=== PATIENT | male | born 1965 | race Caucasian/White ===

== ENCOUNTER 2022-10-30 10:51 | Outpatient (OUT) | payer OTHER, SELFPAY ==
--- NOTE | 2022-10-30 11:30 | NM_ITS ---
[address] [address] Patient Name: PATRICE KANG MRN: [id number] date: 1965 Sex: M Assigned Patient Location: [place] Current [place] Location: [place] Accession/Order Number: [id number] Exam Date: 10/30/2022 11:10 Report Date: 10/30/2022 14:36 At the request of: JOAN LOTFON Procedure: [place] muga EXAMINATION: [place] muga HISTORY: Acute on chronic systolic heart failure COMPARISON: No relevant comparison available. TECHNIQUE: Pyrophosphate 12 mg. Sodium Pertechnetate 25.7 mCi FINDINGS: BEATS ACCEPTED: 486 BEATS REJECTED: 14 HEAR RATE: 56 bpm. LEFT VENTRICLE EJECTION FRACTION: 54% (Normal >55%) IMPRESSION: 1. Borderline low left ventricular ejection fraction (just below lower limits of normal). Electronically authenticated by: TISH MALDONADO Date: 10/30/2022 14:36
== END 2022-10-30 10:52 | disposition home or self-care (01) ==
LOC: NM 10:55
PROVIDERS: Visit Provider Nurse Practitioner
DX: I50.23 Acute on chronic systolic (congestive) heart failure (principal); I42.8 Other cardiomyopathies; R94.39 Abnormal result of other cardiovascular function study
CPT/HCPCS: 78472; A9560

== ENCOUNTER 2022-11-08 13:00 | Outpatient (OUT) | payer OTHER, SELFPAY ==
--- NOTE | 2022-11-08 13:55 | XR_ITS ---
The [address] [address] Patient Name: PATRICE KANG MRN: [id number] date: 1965 Sex: M Assigned Patient Location: LAB Current Patient Location: LAB Accession/Order Number: [id number] Exam Date: 11/08/2022 13:48 Report Date: 11/11/2022 09:12 At the request of: JOAN LOFTON Procedure: XR chest 2V EXAMINATION: XR chest 2V HISTORY: Long-term drug use (amiodarone) Z79.899 COMPARISON: 05/30/2022 TECHNIQUE: PA and lateral FINDINGS: LUNGS: No significant pulmonary parenchymal abnormalities. VASCULATURE: No increased pulmonary vasculature. PLEURA: No pneumothorax, effusion, or pleural thickening. CARDIAC: No cardiomegaly or cardiac silhouette abnormality. MEDIASTINUM: No visible mass or adenopathy. BONES: No fracture or visible bone lesion. Healed left lateral fifth rib fracture OTHER: Negative. XR/XR chest 2V IMPRESSION: No acute cardiopulmonary process Electronically authenticated by: CRISTAL IVORY Date: 11/11/2022 09:12
[2022-11-08 14:37] LABS: Free T4 1.14 ng/dL (0.76-1.46)
[2022-11-08 14:39] LABS: Alanine Aminotransferase 24 U/L (16-63); Albumin Globulin Ratio 1.1; Alkaline Phosphatase 47 U/L (46-116); Aspartate Amino Transferase 20 U/L (15-37); Bilirubin Direct 0.2 mg/dL (0.0-0.2); Bilirubin Total 0.6 mg/dL (0.2-1.0); Globulin 3.6 g/dL; Thyroid Stimulating Hormone 1.912 uIU/mL (0.358-3.740); Total Protein 7.6 g/dL (6.4-8.2)
== END 2022-11-08 13:01 | disposition home or self-care (01) ==
LOC: LAB 13:02
PROVIDERS: Visit Provider Nurse Practitioner
DX: Z79.899 Other long term (current) drug therapy (principal)
CPT/HCPCS: 36415; 71046; 80076; 84439; 84443

== ENCOUNTER 2022-11-14 12:52 | Outpatient (OUT) | payer OTHER, SELFPAY ==
[2022-11-14 12:59] LABS: Hemoglobin 15.9 g/dL (14.0-18.0)
--- NOTE | 2022-11-14 14:10 | RT_ITS ---
The [facility] Test Date: 2022-11-14 Pat Name: PATRICE KANG Department: Room: - Gender: Male Community Pharmacist: Jorge Boyle RRT : 1965 Requested By: [id number] Order Number: [id number] Reading MD: Deniz Hargrove Interpretive Statements Pulmonary function testing was completed according to ATS criteria. Findings were considered accurate and reproducible, with exception of pre-bronchodilator FVC which did not meet ATS standards. Both pre- and post-bronchodilator values utilized for spirometry. No prior studies available for comparison. Spirometry (based on pre-bronchodilator values): -FEV1/FVC: Reduced @ 67% -FEV1: Normal @ 104% -FVC: Normal @ 119% Spirometry (based on post-bronchodilator values): -FEV1/FVC: Low normal @ 74% -FEV1: Normal @ 109% -FVC: Normal @ 114% -There is no significant bronchodilator response. Lung volumes by plethysmography (based on pre-bronchodilator values): -RV: Increased @ 143% -TLC: High normal @ 120% Diffusion capacity: -DLCO: ??zahra severe reduction @ 12% when corrected for Hb 15.9g/dL Flow-volume loop: -Mild obstructive pattern Impressions: -Spirometry appears to trend to mild obstruction (given non-repeatability of initial FVC) without a bronchodilator response. Elevated RV suggests air trapping. Extreme reduction in diffusion capacity out of proportion to spirometry and plethysmography, even if accounting for patient smoking prior to testing - I question the vailidity of this value. May consider repeating diffusion capacity, or correlate with clinical status. Electronically Signed On 11-18-2022 12:54:16 EDT by Deniz Hargrove
[2022-11-14] MEDS: ALBUTEROL SULFATE 2.5 MG/3 ML VIAL NEB IH (14:25)
== END 2022-11-14 12:53 | disposition home or self-care (01) ==
LOC: CARD 12:53
PROVIDERS: Visit Provider Nurse Practitioner
DX: Z79.899 Other long term (current) drug therapy (principal); F17.210 Nicotine dependence, cigarettes, uncomplicated
CPT/HCPCS: 36415; 85018; 94060; 94726; 94729; 99406

== ENCOUNTER 2022-11-19 19:32 | Outpatient (OUT) | payer OTHER, SELFPAY | END 2022-11-19 19:33 | disposition home or self-care (01) | LOC: SLEEP 19:32 | PROVIDERS: PCP Nurse Practitioner; Visit Provider Nurse Practitioner | DX: G47.33 Obstructive sleep apnea (adult) (pediatric) (principal); G47.31 Primary central sleep apnea | CPT/HCPCS: 95810 ==

== ENCOUNTER 2022-12-03 19:44 | Outpatient (OUT) | payer OTHER, SELFPAY | END 2022-12-03 19:45 | disposition home or self-care (01) | LOC: SLEEP 19:45 | PROVIDERS: PCP Nurse Practitioner; Visit Provider Nurse Practitioner | DX: G47.33 Obstructive sleep apnea (adult) (pediatric) (principal) | CPT/HCPCS: 95811 ==

== ENCOUNTER 2023-04-16 14:45 | Outpatient (OUT) | payer OTHER, SELFPAY ==
--- NOTE | 2023-04-16 15:45 | CA_ITS ---
Patient Name: PATRICE KANG MR#: [id number] : 1965 Exam Date: 04/16/2023 Ordering Doctor: RICA MAJOR ECHOCARDIOGRAM REPORT PROCEDURE: CA ECHO DOPPLER COMPLETE INDICATIONS: Heart failure with reduced ejection fraction COMPARISON: None. DESCRIPTION: COMPLETE ECHOCARDIOGRAM Real-time transthoracic echocardiography with 2D, M-mode, spectral and color flow Doppler performed. QUALITY: Technical quality was good. LEFT VENTRICLE: Normal chamber size. Normal left ventricular wall thickness. LV EF: Global left ventricular systolic function is mildly decreased. Visual estimation of left ventricular ejection fraction is 45-50%. Diffuse hypokinesis. DIASTOLIC: Grade I diastolic dysfunction. ATRIAL SEPTUM: Inadequately seen. LEFT ATRIUM: Mild dilatation. RIGHT ATRIUM: Mild dilatation. RIGHT VENTRICLE: Normal chamber size. Normal right ventricular systolic function. TRICUSPID VALVE: Normal mobility and thickness. Mild regurgitation. No evidence of pulmonary hypertension. RVSP 28mmHg MITRAL VALVE: Normal mobility and thickness. No evidence of mitral valve stenosis. Mild mitral annular calcification. Moderate mitral regurgitation. AORTIC VALVE: Normal trileaflet appearance. No visible sclerosis. Normal leaflet mobility. No evidence of aortic valve stenosis. Trivial aortic regurgitation. AORTIC ROOT: Normal diameter and appearance. PULMONIC VALVE: Normal thickness and mobility. No stenosis. No regurgitation. PERICARDIUM: No evidence of pericardial effusion. IVC: Collapses with inspirations. Normal size. CONCLUSION: 1. Global left ventricular systolic function is mildly decreased; visually estimated ejection fraction is 45 to 60% 2. Normal right ventricular size and systolic function 3. Biatrial enlargement 4. Grade 1 diastolic dysfunction 5. Mild tricuspid regurgitation 6. Moderate mitral regurgitation Adult Echocardiography Procedure Report Left Ventricle LVEDD (3.7 - 5.6 cm): 5.21 cm LVESD (2.2 - 4.0 cm): 3.76 cm LVIVS thickness (0.6 - 1.2 cm): 0.92 cm LVPW thickness (0.5 - 1.0 cm): 1.01 cm e': 0.09 m/s E - e': 7.66 LVOT Max Gradient: 3.69 mm[Hg] LVOT Area (cm2): 0.96 m/s Peak Velocity (LVOT): 0.96 m/s Mean Velocity (LVOT): 0.64 m/s LVOT Diameter 2.11 cm Left Ventricular Ejection Fraction: 49.16 % Left Atrium LA Volume Index (2D A2C): 35.97 ml/m2 Left Atrium Systolic Dimension: 3.48 cm Mitral Valve MV E to A Ratio: 0.80 Mitral Valve A-Wave Peak Velocity: 0.89 m/s Mitral Valve E-Wave Peak Velocity: 0.71 m/s Right Ventricle RV Internal Diastolic Dimension: 3.42 cm Aorta AO Root Diam: 3.39 cm Ascending Ao Diam: 3.33 cm Aortic Valve AoV Area (Peak Celso): 2.71 cm2, 2.71 cm2 AoV Area (VTI): 2.33 cm2, 2.33 cm2 Peak Velocity(Antegrade Flow): 1.24 m/s Peak Gradient(Antegrade Flow): 6.15 mm[Hg] Mean Velocity(Antegrade Flow): 0.87 m/s Mean Gradient(Antegrade Flow): 3.42 mm[Hg] Velocity Time Integral: 28.75 cm Tricuspid Valve Peak Velocity (Regurgitant Flow): 2.21 m/s, 2.26 m/s, 2.52 m/s, 2.46 m/s Pulmonic Valve Mean Gradient: 2.33 mm[Hg], 1.91 mm[Hg], 1.80 mm[Hg] Mean Velocity: 0.74 m/s, 0.64 m/s, 0.62 m/s Peak Velocity: 0.97 m/s Peak Gradient: 3.73 mm[Hg], 3.51 mm[Hg], 3.96 mm[Hg] Right Atrium Right Atrium Systolic Pressure: 60.70 ml, 60.70 ml Dictated by: Donald Riojas M.D. on 04/18/2023 at 10:26 Approved by: Donald Riojas M.D. on 04/18/2023 at 10:30
--- OUTSIDE RECORDS SUMMARY | 2023-04-17 09:46 | XMS_ITS | CCD ---
Author Name Unknown Address [address] [place] [address] Organization [facility] Care Team Providers Care Financial Sales Consultant Name Role Phone Provider, None Unavailable Unavailable Le, Devyn K Unavailable Unavailable Le, Devyn K Unavailable Unavailable Le, Devyn K Unavailable Unavailable Le, Devyn K Unavailable Unavailable Provider, None Unavailable Unavailable Provider, None Unavailable Unavailable BOWLUS, MESFIN H Unavailable Unavailable BOWLUS, MESFIN H Unavailable Unavailable Provider, None Unavailable Unavailable BOWLUS, MESFIN H Unavailable Unavailable BOWLUS, MESFIN H Unavailable Unavailable REQUEST, NONE LISTED Primary Care Unavaila ble MISC, DR MINOR Consulting Unavailable MISC, DR MINOR Admitting Unavailable MISC, DR MINOR Attending Unavailable REQUEST, NONE LISTED Primary Care Unavaila ble MISC, DR MINOR Consulting Unavailable MISC, DR MINOR Admitting Unavailable MISC, DR MINOR Attending Unavailable MISC, DR MINOR Attending Unavailable REQUEST, NONE LISTED Primary Care Unavaila ble MISC, DR MINOR Consulting Unavailable MISC, DR MINOR Admitting Unavailable REQUEST, DR SILVESTRE LISTED Primary Care Unavaila ble FAWWAD, SHAIKH Kasie Admitting Unavailable HAY ., DR SEN Consulting Unavailable FAWWAD, SHAIKH Kasie Attending Unavailable Cristal Hinkle Consulting Unavailable FAWWASHAIKH Kasie Blackmon Consulting Unavailable BRIA OMALLEY Consulting Unavailable SAMARA THIBODEAUX Attending Unavailable ANTOLIN AYALA Attending Unavailable JOAN LOFTON Attending Unavailable JOAN LOFTON Attending Unavailable GANSEVERINO WATTERS Referring Unavailab le GANGWANI, SEVERINO KIMBALL Referring Unavailab le CHUYSIXTO Referring Unavailable GANGWANI, SEVERINO KIMBALL Admitting Unavailab le AHMEDCAMILLEB Attending Unavailable AHMED, DAVID Referring Unavailable AHMED, DAVID Referring Unavailable AVINASH, HANI Referring Unavailable AVINASH, TREVERI Referring Unavailable SAMARA THIBODEAUX Attending Unavailable Allergies Allergy Classification Reported Allergen(s) Allergy Type Date of Onset Reaction(s) Facility (1 source) No Known Medication Allergies; Translations: [No Known Medication Allergies] Propensity to adverse reactions to drug (disorder) [facility] Repository (1 source) ALLERGIES NOT ON FILE; Translations: [ALLERGIES NOT ON FILE] Propensity to adverse reactions (disorder) [facility] Repository Problems Active Problems Problem Classification Problem Date Documented Date Episodic/Chronic Alcohol-related disorders (1 source) Alcohol dependence, uncomplicated; Translations: [ALCOHOL DEPENDENCE UNCOMPLICATED] Onset: 06-04-2022 Chronic Cardiac dysrhythmias (9 sources) Unspecified atrial fibrillation; Translations: [Ventricular premature depolarization] Onset: 05-30-2022 Chronic Congestive heart failure; nonhypertensive (11 sources) Acute on chronic systolic (congestive) heart failure; Translations: [Acute systolic (congestive) heart failure] Onset: 05-31-2022 Chronic Coronary atherosclerosis and other heart disease (2 sources) Atherosclerotic heart disease of [place] coronary artery without angina pectoris; Translations: [Atherosclerotic heart disease of [place] coronary artery without angina pectoris] Onset: 07-02-2022 Chronic Substance-related disorders (3 sources) Nicotine dependence, cigarettes, uncomplicated; Translations: [Nicotine dependence, unspecified, uncomplicated] Onset: 06-04-2022 Chronic Unclassified (1 source) CONTACT W/AND (SUSP) EXPOS COVID-19; Translations: [CONTACT W/AND (SUSP) EXPOS COVID-19] Onset: 06-04-2022 Unclassified (2 sources) Other persistent atrial fibrillation; Translations: [Other persistent atrial fibrillation] Onset: 06-03-2022 Past or Other Problems Problem Classification Problem Date Documented Da te Episodic/Chronic Nonspecific chest pain (1 source) Other chest pain; Translations: [OTHER CHEST PAIN] Onset: 06-04-2022 Episodic Other aftercare (2 sources) Other correction (current) drug therapy; Translations: [Other correction (current) drug therapy] Onset: 11-08-2022 Episodic Results Test Name Value Interpretation Reference Range Facility Orders Onlyon 04-04-2023 Orders Only [id number] Shashi Kang 1965 M Date Provider Department Center 04/04/2023 JOHAN MILES [facility] Family History Problem Relation Age of Onset Hypertension Mother Hypertension Father Coronary artery disease Sister Family Status - Relation Status Age at Mother Father Sister Normal [facility] Prep for Procedureon 023 Prep for Procedure [id number] Patrice Kang Severo 1965 [facility] Provider Department Center 04/04/2023 1987-CHANTAL SHEEHAN [facility] [place] [facility] Family History Problem Relation Age of Onset Hypertension Mother Hypertension Father Coronary artery disease Sister Family Status - Relation Status Age at Mother Father Sister Normal [facility] Office Visiton 04-01-2023 Follow-up visit [id number] Shashi Kang E 1965 [facility] Provider Department Center 04/01/2023 241-ANTOLIN AYALA [facility] Family History Problem Relation Age of Onset Hypertension Mother Hypertension Father Coronary artery disease Sister Family Status - Relation Status Age at Mother Father Sister Level of Service:26628 [place] OFFICE/OUTPATIENT NEW MODERATE MDM 45-59 MINUTES Normal [facility] Office Visiton 11-08-2022 Follow-up visit [id number] Shashi Kang E 1965 [facility] Provider Department Center 11/08/2022 JOAN HERNANDEZ [facility] Family History Problem Relation Age of Onset Hypertension Mother Hypertension Father Coronary artery disease Sister Family Status - Relation Status Age at Mother Father Sister Level of Service:10974 [place] OFFICE/OUTPATIENT ESTABLISHED MOD MDM 30-39 MIN Normal [facility] Orders Onlyon 09-27-2022 Orders Only [id number] Shashi Kang E 1965 [facility] Provider Department Center 09/27/2022 [place]-JOHAN MORTON [facility] Family History Problem Relation Age of Onset Hypertension Mother Hypertension Father Family Status - Relation Status Age at Mother Father Normal [facility] Office Visiton 09-24-2022 Follow-up visit [id number] Shashi Kang E 1965 Date Provider Department Center 09/24/2022 JOAN HERNANDEZ Family History Problem Relation Age of Onset Hypertension Mother Hypertension Father Family Status - Relation Status Age at Mother Father Level of Service:71535 [place] OFFICE/OUTPATIENT ESTABLISHED MOD MDM 30-39 MIN Normal [facility] ECHOCARDIO M/2D COMPLETEon 0 09-11-2022 ECHOCARDIO M/2D COMPLETE Patient: PATRICE KANG Exam Date: 09/11/2022 : 1965 Gender:M Ordering : MRS. SAMARA THIBODEAUX NP Admission #: [id number] Family : Order #: [id number] CLICK HERE TO VIEW EXAM ECHOCARDIOGRAM REPORT PROCEDURE: CARDIO PULMONARY ECHOCARDIO M/2D COMP INDICATIONS: Chronic systolic heart failure, smoker COMPARISON: None. DESCRIPTION: COMPLETE ECHOCARDIOGRAM Real-time transthoracic echocardiography with 2D, M-mode, spectral and color flow Doppler performed. QUALITY: Technical quality was good. LEFT VENTRICLE: Normal chamber size. Normal left ventricular wall thickness. Systolic function is difficult to assess due to frequent PVCs but appears moderately reduced. LV EF: Moderately reduced left ventricular ejection fraction, (30-35%). DIASTOLIC: Grade II diastolic dysfunction. ATRIAL SEPTUM: Visually appears intact. LEFT ATRIUM: Mild dilatation. RIGHT ATRIUM: Mild dilatation. RIGHT VENTRICLE: Mild dilatation. Normal systolic function. TRICUSPID VALVE: Normal mobility and thickness. No stenosis with mild regurgitation. No evidence of pulmonary hypertension. RVSP 26 mmHg MITRAL VALVE: Mildly thickened with normal mobility. No evidence of mitral valve stenosis. Mild mitral annular calcification. Mild to moderate mitral regurgitation. AORTIC VALVE: Normal trileaflet appearance. No visible sclerosis. Normal leaflet mobility. No evidence of aortic valve stenosis. Trivial aortic regurgitation. AORTIC ROOT: Normal diameter and appearance. PULMONIC VALVE: Normal thickness and mobility. No stenosis. Trivial regurgitation. PERICARDIUM: No evidence of pericardial effusion. IVC: Collapses with inspirations. PLEURA: CONCLUSION: 1. Left ventricular systolic function is difficult to assess due to frequent PVCs but appears to be moderately reduced. LVEF is 30 to 35%. 2. Grade 2 diastolic dysfunction. 3. Mildly dilated right ventricle with normal systolic function. 4. Mild biatrial dilatation. 5. Mild to moderate mitral regurgitation. 6. Mild tricuspid regurgitation. 7. Normal right-sided pressures. Adult Echocardiography Procedure Report Left Ventricle LVEDD (3.7 - 5.6 cm): 5.31 cm LVESD (2.2 - 4.0 cm): 4.12 cm LVIVS thickness (0.6 - 1.2 cm): 0.90 cm LVPW thickness (0.5 - 1.0 cm): 0.95 cm e': 0.10 m/s E - e': 8.92 LVOT Max Gradient: 3.48 mm[Hg] Peak Velocity (LVOT): 0.93 m/s LVOT Diameter 2.50 cm Left Ventricular Ejection Fraction: 30-35 % Left Atrium LA Volume Index (2D A2C): 49.13 ml, 49.13 ml Left Atrium Systolic Dimension: 3.86 cm Mitral Valve MV E to A Ratio: 1.39 Mitral Valve A-Wave Peak Velocity: 0.67 m/s Mitral Valve E-Wave Peak Velocity: 0.93 m/s Right Ventricle Aorta AO Root Diam: 3.64 cm Ascending Ao Diam: 3.21 cm Aortic Valve AoV Area (Peak Celso): 3.56 cm2, 3.56 cm2 Peak Velocity(Antegrade Flow): 1.28 m/s Peak Gradient(Antegrade Flow): 6.59 mm[Hg] Mean Velocity(Antegrade Flow): 0.85 m/s Mean Gradient(Antegrade Flow): 3.31 mm[Hg] Velocity Time Integral: 30.08 cm Tricuspid Valve Peak Velocity (Regurgitant Flow): 1.85 m/s, 2.40 m/s Peak Velocity: 0.29 m/s Pulmonic Valve Peak Velocity: 0.90 m/s, 0.98 m/s Peak Gradient: 3.26 mm[Hg], 3.85 mm[Hg] Right Atrium Right Atrium Systolic Pressure: 44.31 ml, 44.31 ml Dictated by: To Lovett M.D. on 09/11/2022 at 19:02 Approved by: To Lovett M.D. on 09/11/2022 at 19:07 [facility] 37on 07-02-2022 37 -Decrease Carvedilol to 3.125 mg twice a day Normal [facility] Office Visiton 07-02-2022 Follow-up visit [id number] Shashi Kang 1965 M Date Provider Department Center 07/02/2022 [id number] THIBODEAUX [facility] Family History Problem Relation Age of Onset Hypertension Mother Hypertension Father Family Status - Relation Status Age at Mother Father Level of Service:24998 [place] OFFICE/OUTPATIENT ESTABLISHED MOD MDM 30-39 MIN Reason for Visit and Comments: Congestive Heart Failure [127] Atrial Fibrillation [80] Coronary Artery Disease [187] Normal [facility] BNPon 06-12-2022 Natriuretic peptide B (Bld) [Mass/Vol] 1166.0 pg/mL Critically high <=900.0 [facility] Comment on above: Performed By: #### HSTROPN #### [facility] [address] [address] [address] Travis Anthony PROF 14(COMP METB)on 023 Albumin [Mass/Vol] 3.2 g/dL Critically low 3.4-5.0 [facility] Comment on above: Performed By: #### HSTROPN #### [facility] [address] [address] [address] Travis Anthony Albumin/Globuli n [Mass ratio] 1.0 {ratio} Normal [facility] Comment on above: Performed By: #### HSTROPN #### [facility] [address] [address] [address] Travis Anthony ALP [Catalytic activity/Vol] 59 U/L Normal 46-116 [facility] Comment on above: Performed By: #### HSTROPN #### [facility] [address] [address] [address] Travis Anthony ALT [Catalytic activity/Vol] 25 U/L Normal 16-63 [facility] Comment on above: Performed By: #### HSTROPN #### [facility] [address] [address] [address] Travis Anthony Anion gap [Moles/Vol] 13.4 mmol/L Normal [facility] Comment on above: Performed By: #### HSTROPN #### [facility] [address] [address] [address] Travis Anthony AST [Catalytic activity/Vol] 12 U/L Critically low 15-37 [facility] Comment on above: Performed By: #### HSTROPN #### [facility] [address] [address] [address] Travis Anthony Bilirubin [Mass/Vol] 0.2 mg/dL Normal 0.2-1.0 [facility] Comment on above: Performed By: #### HSTROPN #### [facility] [address] [address] [address] Travis Anthony Calcium [Mass/Vol] 8.9 mg/dL Normal 8.5-10.1 [facility] Comment on above: Performed By: #### HSTROPN #### [facility] [address] [address] [address] Travis Anthony Chloride [Moles/Vol] 105 mmol/L Normal 98-[address] [facility] Comment on above: Performed By: #### HSTROPN #### [facility] [address] [address] [address] Travis Anthony CO2 [Moles/Vol] 24.1 mmol/L Normal 21.0-32.0 [facility] Comment on above: Performed By: #### HSTROPN #### [facility] [address] [address] [address] Travis Anthony Creatinine [Mass/Vol] 1.27 mg/dL Normal 0.70-1.30 [facility] Comment on above: Performed By: #### HSTROPN #### [facility] [address] [address] [address] Travis Anthony EGFR-AF GUYANESE >60 Normal >=60 [facility] Comment on above: Performed By: #### HSTROPN #### [facility] [address] [address] [address] Travis Anthony EGFR-NON AF GUYANESE 59 mL/min/1.73m2 Critically low >=[address] [facility] Comment on above: Performed By: #### HSTROPN #### [facility] [address] [address] [address] Travis Anthony Globulin (S) [Mass/Vol] 3.3 g/dL Normal [facility] Comment on above: Performed By: #### HSTROPN #### [facility] [address] [address] [address] Travis Anthony Glucose [Mass/Vol] 149 mg/dL Critically high 74-[address] [facility] Comment on above: Performed By: #### HSTROPN #### [facility] [address] [address] [address] Travis Anthony Potassium [Moles/Vol] 4.5 mmol/L Normal 3.5-5.1 [facility] Comment on above: Performed By: #### HSTROPN #### [facility] [address] [place] [address] Dr. Travis Anthony Protein [Mass/Vol] 6.5 g/dL Normal 6.4-8.2 [facility] Comment on above: Performed By: #### HSTROPN #### [facility] [address] [address] [address] Travis Anthony Sodium [Moles/Vol] 138 mmol/L Normal 136-145 [facility] Comment on above: Performed By: #### HSTROPN #### [facility] [address] [place] [address] Dr. Travis Anthony Urea nitrogen [Mass/Vol] 15.0 mg/dL Normal 7.0-18.0 [facility] Comment on above: Performed By: #### HSTROPN #### [facility] [address] [place] [address] Dr. Travis Anthony Urea nitrogen/Creati nine [Mass ratio] 11.8 mg/mg Normal [facility] Comment on above: Performed By: #### HSTROPN #### [facility] [address] [place] [address] Dr. Travis Anthony 37on 06-11-2022 37 -Call when you get h ome and provide us a list of the medications you are taking -Get blood work today Normal [facility] CBC AUTO DIFFon 06-11-2022 BASO # 0.1 103/ul Normal 0.0-0.[address] [facility] Comment on above: Performed By: #### HSTROPN #### [facility] [address] [place] [address] Dr. Travis Anthony Basophils/100 WBC (Bld) 1.8 % Normal 0.2-2.0 [facility] Comment on above: Performed By: #### HSTROPN #### [facility] [address] [place] [address] Dr. Travis Anthony EO # 0.2 103/ul Normal 0.0-0.7 [facility] Comment on above: Performed By: #### HSTROPN #### [facility] [address] [place] [address] Dr. Travis Anthony Eosinophils/100 WBC (Bld) 4.0 % Normal 0.9-7.0 [facility] Comment on above: Performed By: #### HSTROPN #### [facility] [address] [place] [address] Dr. Travis Anthony Erythrocyte distribution width (RBC) [Ratio] 12.9 % Normal 11.0-15.0 [facility] Comment on above: Performed By: #### HSTROPN #### [facility] [address] [place] [address] Dr. Travis Anthony Hematocrit (Bld) [Volume fraction] 50.0 % Normal 42.0-54.0 [facility] Comment on above: Performed By: #### HSTROPN #### [facility] [address] [place] [address] Dr. Travis Anthony Hemoglobin (Bld) [Mass/Vol] 16.9 g/dL Normal 14.0-18.0 [facility] Comment on above: Performed By: #### HSTROPN #### [facility] [address] [place] [address] Dr. Travis Anthony IG # 0.01 10e3/ul Normal 0.00-0.03 [facility] Comment on above: Performed By: #### HSTROPN #### [facility] [address] [place] [address] Dr. Travis Anthony IG % 0.2 % Normal 0.0-0.[address] [facility] Comment on above: Performed By: #### HSTROPN #### [facility] [address] [place] [address] Dr. Travis Anthony LYMPH # 2.3 103/ul Normal 1.2-3.8 [facility] Comment on above: Performed By: #### HSTROPN #### [facility] [address] [address] [address] Travis Anthony Lymphocytes/100 WBC (Bld) 39.3 % Normal 20.5-60.0 [facility] Comment on above: Performed By: #### HSTROPN #### [facility] [address] [place] [address] Dr. Travis Anthony MANUAL DIFF REQ NO Normal [facility] Comment on above: Performed By: #### HSTROPN #### [facility] [address] [address] [address] Travis Anthony MCH (RBC) [Entitic mass] 32.8 pg Normal 25.9-34.0 [facility] Comment on above: Performed By: #### HSTROPN #### [facility] [address] [place] [address] Dr. Travis Anthony MCHC (RBC) [Mass/Vol] 33.8 g/dL Normal 29.9-35.2 [facility] Comment on above: Performed By: #### HSTROPN #### [facility] [address] [place] [address] Dr. Travis Anthony MCV (RBC) [Entitic vol] 96.9 fL Critically high 80.0-94.0 [facility] Comment on above: Performed By: #### HSTROPN #### [facility] [address] [place] [address] Dr. Travis Anthnoy MONO # 0.6 103/ul Normal 0.3-0.8 [facility] Comment on above: Performed By: #### HSTROPN #### [facility] [address] [place] [address] Dr. Travis Anthony Monocytes/100 WBC (Bld) 9.7 % Normal 1.7-12.0 [facility] Comment on above: Performed By: #### HSTROPN #### [facility] [address] [place] [address] Dr. Travis Anthony NEUT # 2.7 103/ul Normal 1.4-6.5 [facility] Comment on above: Performed By: #### HSTROPN #### [facility] [address] [address] [address] Travis Anthony Neutrophils/100 WBC (Bld) 45.0 % Normal 43.0-75.0 [facility] Comment on above: Performed By: #### HSTROPN #### [facility] [address] [address] [address] Travis Anthony Platelet mean volume (Bld) [Entitic vol] 10.9 fL Normal 9.5-13.5 [facility] Comment on above: Performed By: #### HSTROPN #### [facility] [address] [address] [address] Travis Anthony PLT 293 103/ul Normal 150-450 [facility] Comment on above: Performed By: #### HSTROPN #### [facility] [address] [address] [address] Travis Anthony RBC 5.16 106/ul Normal 4.70-6.10 [facility] Comment on above: Performed By: #### HSTROPN #### [facility] [address] [address] [address] Travis Anthony WBC 6.0 103/ul Normal 4.0-11.0 [facility] Comment on above: Performed By: #### HSTROPN #### [facility] [address] [address] [address] Travis Anthony Follow-Upon 06-11-2022 Follow-Up [id number] Shashi Kang E 1965 Date Provider Department Center 06/11/2022 SAMARA JOHNS [facility] Family History Problem Relation Age of Onset Hypertension Mother Hypertension Father Family Status - Relation Status Age at Mother Father Level of Service:11259 [place] OFFICE/OUTPATIENT ESTABLISHED MOD MDM 30-39 MIN Reason for Visit and Comments: Atrial Fibrillation [80] Congestive Heart Failure [127] Normal [facility] Orders Onlyon 06-07-2022 Orders Only [id number] Shashi Kang 1965 Date Provider Department Center 06/07/[address] No family history on file Normal [facility] 30on 06-06-2022 30 Problem: Respiratory - Adult Goal: Achieves optimal ventilation and oxygenation 06/06/2022834 by Aysha Gates RN Outcome: Progressing Flowsheets (Taken 06/06/2022799) Achieves optimal ventilation and oxygenation: Assess for changes in respiratory status Assess for changes in mentation and behavior Position to facilitate oxygenation and minimize respiratory effort Oxygen supplementation based on oxygen saturation or arterial blood gases Problem: Cardiovascular - Adult Goal: Maintains optimal cardiac output and hemodynamic stability 06/06/2022834 by Aysha Gates RN Outcome: Progressing Flowsheets (Taken 06/06/2022799) Maintains optimal cardiac output and hemodynamic stability: Monitor blood pressure and heart rate Monitor urine output and notify Licensed Independent Practitioner for values outside of normal range Assess for signs of decreased cardiac output Problem: Cardiovascular - Adult Goal: Absence of cardiac dysrhythmias or at baseline 06/06/2022834 by Aysha Gates RN Outcome: Progressing Flowsheets (Taken 06/06/2022799) Absence of cardiac dysrhythmias or at baseline: Monitor cardiac rate and rhythm Assess for signs of decreased cardiac output The patient is Moderately Stable - Low risk of patient condition declining or worsening The patient's goals for the shift include rest The clinical goals for the shift include VSS Normal [facility] 30 Problem: Heart Failu re diagnosis knowledge deficit Goal: Patient will verbalize understanding of how heart failure affects the body Outcome: Progressing Goal: Patient will verbalize understanding of how other conditions affect the heart Outcome: Progressing Problem: Fluid retention/overload Goal: Patient will be able to identify signs and symptoms of fluid retention Outcome: Progressing Problem: Heart failure medication adherence Goal: Consistently take heart failure medication as prescribed Outcome: Progressing Problem: Insufficient exercise regimen Goal: Patient will engage in physical activity safely Outcome: Progressing Problem: Heart failure progression and care needs Goal: Patient will verbalize understanding of heart failure progression Outcome: Progressing Problem: Heart failure maintenance Goal: Patient will not experience any symptoms of shortness of breath or body swelling over the next 3 months Outcome: Progressing Problem: Respiratory - Adult Goal: Achieves optimal ventilation and oxygenation Outcome: Progressing Problem: Cardiovascular - Adult Goal: Maintains optimal cardiac output and hemodynamic stability Outcome: Progressing Goal: Absence of cardiac dysrhythmias or at baseline Outcome: Progressing The patient is Moderately Stable - Low risk of patient condition declining or worsening The patient's goals for the shift include rest The clinical goals for the shift include VSS Normal [facility] ANESon 06-06-2022 ANES Attestation signed by Antolin Ayala MD at 06/07/2022 4:32 PM By using the attestations below, the signing clinician agrees that I have read and verify that the documentation has been personally reviewed by me and ensure that the documentation accurately reflects the encounter. GC: I personally saw this patient on the day of the encounter, performed the persaud portion(s) of the service and participated in the management and confirm the resident's documentation. Please note there may be an additional personal documentation from me. Patient: Patrice Kang Procedure Information Date/Time: 06/06/22 1230 Procedure: Cardioversion/defibrillation Location: [facility] [[email or web address]] [facility] / [facility] (Cath) Providers: Eddi Simms MD Clinical information reviewed: Allergies Meds Physical Exam Airway Mallampati: III TM distance: <3 FB Neck ROM: full Cardiovascular Rhythm: irregular Rate: normal Dental Pulmonary - normal exam Abdominal - normal exam Anesthesia Plan ASA 3 (Conscious sedation) Anesthetic plan and risks discussed with patient. Use of blood products discussed with patient who consented to blood products. Additional Equipment Requests Normal [facility] HPon 06-06-2022 HP H&P reviewed. The bereket angel was examined and there are no changes to the H&P. Normal [facility] 30on 06-05-2022 30 The patient is Moder ately Stable - Low risk of patient condition declining or worsening The patient's goals for the shift include Go Home The clinical goals for the shift include Rest and comfort Normal [facility] 30 The patient is Moder ately Stable - Low risk of patient condition declining or worsening The patient's goals for the shift include Go Home The clinical goals for the shift include Rest and comfort Over the shift, the patient did make progress toward the following goals; Problem: Heart Failure diagnosis knowledge deficit Goal: Patient will verbalize understanding of how heart failure affects the body Outcome: Progressing Goal: Patient will verbalize understanding of how other conditions affect the heart Outcome: Progressing Problem: Fluid retention/overload Goal: Patient will be able to identify signs and symptoms of fluid retention Outcome: Progressing Problem: Heart failure medication adherence Goal: Consistently take heart failure medication as prescribed Outcome: Progressing Problem: Insufficient exercise regimen Goal: Patient will engage in physical activity safely Outcome: Progressing Problem: Heart failure progression and care needs Goal: Patient will verbalize understanding of heart failure progression Outcome: Progressing Problem: Heart failure maintenance Goal: Patient will not experience any symptoms of shortness of breath or body swelling over the next 3 months Outcome: Progressing Problem: Respiratory - Adult Goal: Achieves optimal ventilation and oxygenation Outcome: Progressing Problem: Cardiovascular - Adult Goal: Maintains optimal cardiac output and hemodynamic stability Outcome: Progressing Goal: Absence of cardiac dysrhythmias or at baseline Outcome: Progressing Normal [facility] HEPARIN LEVELon 06-05-2022 HEPARIN UNFRACTIONATED (U/ML) IN PPP BY CHROMOGENIC METHOD 0.67 IU/mL Normal 0.3-0.7 [facility] Comment on above: Result Comment: Rivaroxaban and Apixaban will interfere with the anti Xa assay used to monitor UFH and LMWH. Performed By: #### L [id number] ####[facility] (BEAKER)[address] [place] [address] HEPARIN UNFRACTIONATED (U/ML) IN PPP BY CHROMOGENIC METHOD 0.18 IU/mL Low 0.3-0.7 [facility] Comment on above: Result Comment: Rivaroxaban and Apixaban will interfere with the anti Xa assay used to monitor UFH and LMWH. Performed By: #### L [id number] #### [facility] (BEAKER) [address] [place] [address] PLATELET COUNTon 06-05-2022 PLATELETS (10*3/UL) IN BLOOD AUTOMATED COUNT 245 10*3/uL Normal 150-400 [facility] Comment on above: Order Comment: Platelet count every othe r day on days 2-14 of heparin infusion for routine HIT surveillance. Performed By: #### L [id number] ####[facility] (BEAKER)[address] [place] [address] 30on 06-04-2022 30 The patient is Moder ately Stable - Low risk of patient condition declining or worsening The patient's goals for the shift include sleep/comfort The clinical goals for the shift include NPO at 0000 Normal [facility] ANESon 06-04-2022 ANES Attestation signed by Sahil Medrano MD at 06/04/2022 2:01 PM By using the attestations below, the signing clinician agrees that I have read and verify that the documentation has been personally reviewed by me and ensure that the documentation accurately reflects the encounter. GC: I personally saw this patient on the day of the encounter, performed the persaud portion(s) of the service and participated in the management and confirm the resident's documentation. Please note there may be an additional personal documentation from me. Patient: Patrice Kang Procedure Information Date/Time: 06/04/22 1330 Procedure: CARDIOVERSION / DEFIBRILLATION Location: [facility] [[email or web address]] [facility] / [facility] [[email or web address]] [facility] VASCULAR LAB (Cath) Providers: Sahil Medrano MD Clinical information reviewed: Allergies Meds Physical Exam Airway Mallampati: II Cardiovascular Rhythm: irregular Rate: normal Dental Pulmonary Breath sounds clear to auscultation Abdominal Abdomen: soft Anesthesia Plan ASA 3 other (Moderate sedation) Anesthetic plan and risks discussed with patient. Use of blood products discussed with patient who consented to blood products. Plan discussed with fellow and attending. Additional Equipment Requests Normal [facility] APTTon 06-04-2022 ACTIVATED PARTIAL THROMBOPLASTIN TIME IN PPP BY COAGULATION ASSAY 35.2 Seconds High 25.0-35.0 [facility] Comment on above: Order Comment: Baseline aPTT before init iating heparin infusion. Performed By: #### L [id number] #### [facility] (BEAKER) [address] [place] [address] BASIC METABOLIC PANELon Anion gap [Moles/Vol] 8 mmol/L Normal 7-20 [facility] Comment on above: Performed By: #### [id number] #### [facility] (BEAKER) [address] [place] [address] Calcium [Mass/Vol] 8.8 mg/dL Normal 8.6-10.3 [facility] Comment on above: Performed By: #### [id number] #### [facility] (BEAKER) [address] [place] [address] Chloride [Moles/Vol] 110 mmol/L High 98-107 [facility] Comment on above: Performed By: #### [id number] #### [facility] [[email or web address]] HOSPITAL LAB (BEAKER) [address] [place] [address] CO2 [Moles/Vol] 21 mmol/L Normal 21-[address] [facility] Comment on above: Performed By: #### [id number] #### [facility] (BEAKER) [address] [place] [address] Creatinine [Mass/Vol] 1.18 mg/dL Normal 0.70-1.30 [facility] Comment on above: Performed By: #### [id number] #### [facility] ([facility]) [address] [place] [address] GLOMERULAR FILTRATION RATE ML/MIN/1.73 SQ M.PREDICTED 69.1 mL/min/1.73m*2 Normal >60.0 [facility] Comment on above: Result Comment: The [facility]???s estimated glomerular filtration rate (eGFR) will no longer include consideration of race in its calculation. The National Kidney Foundation???s eGFR Task Force developed new recommendations for the estimation of the glomerular filtration rate in the [place] They recommend immediate implementation of the new equation refit without the race variable in all laboratories because the calculation does not include race. In addition to not including race in the calculation and reporting, it included diversity in its development, and has acceptable performance characteristics and potential consequences that do not disproportionately affect any one group of individuals. Performed By: #### L [id number] #### [facility] ([facility]) [address] [place] [address] Glucose [Mass/Vol] 92 mg/dL Normal 70-100 [facility] Comment on above: Performed By: #### [id number] #### [facility] ([facility]) [address] [place] [address] Potassium [Moles/Vol] 4.7 mmol/L Normal 3.5-5.1 [facility] Comment on above: Performed By: #### [id number] #### [facility] ([facility]) [address] [place] [address] Sodium [Moles/Vol] 139 mmol/L Normal 136-145 [facility] Comment on above: Performed By: #### [id number] #### [facility] ([facility]) [address] [place] [address] Urea nitrogen [Mass/Vol] 16 mg/dL Normal 7-25 [facility] Comment on above: Performed By: #### [id number] #### [facility] ([facility]) [address] [place] [address] UREA NITROGEN/CREATI NINE (MASS RATIO) IN SER/PLAS 13.56 Normal [facility] Comment on above: Performed By: #### [id number] #### [facility] ([facility]) [address] [place] [address] HEMOGLOBIN AND HEMATOCRIT, B LOODon 06-04-2022 Hematocrit (Bld) [Volume fraction] 48.7 % Normal 39.0-55.0 [facility] Comment on above: Performed By: #### [id number] #### [facility] ([facility]) [address] [place] [address] Hemoglobin (Bld) [Mass/Vol] 16.2 g/dL Normal 13.0-17.0 [facility] Comment on above: Performed By: #### [id number] #### [facility] ([facility]) [address] [place] [address] HEPARIN LEVELon 06-04-2022 HEPARIN UNFRACTIONATED (U/ML) IN PPP BY CHROMOGENIC METHOD 0.22 IU/mL Low 0.3-0.7 [facility] Comment on above: Order Comment: Check anti-Xa level every 6 hours while on heparin infusion, or per protocol. Result Comment: Marianne roxaban and Apixaban will interfere with the anti Xa assay used to monitor UFH and LMWH. Performed By: #### L [id number] #### [facility] ([facility]) [address] [place] [address] HPon 06-04-2022 HP H&P reviewed. The bereket angel was examined and there are no changes to the H&P. Normal [facility] HP Attestation signed by Sahil Medrano MD at 06/04/2022 2:01 PM By using the attestations below, the signing clinician agrees that I have read and verify that the documentation has been personally reviewed by me and ensure that the documentation accurately reflects the encounter. GC: I personally saw this patient on the day of the encounter, performed the persaud portion(s) of the service and participated in the management and confirm the resident's documentation. Please note there may be an additional personal documentation from me. H&P reviewed. The patient was examined and there are no changes to the H&P. [facility] NURSNOTEon 06-04-2022 NAVJOT Pt was walking the h alls and appeared upset. I asked the patient if everything was okay and got no response. Patient then stated I want to leave, the doctors here never talked to me after my procedure. I have no idea what is going on. I called Tracy Aaron @ 19:57 and explained what was going on. She arrived at the bedside around 20:30. Pt agreed to stay the night but told us I am going home in the morning after I talk with a doctor. Tracy instructed me to tell the dayshift to get cardiology up there [place] in the morning. Patient appears to be calmed down and is watching tv. Meds were passed at 2120 and patient was happier. Will continue to monitor for any adverse effects and the cath site. RANDI Hinkle, RN, BS Normal [facility] PLATELET COUNTon 06-04-2022 PLATELETS (10*3/UL) IN BLOOD AUTOMATED COUNT 269 10*3/uL Normal 150-400 [facility] Comment on above: Order Comment: Baseline platelet count b efore any heparin given. May discontinue if platelet count already obtained today, or if heparin already administered. Performed By: #### L [id number] #### [facility] (BEAKER) [address] [place] [address] 30on 06-03-2022 30 The patient is Moder ately Unstable - Medium risk of patient condition declining or worsening The patient's goals for the shift include sleep/comfort The clinical goals for the shift include NPO at 0000 Over the shift, the patient made progress toward the following goals: Problem: Heart Failure diagnosis knowledge deficit Goal: Patient will verbalize understanding of how heart failure affects the body 06/03/20222137 by Jalyn Kruse RN Outcome: Progressing 06/03/20222137 by Jalyn Kruse RN Outcome: Progressing Goal: Patient will verbalize understanding of how other conditions affect the heart 06/03/20222137 by Jalyn Kruse RN Outcome: Progressing 06/03/20222137 by Jalyn Kruse RN Outcome: Progressing Problem: Fluid retention/overload Goal: Patient will be able to identify signs and symptoms of fluid retention 06/03/20222137 by Jalyn Kruse RN Outcome: Progressing 06/03/20222137 by Jalyn Kruse RN Outcome: Progressing Problem: Heart failure medication adherence Goal: Consistently take heart failure medication as prescribed 06/03/20222137 by Jalyn Kruse RN Outcome: Progressing 06/03/20222137 by Jalyn Kruse RN Outcome: Progressing Problem: Insufficient exercise regimen Goal: Patient will engage in physical activity safely 06/03/20222137 by Jalyn Kruse RN Outcome: Progressing 06/03/20222137 by Jalyn Kruse RN Outcome: Progressing Problem: Heart failure progression and care needs Goal: Patient will verbalize understanding of heart failure progression 06/03/20222137 by Jalyn Kruse RN Outcome: Progressing 06/03/20222137 by Jalyn Kruse RN Outcome: Progressing Problem: Heart failure maintenance Goal: Patient will not experience any symptoms of shortness of breath or body swelling over the next 3 months 06/03/20222137 by Jalyn Kruse RN Outcome: Progressing 06/03/20222137 by Jalyn Kruse RN Outcome: Progressing Problem: Respiratory - Adult Goal: Achieves optimal ventilation and oxygenation Outcome: Progressing Problem: Cardiovascular - Adult Goal: Maintains optimal cardiac output and hemodynamic stability Outcome: Progressing Goal: Absence of cardiac dysrhythmias or at baseline Outcome: Progressing Normal [facility] 30 The patient is Moder ately Stable - Low risk of patient condition declining or worsening The patient's goals for the shift include sleep/comfort The clinical goals for the shift include vss Over the shift, the patient did make progress toward the following goals. Problem: Heart Failure diagnosis knowledge deficit Goal: Patient will verbalize understanding of how heart failure affects the body Outcome: Progressing Goal: Patient will verbalize understanding of how other conditions affect the heart Outcome: Progressing Problem: Fluid retention/overload Goal: Patient will be able to identify signs and symptoms of fluid retention Outcome: Progressing Problem: Heart failure medication adherence Goal: Consistently take heart failure medication as prescribed Outcome: Progressing Problem: Insufficient exercise regimen Goal: Patient will engage in physical activity safely Outcome: Progressing Problem: Heart failure progression and care needs Goal: Patient will verbalize understanding of heart failure progression Outcome: Progressing Problem: Heart failure maintenance Goal: Patient will not experience any symptoms of shortness of breath or body swelling over the next 3 months Outcome: Progressing Normal [facility] 30 The patient is Moder ately Stable - Low risk of patient condition declining or worsening The patient's goals for the shift include sleep/comfort The clinical goals for the shift include vss Over the shift, the patient did not make progress toward the following goals. Barriers to progression include decreased knowledge of the plan of care. Recommendations to address these barriers include educate patient on the plan of care. Normal [facility] CONSULTon 06-03-2022 CONSULT Adult Nutrition Asse ssment: Name: Patrice Kang Date: 1965 Date of Visit: 06/03/22 Admission Dx: Acute systolic heart failure ([facility]) [I50.21] Reason for assessment: MD referral HF Information obtained from: patient, medical record, and nursing No past medical history on file. Current Medications: amiodarone, 400 mg, oral, BID with meals aspirin, 81 mg, oral, Daily with breakfast atorvastatin, 40 mg, oral, Nightly carvedilol, 6.25 mg, oral, BID with meals dapagliflozin, 10 mg, oral, Daily enoxaparin, 1 mg/kg, subcutaneous, BID folic acid, 1 mg, oral, Daily sacubitriL-valsartan, 1 tablet, oral, BID spironolactone, 25 mg, oral, Daily thiamine, 50 mg, oral, Daily Labs: 0 Lab Value Date/Time BUN 16 05/31/20222241 CREATININE 1.17 05/31/20222 NA 138 05/31/20222 K 3.8 05/31/20222241 MG 1.8 (L) 05/31/20222241 HGBA1C 5.3 05/31/20222241 HGB 14.6 05/31/20222241 WBC 7.85 05/31/20222241 CHOL 126 05/31/20222241 HDL 62 05/31/20222241 I/O: Intake/Output Summary (Last 24 hours) at 06/03/2022 1040 Last data filed at 06/02/20228 Gross per 24 hour Intake 1200 ml Output -- Net 1200 ml Allergies: No Known Allergies Nutrition Problems: Skin Integrity: skin intact Nutrition Data/Clinical Indicators of Nutrition Status: Height: 170.2 cm (5' 7 ) Weight: 70.2 kg (154 lb 12.2 oz) BMI (Calculated): 24.23 IBW: 67.3 kg Nutrition Assessment: Nutrition history: non compliant with diet order Pt reports a lot of processed foods like ramen noodles and canned chili. Dietary Orders (From admission, onward) Start Ordered 06/04/22 0001 Diet NPO Diet effective midnight Comments: Sips with medications 06/03/22 1029 05/31/222027 Regular Diet Yes Diet effective now Question Answer Comment Room Service? Yes Fat restriction: Heart Healthy/HTN, CABG,Stroke, (2gNA, low fat, low cholesterol) 05/31/222028 Meal Intakes: 75-100% Nutrition Risk: Low Treatment Plan: Continue current diet Monitor intakes and adjust recommendations as needed Nutrition counseling completed and instruction materials provided Diet Education: Nutrition History: Not compliant with diet recommendations Diet: 2g Na, low fat/low cholesterol Diet Literature: given to patient Expect Comply: good Teach back method: teach back used to show pt understanding, pt understands the importance of diet in relation to their disease, and pt able to repeat info back in own words Goals: Nutrition Goals: intake > 75% meals and compliance w/ MNT Normal [facility] 30on 06-02-2022 30 The patient is Moder ately Stable - Low risk of patient condition declining or worsening The patient's goals for the shift include comfort The clinical goals for the shift include vss Over the shift, the patient did make progress toward the following goals. Problem: Heart Failure diagnosis knowledge deficit Goal: Patient will verbalize understanding of how heart failure affects the body Outcome: Progressing Goal: Patient will verbalize understanding of how other conditions affect the heart Outcome: Progressing Problem: Fluid retention/overload Goal: Patient will be able to identify signs and symptoms of fluid retention Outcome: Progressing Problem: Heart failure medication adherence Goal: Consistently take heart failure medication as prescribed Outcome: Progressing Problem: Insufficient exercise regimen Goal: Patient will engage in physical activity safely Outcome: Progressing Problem: Heart failure progression and care needs Goal: Patient will verbalize understanding of heart failure progression Outcome: Progressing Problem: Heart failure maintenance Goal: Patient will not experience any symptoms of shortness of breath or body swelling over the next 3 months Outcome: Progressing Normal [facility] CONSULTon 06-02-2022 CONSULT Attestation signed by Antolin Ayala MD at 06/02/2022 10:39 PM By using the attestations below, the signing clinician agrees that I have read and verify that the documentation has been personally reviewed by me and ensure that the documentation accurately reflects the encounter. GC: I personally saw this patient on the day of the encounter, performed the persaud portion(s) of the service and participated in the management and confirm the resident's documentation. Please note there may be an additional personal documentation from me. Will aim for GDMT. Offer FRANCISCA guided DCCV and then offer non ivasive eval for stress test in the absence of acute manifestation for ichemia. Cardiology Consult Note Reason for Consult: New onset A. fib/CHFrEF HPI: Patrice Kang is a 56 y.o. male with past medical history significant for tobacco abuse and alcohol use was transferred to [facility] [[email or web address]] from [facility] due to increased exertional dyspnea associated with substernal chest pain. A few months ago he started having shortness of breath with all of the activities that he was doing. He does not follow with physicians. He has a significant family history of CAD with both parents and siblings. He is an active smoker and drinks around 6 beers a day. At an outside facility he was noted to be in atrial fibrillation with RVR and new onset systolic heart failure with an EF of 25%. He was started on Coreg and Entresto for GDMT. Cardiology ROS: GENERAL: Denies fever, chills, night sweats, weight loss. HEENT: Denies changes in vision, photophobia, changes in hearing, epistaxis, oral bleeding. CARDIOVASCULAR: Denies chest pain, exertional dyspnea, orthopnea/PND, lower extremity edema, palpitations, lightheadedness/dizziness, syncope. RESPIRATORY: Denies SOB, coughing, wheezing GI: Denies abdominal pain, nausea/vomiting, heartburn, melena/hematochezia. RENAL: Denies dysuria, hematuria, flank pain. MSK: Denies muscle weakness/pain, arthralgias/joint pain. NEUROLOGIC: Denies LOC, weakness, numbness, headaches. SKIN: Denies abnormal rashes or bleeding. PSYCH: Denies significant anxiety, depression, sleep disturbances. Past Medical History He has no past medical history on file. Surgical History He has no past surgical history on file. Social History He reports that he has been smoking cigarettes. He does not have any smokeless tobacco history on file. He reports current alcohol use of about 6.0 standard drinks per week. He reports current drug use. Drug: Marijuana. Family History No family history on file. Allergies Patient has no known allergies. Medications No medications prior to admission. Last Recorded Vitals Patient Vitals for the past 24 hrs: BP Temp Temp src Pulse Resp SpO2 Weight 06/02/22 0700 130/83 36.4 ???C (97.6 ???F) Temporal (!) 114 -- 96 % 71.9 kg (158 lb 8.2 oz) 06/02/22 0600 -- -- -- 95 -- 90 % -- 06/02/22 0500 103/83 -- -- 96 -- 95 % -- 06/02/22 0400 95/73 36.5 ???C (97.7 ???F) -- 99 -- 92 % -- 06/02/22 0300 106/88 -- -- (!) 112 -- 90 % -- 06/02/22 0200 88/76 -- -- 106 18 90 % -- 06/02/22 0100 101/84 -- -- (!) 111 26 98 % -- 06/02/22 0000 (!) 114/98 36.6 ???C (97.9 ???F) -- 101 21 94 % -- 06/01/22 2300 108/82 -- -- 103 25 99 % -- 06/01/22 2200 (!) 11894 -- -- (!) 122 (!) 27 95 % -- 06/01/22 2100 (!) 112 -- -- 88 18 98 % -- 06/01/22 2000 101/87 36.5 ???C (97.7 ???F) -- 109 26 96 % -- 06/01/22 1900 (!) 65/41 -- -- (!) 112 17 96 % -- 06/01/22 1800 (!) 118/99 -- -- (!) 128 18 97 % -- 06/01/22 1743 (!) 127/109 -- -- (!) 133 -- -- -- 06/01/22 1700 (!) 127/109 -- -- (!) 125 24 97 % -- 06/01/22 1600 107/76 35.9 ???C (96.7 ???F) Temporal 104 (!) 32 98 % -- 06/01/22 1500 -- -- -- 110 22 96 % -- 06/01/22 1400 -- -- -- (!) 113 21 91 % -- 06/01/22 1300 -- -- -- (!) 121 (!) 31 98 % -- 06/01/22 1200 -- -- -- 106 19 98 % -- 06/01/22 1150 (!) 109/94 36.8 ???C (98.3 ???F) Temporal (!) 121 22 97 % -- 06/01/22 1100 -- -- -- (!) 113 -- 99 % -- Physical Examination: GENERAL: AOx3, obese, in no acute distress. HEAD: Atraumatic, normocephalic. EYES: NELLY, EOMI. NECK: No JVD present, no carotid bruits present. CARDIAC: S1, S2 present. RRR. No murmur, rubs, or gallops. RESPIRATORY: CTAB, no increased effort of breathing. ABDOMEN: Soft, nontender, nondistended. EXTREMITIES: No lower extremity edema, peripheral pulses are 2+ bilaterally. NEURO: No focal deficits. PSYCH: appropriate mood, affect. Relevant Lab Results Encounter Date: 05/31/22 ECG 12 lead Result Value Ventricular Rate 84 QRS DURATION 92 QT Interval 382 QTC CALCULATION(BAZETT) 451 R-Cache -56 T Wave Cache 70 Impression Atrial fibrillation Left anterior fascicular block Possible Anterior infarct (cited on or before 31-MAY-2022) (more content not included)... [facility] Attestation signed by Antolin Ayala MD at 06/02/2022 10:39 PM By using the attestations below, the signing clinician agrees that I have read and verify that the documentation has been personally reviewed by me and ensure that the documentation accurately reflects the encounter. GC: I personally saw this patient on the day of the encounter, performed the persaud portion(s) of the service and participated in the management and confirm the resident's documentation. Please note there may be an additional personal documentation from me. Will aim for GDMT. Offer FRANCISCA guided DCCV and then offer non ivasive eval for stress test in the absence of acute manifestation for ichemia. Cardiology Consult Note Reason for Consult: New onset A. fib/CHFrEF HPI: Patrice Kang is a 56 y.o. male with past medical history significant for tobacco abuse and alcohol use was transferred to [email or web address] from [facility] due to increased exertional dyspnea associated with substernal chest pain. A few months ago he started having shortness of breath with all of the activities that he was doing. He does not follow with physicians. He has a significant family history of CAD with both parents and siblings. He is an active smoker and drinks around 6 beers a day. At an outside facility he was noted to be in atrial fibrillation with RVR and new onset systolic heart failure with an EF of 25%. He was started on Coreg and Entresto for GDMT. Cardiology ROS: GENERAL: Denies fever, chills, night sweats, weight loss. HEENT: Denies changes in vision, photophobia, changes in hearing, epistaxis, oral bleeding. CARDIOVASCULAR: Denies chest pain, exertional dyspnea, orthopnea/PND, lower extremity edema, palpitations, lightheadedness/dizziness, syncope. RESPIRATORY: Denies SOB, coughing, wheezing GI: Denies abdominal pain, nausea/vomiting, heartburn, melena/hematochezia. RENAL: Denies dysuria, hematuria, flank pain. MSK: Denies muscle weakness/pain, arthralgias/joint pain. NEUROLOGIC: Denies LOC, weakness, numbness, headaches. SKIN: Denies abnormal rashes or bleeding. PSYCH: Denies significant anxiety, depression, sleep disturbances. Past Medical History He has no past medical history on file. Surgical History He has no past surgical history on file. Social History He reports that he has been smoking cigarettes. He does not have any smokeless tobacco history on file. He reports current alcohol use of about 6.0 standard drinks per week. He reports current drug use. Drug: Marijuana. Family History No family history on file. Allergies Patient has no known allergies. Medications No medications prior to admission. Last Recorded Vitals Patient Vitals for the past 24 hrs: BP Temp Temp src Pulse Resp SpO2 Weight 06/02/22 0700 130/83 36.4 ???C (97.6 ???F) Temporal (!) 114 -- 96 % 71.9 kg (158 lb 8.2 oz) 06/02/22 0600 -- -- -- 95 -- 90 % -- 06/02/22 0500 103/83 -- -- 96 -- 95 % -- 06/02/22 0400 95/73 36.5 ???C (97.7 ???F) -- 99 -- 92 % -- 06/02/22 0300 106/88 -- -- (!) 112 -- 90 % -- 06/02/22 0200 88/76 -- -- 106 18 90 % -- 06/02/22 0100 101/84 -- -- (!) 111 26 98 % -- 06/02/22 0000 (!) 114/98 36.6 ???C (97.9 ???F) -- 101 21 94 % -- 06/01/22 2300 108/82 -- -- 103 25 99 % -- 06/01/22 2200 (!) 118 -- -- (!) 122 (!) 27 95 % -- 06/01/22 2100 (!) 112 -- -- 88 18 98 % -- 06/01/22 2000 101/87 36.5 ???C (97.7 ???F) -- 109 26 96 % -- 06/01/22 1900 (!) 65/41 -- -- (!) 112 17 96 % -- 06/01/22 1800 (!) 118/99 -- -- (!) 128 18 97 % -- 06/01/22 1743 (!) 127/109 -- -- (!) 133 -- -- -- 06/01/22 1700 (!) 127/109 -- -- (!) 125 24 97 % -- 06/01/22 1600 107/76 35.9 ???C (96.7 ???F) Temporal 104 (!) 32 98 % -- 06/01/22 1500 -- -- -- 110 22 96 % -- 06/01/22 1400 -- -- -- (!) 113 21 91 % -- 06/01/22 1300 -- -- -- (!) 121 (!) 31 98 % -- 06/01/22 1200 -- -- -- 106 19 98 % -- 06/01/22 1150 (!) 109/94 36.8 ???C (98.3 ???F) Temporal (!) 121 22 97 % -- 06/01/22 1100 -- -- -- (!) 113 -- 99 % -- Physical Examination: GENERAL: AOx3, obese, in no acute distress. HEAD: Atraumatic, normocephalic. EYES: NELLY, EOMI. NECK: No JVD present, no carotid bruits present. CARDIAC: S1, S2 present. RRR. No murmur, rubs, or gallops. RESPIRATORY: CTAB, no increased effort of breathing. ABDOMEN: Soft, nontender, nondistended. EXTREMITIES: No lower extremity edema, peripheral pulses are 2+ bilaterally. NEURO: No focal deficits. PSYCH: appropriate mood, affect. Relevant Lab Results Encounter Date: 05/31/22 ECG 12 lead Result Value Ventricular Rate 84 QRS DURATION 92 QT Interval 382 QTC CALCULATION(BAZETT) 451 R-Cache -56 T Wave Cache 70 Impression Atrial fibrillation Left anterior fascicular block Possible Anterior infarct (cited on or before 31-MAY-2022) (more content not included)... Normal [facility] 30on 06-01-2022 30 The patient is Moder ately Stable - Low risk of patient condition declining or worsening The patient's goals for the shift include The clinical goals for the shift include VSS Over the shift, the patient did make progress toward the following goals. Problem: Heart Failure diagnosis knowledge deficit Goal: Patient will verbalize understanding of how heart failure affects the body Outcome: Progressing Goal: Patient will verbalize understanding of how other conditions affect the heart Outcome: Progressing Problem: Fluid retention/overload Goal: Patient will be able to identify signs and symptoms of fluid retention Outcome: Progressing Problem: Heart failure medication adherence Goal: Consistently take heart failure medication as prescribed Outcome: Progressing Problem: Insufficient exercise regimen Goal: Patient will engage in physical activity safely Outcome: Progressing Problem: Heart failure progression and care needs Goal: Patient will verbalize understanding of heart failure progression Outcome: Progressing Problem: Heart failure maintenance Goal: Patient will not experience any symptoms of shortness of breath or body swelling over the next 3 months Outcome: Progressing Normal [facility] B-TYPE NATRIURETIC PEPTIDEon 06-01-2022 Natriuretic peptide B (Bld) [Mass/Vol] 1002 pg/mL High 0-100 [facility] Comment on above: Performed By: #### [id number] #### [facility] (BEAKER) [address] [place] [address] BASIC METABOLIC PANELon Anion gap [Moles/Vol] 9 mmol/L Normal 7-20 [facility] Comment on above: Performed By: #### [id number] #### [facility] (BEAKER) [address] [place] [address] Calcium [Mass/Vol] 8.7 mg/dL Normal 8.6-10.3 [facility] Comment on above: Performed By: #### [id number] #### [facility] (BEAKER) [address] [facility] [place] [address] Chloride [Moles/Vol] 105 mmol/L Normal 98-107 [facility] Comment on above: Performed By: #### [id number] #### [facility] (BEAKER) [address] [place] [address] CO2 [Moles/Vol] 24 mmol/L Normal 21-31 [facility] Comment on above: Performed By: #### [id number] #### [facility] (BEAKER) [address] [place] [address] Creatinine [Mass/Vol] 1.17 mg/dL Normal 0.70-1.30 [facility] Comment on above: Performed By: #### [id number] #### [facility] (BEAKER) [address] [facility] [address] GLOMERULAR FILTRATION RATE ML/MIN/1.73 SQ M.PREDICTED 69.8 mL/min/1.73m*2 Normal >60.0 [facility] Comment on above: Result Comment: The [facility]???s estimated glomerular filtration rate (eGFR) will no longer include consideration of race in its calculation. The National Kid[employer] Foundation???s eGFR Task Force developed new recommendations for the estimation of the glomerular filtration rate in the [place] They recommend immediate implementation of the new equation refit without the race variable in all laboratories because the calculation does not include race. In addition to not including race in the calculation and reporting, it included diversity in its development, and has acceptable performance characteristics and potential consequences that do not disproportionately affect any one group of individuals. Performed By: #### [id number] #### [facility] ([facility]) [address] [place] [address] Glucose [Mass/Vol] 101 mg/dL High 70-100 [facility] Comment on above: Performed By: #### [id number] #### [facility] ([facility]) [address] [place] [address] Potassium [Moles/Vol] 3.8 mmol/L Normal 3.5-5.1 [facility] Comment on above: Performed By: #### [id number] #### [facility] ([facility]) [address] [place] [address] Sodium [Moles/Vol] 138 mmol/L Normal 136-145 [facility] Comment on above: Performed By: #### [id number] #### [facility] ([facility]) [address] [place] [address] Urea nitrogen [Mass/Vol] 16 mg/dL Normal 7-25 [facility] Comment on above: Performed By: #### [id number] #### [facility] ([facility]) [address] [place] [address] UREA NITROGEN/CREATI NINE (MASS RATIO) IN SER/PLAS 13.68 Normal [facility] Comment on above: Performed By: #### [id number] #### [facility] ([facility]) [address] [place] [address] CBC WITH AUTO DIFFERENTIALon 06-01-2022 Basophils (Bld) [#/Vol] 0.09 10*3/uL Normal 0.00-0.20 [facility] Comment on above: Performed By: #### [id number] #### [facility] (BEAKER) [address] [facility] [place] [address] Basophils/100 WBC (Bld) 1.1 % High 0.0-1.0 [facility] Comment on above: Performed By: #### [id number] #### [facility] (BEAKER) [address] [place] [address] Eosinophils (Bld) [#/Vol] 0.15 10*3/uL Normal 0.00-0.50 [facility] Comment on above: Performed By: #### [id number] #### [facility] (BEAKER) [address] [facility] [address] Eosinophils/100 WBC (Bld) 1.9 % Normal 0.0-6.0 [facility] Comment on above: Performed By: #### [id number] #### [facility] (BEAKER) [address] [place] [address] Erythrocyte distribution width (RBC) [Ratio] 13.4 % Normal 11.5-15.0 [facility] Comment on above: Performed By: #### [id number] #### [facility] (BEAKER) [address] [place] [address] ERYTHROCYTE MEAN CORPUSCULAR HEMOGLOBIN CONCENTRATION (G/DL) BY AUTOMATED 33.4 g/dL Normal 32.0-35.0 [facility] Comment on above: Performed By: #### [id number] #### [facility] (BEAKER) [address] [place] [address] Hematocrit (Bld) [Volume fraction] 43.7 % Normal 39.0-55.0 [facility] Comment on above: Performed By: #### [id number] #### [facility] (BEAKER) [address] [place] [address] Hemoglobin (Bld) [Mass/Vol] 14.6 g/dL Normal 13.0-17.0 [facility] Comment on above: Performed By: #### [id number] #### [facility] (BEAKER) [address] [facility] [place] [address] Immature granulocytes (Bld) [#/Vol] 0.02 10*3/uL Normal 0.00-0.20 [facility] Comment on above: Performed By: #### [id number] #### [facility] (BEAKER) [address] [place] [address] Immature granulocytes/10 0 WBC (Bld) 0.3 % Normal 0.0-1.0 [facility] Comment on above: Performed By: #### [id number] #### [facility] (BEAKER) [address] [place] [address] Lymphocytes (Bld) [#/Vol] 3.33 10*3/uL Normal 1.20-4.00 [facility] Comment on above: Performed By: #### [id number] #### [facility] (BEAKER) [address] [place] [address] Lymphocytes/100 WBC (Bld) 42.4 % Normal 20.0-45.0 [facility] Comment on above: Performed By: #### [id number] #### [facility] (BEAKER) [address] [place] [address] MCH (RBC) [Entitic mass] 32.9 pg Normal 27.0-33.0 [facility] Comment on above: Performed By: #### [id number] #### [facility] (BEAKER) [address] [place] [address] MCV (RBC) [Entitic vol] 98.4 fL High 82.0-98.0 [facility] Comment on above: Performed By: #### [id number] #### [facility] (BEAKER) [address] [place] [address] Monocytes (Bld) [#/Vol] 0.81 10*3/uL Normal 0.10-1.00 [facility] Comment on above: Performed By: #### [id number] #### [facility] (BEAKER) [address] [place] [address] Monocytes/100 WBC (Bld) 10.3 % Normal 5.0-12.0 [facility] Comment on above: Performed By: #### [id number] #### [facility] ([facility]) [address] [place] [address] Neutrophils (Bld) [#/Vol] 3.45 10*3/uL Normal 1.60-7.60 [facility] Comment on above: Performed By: #### [id number] #### [facility] ([facility]) [address] [place] [address] Neutrophils/100 WBC (Bld) 44.0 % Normal 40.0-72.0 [facility] Comment on above: Performed By: #### [id number] #### [facility] ([facility]) [address] [place] [address] NRBC (PER 100 WBCS) BY AUTOMATED COUNT 0.0 % Normal 0.0-0.0 [facility] Comment on above: Performed By: #### [id number] #### [facility] ([facility]) [address] [place] [address] PLATELETS (10*3/UL) IN BLOOD AUTOMATED COUNT 213 10*3/uL Normal 150-400 [facility] Comment on above: Performed By: #### [id number] #### [facility] ([facility]) [address] [place] [address] RBC (Bld) [#/Vol] 4.44 10*6/uL Normal 4.20-5.70 [facility] Comment on above: Performed By: #### [id number] #### [facility] ([facility]) [address] [place] [address] WBC (Bld) [#/Vol] 7.85 10*3/uL Normal 4.00-10.60 [facility] Comment on above: Performed By: #### [id number] #### [facility] [address] [place] [address] HEMOGLOBIN A1Con 06-01-2022 Glucose [Mass/Vol] 105.41 mg/dL Normal [facility] Comment on above: Performed By: #### [id number] #### [facility] ([facility]) [address] [place] [address] HbA1c (Bld) [Mass fraction] 5.3 % Normal 4.0-6.0 [facility] Comment on above: Performed By: #### [id number] #### [facility] ([facility]) [address] [place] [address] HEPATIC FUNCTION PANELon Albumin [Mass/Vol] 3.6 g/dL Normal 3.5-5.7 [facility] Comment on above: Performed By: #### [id number] #### [facility] ([facility]) [address] [place] [address] ALP [Catalytic activity/Vol] 77 U/L Normal 34-104 [facility] Comment on above: Performed By: #### [id number] #### [facility] ([facility]) [address] [place] [address] ALT [Catalytic activity/Vol] 17 U/L Normal 7-52 [facility] Comment on above: Performed By: #### [id number] #### [facility] ([facility]) [address] [place] [address] AST [Catalytic activity/Vol] 17 U/L Normal 13-39 [facility] Comment on above: Performed By: #### [id number] #### [facility] ([facility]) [address] [place] [address] Bilirubin [Mass/Vol] 0.4 mg/dL Normal 0.3-1.0 [facility] Comment on above: Performed By: #### [id number] #### [facility] ([facility]) [address] [place] [address] Magnesium [Mass/Vol] 0.1 mg/dL Normal 0-0.2 [facility] Comment on above: Performed By: #### [id number] #### [facility] ([facility] [address] [place] [address] Protein [Mass/Vol] 5.9 g/dL Low 6.0-8.3 [facility] Comment on above: Performed By: #### [id number] #### [facility] (BEAKER) [address] [facility] [address] LIPID PANELon 06-01-2022 CHOL/HDL 2.03 mg/dL Normal [facility] Comment on above: Performed By: #### [id number] #### [facility] (BEAKER) [address] [facility] [address] Cholesterol [Mass/Vol] 126 mg/dL Normal 120-200 [facility] Comment on above: Performed By: #### [id number] #### [facility] ([facility] [address] [facility] [address] Magnesium [Mass/Vol] 96 mg/dL Normal 40-149 [facility] Comment on above: Result Comment: TRIGLYCERIDE REFERENCE R DOLORES: 20 YEARS AND OLDER CARDIOVASCULAR RISK LESS THAN 150 mg/dL LOW RISK 150 TO 199 mg/dL BORDERLINE RISK 200 mg/dL AND GREATER HIGH RISK Performed By: #### L [id number] #### [facility] (BEAKER) [address] [place] [address] Magnesium [Mass/Vol] 45 mg/dL Normal 0-160 [facility] Comment on above: Performed By: #### [id number] #### [facility] (BEAKER) [address] [place] [address] Magnesium [Mass/Vol] 62 mg/dL Normal 23-92 [facility] Comment on above: Performed By: #### [id number] #### [facility] (BEAKER) [address] [place] [address] NON HDL CHOL. (LDL+VLDL) 64 Normal [facility] Comment on above: Performed By: #### [id number] #### [facility] (BEAKER) [address] [place] [address] TOTAL VLDL-C 19 mg/dL Normal 0-40 [facility] Comment on above: Performed By: #### [id number] #### [facility] (BEAKER) [address] [place] [address] MAGNESIUMon 06-01-2022 Magnesium [Mass/Vol] 1.8 mg/dL Low 1.9-2.7 [facility] Comment on above: Performed By: #### [id number] ####[facility] [[email or web address] (BEAKER)[address] [place] [address] BNPon 05-30-2022 Natriuretic peptide B (Bld) [Mass/Vol] 4836.0 pg/mL Critically high <=900.0 [facility] Comment on above: Performed By: #### CMP, HSTROPN, BNP ### # [facility] [address] [place] [address] Dr. Travis Anthony CBC AUTO DIFFon 05-30-2022 BASO # 0.1 103/ul Normal 0.0-0.1 [facility] Comment on above: Performed By: #### HSTROPN #### [facility] [address] [place] [address] Dr. Travis Anthony Basophils/100 WBC (Bld) 0.9 % Normal 0.2-2.0 [facility] Comment on above: Performed By: #### HSTROPN #### [facility] [address] [place] [address] Dr. Travis Anthony EO # 0.1 103/ul Normal 0.0-0.7 [facility] Comment on above: Performed By: #### HSTROPN #### [facility] [address] [place] [address] Dr. Travis Anthony Eosinophils/100 WBC (Bld) 1.1 % Normal 0.9-7.0 [facility] Comment on above: Performed By: #### HSTROPN #### [facility] [address] [place] [address] Dr. Travis Anthony Erythrocyte distribution width (RBC) [Ratio] 13.8 % Normal 11.0-15.0 [facility] Comment on above: Performed By: #### HSTROPN #### [facility] [address] [place] [address] Dr. Travis Anthony Hematocrit (Bld) [Volume fraction] 49.4 % Normal 42.0-54.0 [facility] Comment on above: Performed By: #### HSTROPN #### [facility] [address] [place] [address] Dr. Travis Anthony Hemoglobin (Bld) [Mass/Vol] 16.4 g/dL Normal 14.0-18.0 [facility] Comment on above: Performed By: #### HSTROPN #### [facility] [address] [place] [address] Dr. Travis Anthony IG # 0.03 10e3/ul Normal 0.00-0.03 [facility] Comment on above: Performed By: #### HSTROPN #### [facility] [address] [place] [address] Dr. Travis Anthony IG % 0.4 % Normal 0.0-0.5 [facility] Comment on above: Performed By: #### HSTROPN #### [facility] [address] [place] [address] Dr. Travis Anthony LYMPH # 2.1 103/ul Normal 1.2-3.8 [facility] Comment on above: Performed By: #### HSTROPN #### [facility] [address] [place] [address] Dr. Travis Anthony Lymphocytes/100 WBC (Bld) 24.5 % Normal 20.5-60.0 [facility] Comment on above: Performed By: #### HSTROPN #### [facility] [address] [place] [address] Dr. Travis Anthony MANUAL DIFF REQ NO Normal [facility] Comment on above: Performed By: #### HSTROPN #### [facility] [address] [place] [address] Dr. Travis Anthony MCH (RBC) [Entitic mass] 33.7 pg Normal 25.9-34.0 [facility] Comment on above: Performed By: #### HSTROPN #### [facility] [address] [place] [address] Dr. Travis Anthony MCHC (RBC) [Mass/Vol] 33.2 g/dL Normal 29.9-35.[address] [facility] Comment on above: Performed By: #### HSTROPN #### [facility] [address] [place] [address] Dr. Travis Anthony MCV (RBC) [Entitic vol] 101.4 fL Critically high 80.0-94.0 [facility] Comment on above: Performed By: #### HSTROPN #### [facility] [address] [place] [address] Dr. Travis Anthony MONO # 0.8 103/ul Normal 0.3-0.[address] [facility] Comment on above: Performed By: #### HSTROPN #### [facility] [address] [place] [address] Dr. Travis Anthony Monocytes/100 WBC (Bld) 8.8 % Normal 1.7-12.0 [facility] Comment on above: Performed By: #### HSTROPN #### [facility] [address] [place] [address] Dr. Travis Anthony NEUT # 5.5 103/ul Normal 1.4-6.5 [facility] Comment on above: Performed By: #### HSTROPN #### [facility] [address] [place] [address] Dr. Travis Anthony Neutrophils/100 WBC (Bld) 64.3 % Normal 43.0-75.0 [facility] Comment on above: Performed By: #### HSTROPN #### [facility] [address] [place] [address] Dr. Travis Anthony Platelet mean volume (Bld) [Entitic vol] 10.8 fL Normal 9.5-13.[address] [facility] Comment on above: Performed By: #### HSTROPN #### [facility] [address] [place] [address] Dr. Travis Anthony PLT 230 103/ul Normal 150-[address] [facility] Comment on above: Performed By: #### HSTROPN #### [facility] [address] [place] [address] Dr. Travis Anthony RBC 4.87 106/ul Normal 4.70-6.[address] [facility] Comment on above: Performed By: #### HSTROPN #### [facility] [address] [place], [place] [id number] Dr. Travis Anthony WBC 8.5 103/ul Normal 4.0-11.0 [facility] Comment on above: Performed By: #### HSTROPN #### [facility] [address] [place] [address] Dr. Travis Anthony Covid-19 PCR ([facility])on SARS-CoV-2 (COVID-19) RNA FABIAN+probe Ql (Unsp spec) Not detected Normal NOT DETECTED [facility] Comment on above: Result Comment: When diagnostic testing is negative, the possibility of a false negative should be considered in the context of a patient's recent exposures and the presence of clinical signs and symptoms consistent with SARS-CoV-2. This test is not yet approved or cleared by the [place] FDA. When there are no FDA-approved or cleared tests available, and other criteria are met, FDA can make tests available under an emergency access mechanism called an Emergency Use Authorization (EUA). The EUA for this test is supported by the [place] of Health and Human Service's declaration that circumstances exist to justify the emergency use of in vitro diagnostics for the detection and/or diagnosis of the virus that causes COVID-19. This EUA will remain in effect for the duration of the COVID-19 declaration justifying emergency of IVDs, unless it is terminated or revoked by the FDA (after which the test may no longer be used). Performed By: #### H STROPN #### [facility] [address] [place] [address] Dr. Travis Anthony ECHOCARDIO M/2D COMPLETEon 0 05-30-2022 ECHOCARDIO M/2D COMPLETE Patient: PATRICE KANG Exam Date: 05/30/2022 : 1965 Gender:M Ordering : SHAIKH Nick VALDES . Admission #: [id number] Family : Order #: [id number] CLICK HERE TO VIEW EXAM ECHOCARDIOGRAM REPORT PROCEDURE: CARDIO PULMONARY ECHOCARDIO M/2D COMP INDICATIONS: New onset of Afib w/RVR, Chest pain COMPARISON: None. DESCRIPTION: COMPLETE ECHOCARDIOGRAM Real-time transthoracic echocardiography with 2D, M-mode, spectral and color flow Doppler performed. QUALITY: Technical quality was good. LEFT VENTRICLE: Mild dilatation. Normal left ventricular wall thickness. LV EF: Global left ventricular systolic function is severely decreased. Calculated left ventricular ejection fraction is 25%. Severe, diffuse global hypokinesis. DIASTOLIC: Not adequately assessed due to heart rhythm. ATRIAL SEPTUM: Inadequately seen. LEFT ATRIUM: Severe dilatation. RIGHT ATRIUM: Moderate dilatation. RIGHT VENTRICLE: Moderate dilatation. Decreased right ventricular systolic function. TRICUSPID VALVE: Normal mobility and thickness. Moderate regurgitation. Mild pulmonary hypertension. RVSP 40mmHg MITRAL VALVE: Normal mobility and thickness. No mitral valve prolapse. No evidence of mitral valve stenosis. There is no mitral annular calcification. Moderate to severe mitral regurgitation. AORTIC VALVE: Normal trileaflet appearance. No visible sclerosis. Normal leaflet mobility. No evidence of aortic valve stenosis. No aortic regurgitation. AORTIC ROOT: Normal diameter and appearance. PULMONIC VALVE: Normal thickness and mobility. No stenosis. No regurgitation. PERICARDIUM: No evidence of pericardial effusion. IVC: Normal in size with no collapse. CONCLUSION: Global left ventricular systolic function is severely decreased; visually estimated ejection fraction is 20 to 25%. Diffuse global hypokinesis. Biatrial enlargement. The right ventricle is moderately dilated with significantly reduced systolic function. Moderate tricuspid regurgitation. Mildly elevated right-sided pressures. Moderate to severe mitral regurgitation. Adult Echocardiography Procedure Report Left Ventricle LVEDD (3.7 - 5.6 cm): 5.88 cm LVESD (2.2 - 4.0 cm): 4.77 cm LVIVS thickness (0.6 - 1.2 cm): 0.85 cm LVPW thickness (0.5 - 1.0 cm): 0.74 cm e': 0.07 m/s LVOT Max Gradient: 1.72 mm[Hg], 1.24 mm[Hg] Peak Velocity (LVOT): 0.66 m/s, 0.56 m/s Mean Velocity (LVOT): 0.46 m/s, 0.44 m/s LVOT Diameter 2.17 cm Left Atrium LA Volume Index (2D A2C): 126.13 ml, 126.13 ml Left Atrium Systolic Dimension: 4.35 cm Mitral Valve Right Ventricle RV Internal Diastolic Dimension: 4.62 cm Aorta AO Root Diam: 3.17 cm Ascending Ao Diam: 3.32 cm Aortic Valve AoV Area (Peak Celso): 2.54 cm2, 2.75 cm2 AoV Area (VTI): 2.26 cm2, 2.44 cm2 Peak Velocity(Antegrade Flow): 0.88 m/s Peak Gradient(Antegrade Flow): 3.10 mm[Hg] Mean Velocity(Antegrade Flow): 0.58 m/s Mean Gradient(Antegrade Flow): 1.62 mm[Hg] Velocity Time Integral: 13.89 cm Tricuspid Valve Peak Velocity (Regurgitant Flow): 2.32 m/s, 2.55 m/s, 2.82 m/s Peak Velocity: 0.37 m/s Pulmonic Valve Mean Gradient: 1.97 mm[Hg], 1.94 mm[Hg] Mean Velocity: 0.69 m/s, 0.66 m/s Peak Velocity: 0.80 m/s, 0.88 m/s, 0.75 m/s Peak Gradient: 2.59 mm[Hg], 3.08 mm[Hg], 2.24 mm[Hg] Right Atrium Right Atrium Systolic Pressure: 87.92 ml, 87.92 ml Dictated by: Donald Riojas M.D. on 05/31/2022 at 11:15 Approved by: Donald Riojas M.D. on 05/31/2022 at 11:[address] [facility] MAGNESIUMon 05-30-2022 Magnesium [Mass/Vol] 1.7 mg/dL Critically low 1.8-2.[address] [facility] Comment on above: Performed By: #### HSTROPN #### [facility] [address] [place] [address] Dr. Travis Anthony PROF 14(COMP METB)on 023 Albumin [Mass/Vol] 3.7 g/dL Normal 3.4-5.0 [facility] Comment on above: Performed By: #### CMP, HSTROPN, BNP ### # [facility] [address] [address] [address] Travis Anthony Albumin/Globuli n [Mass ratio] 1.0 {ratio} Normal [facility] Comment on above: Performed By: #### CMP, HSTROPN, BNP ### # [facility] [address] [place] [address] Dr. Travis Anthony ALP [Catalytic activity/Vol] 72 U/L Normal 46-116 [facility] Comment on above: Performed By: #### CMP, HSTROPN, BNP ### # [facility] [address] [place] [address] Dr. Travis Anthony ALT [Catalytic activity/Vol] 25 U/L Normal 16-63 [facility] Comment on above: Performed By: #### CMP, HSTROPN, BNP ### # [facility] [address] [place] [address] Dr. Travis Anthony Anion gap [Moles/Vol] 16.8 mmol/L Normal [facility] Comment on above: Performed By: #### CMP, HSTROPN, BNP ### # [facility] [address] [place] [address] Dr. Travis Anthony AST [Catalytic activity/Vol] 21 U/L Normal 15-37 [facility] Comment on above: Performed By: #### CMP, HSTROPN, BNP ### # [facility] [address] [place] [address] Dr. Travis Anthony Bilirubin [Mass/Vol] 0.7 mg/dL Normal 0.2-1.0 [facility] Comment on above: Performed By: #### CMP, HSTROPN, BNP ### # [facility] [address] [place] [address] Dr. Travis Anthony Calcium [Mass/Vol] 9.5 mg/dL Normal 8.5-10.[address] [facility] Comment on above: Performed By: #### CMP, HSTROPN, BNP ### # [facility] [address] [place] [address] Dr. Travis Anthony Chloride [Moles/Vol] 103 mmol/L Normal 98-[address] [facility] Comment on above: Performed By: #### CMP, HSTROPN, BNP ### # [facility] [address] [address] [address] Travis Anthony CO2 [Moles/Vol] 24.5 mmol/L Normal 21.0-32.0 [facility] Comment on above: Performed By: #### CMP, HSTROPN, BNP ### # [facility] [address] [address] [address] Travis Anthony Creatinine [Mass/Vol] 1.01 mg/dL Normal 0.70-1.[address] [facility] Comment on above: Performed By: #### CMP, HSTROPN, BNP ### # [facility] [address] [address] [address] Travis Anthony EGFR-AF GUYANESE >60 Normal >=60 [facility] Comment on above: Performed By: #### CMP, HSTROPN, BNP ### # [facility] [address] [place] [address] Dr. Travis Anthony EGFR-NON AF GUYANESE >60 Normal >=[address] [facility] Comment on above: Performed By: #### CMP, HSTROPN, BNP ### # [facility] [address] [address] [address] Travis Anthony Globulin (S) [Mass/Vol] 3.8 g/dL Normal [facility] Comment on above: Performed By: #### CMP, HSTROPN, BNP ### # [facility] [address] [address] [address] Travis Anthony Glucose [Mass/Vol] 152 mg/dL Critically high 74-[address] [facility] Comment on above: Performed By: #### CMP, HSTROPN, BNP ### # [facility] [address] [address] [address] Travis Anthony Potassium [Moles/Vol] 4.3 mmol/L Normal 3.5-5.[address] [facility] Comment on above: Performed By: #### CMP, HSTROPN, BNP ### # [facility] [address] [address] [address] Travis Anthony Protein [Mass/Vol] 7.5 g/dL Normal 6.4-8.[address] [facility] Comment on above: Performed By: #### CMP, HSTROPN, BNP ### # [facility] [address] [place] [address] Dr. Travis Anthony Sodium [Moles/Vol] 140 mmol/L Normal 136-145 [facility] Comment on above: Performed By: #### CMP, HSTROPN, BNP ### # [facility] [address] [place] [address] Dr. Travis Anthony Urea nitrogen [Mass/Vol] 8.0 mg/dL Normal 7.0-18.0 [facility] Comment on above: Performed By: #### CMP, HSTROPN, BNP ### # [facility] [address] [place] [address] Dr. Travis Anthony Urea nitrogen/Creati nine [Mass ratio] 7.9 mg/mg Normal [facility] Comment on above: Performed By: #### CMP, HSTROPN, BNP ### # [facility] [address] [place] [address] Dr. Travis Anthony PROTIMEon 05-30-2022 INR Coag (PPP) [Relative time] 1.03 {INR} Normal [facility] Comment on above: Performed By: #### PT, PTT #### [facility] [address] [place] [address] Dr. Travis Anthony INR GUIDELINES SEE BELOW Normal [facility] Comment on above: Result Comment: DESIRED INR: 2.0 - 3.0 C ONDITIONS NOT LISTED BELOW 2.5 - 3.5 FOR PROSTHETIC HEART VALVE REPLACEMENT 2.5 - 3.5 RECURRENT THROMBOSIS Performed By: #### P T, PTT #### [facility] [address] [place] [address] Dr. Travis Anthony PT Coag (PPP) [Time] 10.9 s Normal 9.0-11.6 [facility] Comment on above: Performed By: #### PT, PTT #### [facility] [address] [place] [address] Dr. Travis Anthony PTTon 05-30-2022 aPTT Coag (Bld) [Time] 27.5 s Normal 22.3-36.2 [facility] Comment on above: Performed By: #### PT, PTT #### [facility] [address] [place], [place] [address] Dr. Travis Anthony TROPONIN, HIGH SENSITIVITYon 05-30-2022 HSTROP 45.9 pg/mL Normal 4.0-76.1 [facility] Comment on above: Result Comment: CUT-OFF POINTS HAVE BEEN ESTABLISHED BASED ON THE FOURTH UNIVERSAL DEFINITIONS OF MYOCARDIAL INFARCTION. THE UPPER REFERENCE LIMIT (URL) OF TROPONIN, DEFINED THE 99TH PERCENTILE OF cTnI DISTRIBUTION IN A REFERENCE POPULATION, HAS BEEN CONFIRMED THE DECISION THRESHOLD FOR ND DIAGNOSIS. Performed By: #### H STROPN #### [facility] [address] [place], [place] [address] Dr. Travis Anthony HSTROP 47.0 pg/mL Normal 4.0-76.1 [facility] Comment on above: Result Comment: CUT-OFF POINTS HAVE BEEN ESTABLISHED BASED ON THE FOURTH UNIVERSAL DEFINITIONS OF MYOCARDIAL INFARCTION. THE UPPER REFERENCE LIMIT (URL) OF TROPONIN, DEFINED THE 99TH PERCENTILE OF cTnI DISTRIBUTION IN A REFERENCE POPULATION, HAS BEEN CONFIRMED THE DECISION THRESHOLD FOR ND DIAGNOSIS. Performed By: #### C MP, HSTROPN, BNP #### [facility] [address] [place], [place] [address] Dr. Travis Anthony TSHon 05-30-2022 TSH 2.324 uIU/mL Normal 0.358-3.74 0 [facility] Comment on above: Performed By: #### TSH #### [facility] [address] [address] [address] Travis Anthony XR CHEST 1 Von 05-30-2022 XR CHEST 1 V EXAM: Chest x-ray HISTORY: . SHORTNESS OF BREATH . COMPARISON: None. TECHNIQUE: Single view of the chest FINDINGS: Heart and vascularity are unremarkable. Lungs are free of focal infiltrates. There is an old healed rib fracture involving the left fifth rib posterior laterally. EKG leads overlie the chest. IMPRESSION: No acute heart or lung disease identified. Electronically authenticated by: CRISTAL HINKLE Date: 2022-05-30 11:32 Normal [facility] Coding Summaryon 12-16-2017 Coding Summary CODING DATE: 018 [facility] STATUS: Home PAYOR: Self Pay ADMIT DX: REASON FOR VISIT DX: Z48.02 Encounter for removal of sutures FINAL DX: PRINCIPAL: Z48.02 Encounter for removal of sutures SECONDARY: L03.115 Cellulitis of right lower limb S81.811D Laceration without foreign body, right lower leg, subsequent encounter PROCEDURES DOCTOR NAME DATE NOTE: The code number assigned matches the documented diagnosis and / or procedure in the patient's chart. However, the narrative phrase printed from the coding software may appear abbreviated, or result in slightly different terminology. Coded By: Kina Spicer Date Saved: 12/16/2017 01:51 pm [facility] Coding Summary CODING DATE: 018 [facility] STATUS: Home PAYOR: Self Pay APC DESCRIPTION 5021 Level 1 Type A ED Visits ADMIT DX: REASON FOR VISIT DX: Z48.02 Encounter for removal of sutures FINAL DX: PRINCIPAL: Z48.02 Encounter for removal of sutures SECONDARY: L03.115 Cellulitis of right lower limb S81.811D Laceration without foreign body, right lower leg, subsequent encounter PYMT PROC APC STAT DESCRIPTION DOCTOR NAME DATE NOTE: The code number assigned matches the documented diagnosis and / or procedure in the patient's chart. However, the narrative phrase printed from the coding software may appear abbreviated, or result in slightly different terminology. Coded By: Kina Spicer Date Saved: 12/16/2017 01:50 pm [facility] Coding Summary CODING DATE: 018 [facility] STATUS: Home PAYOR: Self Pay ADMIT DX: REASON FOR VISIT DX: Z48.02 Encounter for removal of sutures FINAL DX: PRINCIPAL: Z48.02 Encounter for removal of sutures SECONDARY: L03.115 Cellulitis of right lower limb PROCEDURES DOCTOR NAME DATE NOTE: The code number assigned matches the documented diagnosis and / or procedure in the patient's chart. However, the narrative phrase printed from the coding software may appear abbreviated, or result in slightly different terminology. Coded By: Kina Spicer Date Saved: 12/16/2017 01:48 pm [facility] Coding Summaryon 12-02-2017 Coding Summary CODING DATE: [facility] STATUS: Home PAYOR: Self Pay ADMIT DX: REASON FOR VISIT DX: S81.811A Laceration without foreign body, right lower leg, initial encounter FINAL DX: PRINCIPAL: S81.811A Laceration without foreign body, right lower leg, initial encounter SECONDARY: PROCEDURES DOCTOR NAME DATE NOTE: The code number assigned matches the documented diagnosis and / or procedure in the patient's chart. However, the narrative phrase printed from the coding software may appear abbreviated, or result in slightly different terminology. Coded By: Melissa Bar Date Saved: 12/02/2017 07:30 am [facility] Coding Summary CODING DATE: 018 [facility] STATUS: Home PAYOR: Self Pay ADMIT DX: REASON FOR VISIT DX: S81.811A Laceration without foreign body, right lower leg, initial encounter FINAL DX: PRINCIPAL: S81.811A Laceration without foreign body, right lower leg, initial encounter SECONDARY: W26.8XXA Contact with other sharp object(s), not elsewhere classified, initial encounter PROCEDURES DOCTOR NAME DATE NOTE: The code number assigned matches the documented diagnosis and / or procedure in the patient's chart. However, the narrative phrase printed from the coding software may appear abbreviated, or result in slightly different terminology. Coded By: Melissa Bar Date Saved: 12/02/2017 07:28 am [facility] ED Clinical Summaryon 2017 ED Clinical Summary [facility] - Emergency [address] [place] [id number] ed Clinical SummaryPERSON INFORMATIONName: PATRICE KANG Age: 52 Years Sex: MALEDOB: [birth year] MRN: Acct#:Visit Reason: RIGHT LEG STITCHES REMOVAL Arrival: 11/27/17 17:55:00 Discharge: 11/27/17 18:16:00LOS: 000 00:21 Check In: 11/27/17 17:55:00 Checkout:11/27/17 18:16:00Address:[address] [facility] [id number]: Provider, NonePROVIDER INFORMATIONProvider Role Assigned UnassignedMESFIN STOKES ED PA 11/27/17 17:57:31Kermit Emery RN ED Nurse 11/27/17 17:58:29VITALS INFORMATIONVital Sign Triage LatestTemperature TympanicTemperature Temporal ArteryPulse Rate 73 bpm 73 bpmO2 Sat 100 % 100 %Respiratory Rate 18 br/min 18 br/minBlood Pressure 145 mmHg/92 mmHg 145 mmHg/92 mmHgMEDICAL INFORMATIONMedications Given:Allergy Information:No Known Medication AllergiesPHYSICIAN DOCUMENTATIONPatient: PATRICE KANG : 52 years Sex: MALE : [birth year]Associated Diagnoses: Visit for suture removal; CellulitisAuthor: MARZENA CUBA, MESFIN HBasic InformationTime seen: Date & time 11/27/17 17:58:00.History source: Patient.Arrival mode: Private vehicle, walking.History of Present [id number] male presents to emergency department with complaint of needing sutures removed. Indicates he had a laceration to the posterior aspect of his right lower extremity approximately 2 weeks ago. He states he had 12 sutures placed. Told to return for suture removal. Patient denies any issues with healing. Does state there is a small amount of redness around the healing laceration. Denies any other problems at this time.Review of SystemsConstitutional symptoms: No fever,Skin symptoms: Healing laceration.Eye symptoms: Vision unchanged.Respiratory symptoms: No shortness of breath,Cardiovascular symptoms: No chest pain,Gastrointestinal symptoms: No abdominal pain, no nausea, no vomiting.Musculoskeletal symptoms: No back pain, no Muscle pain.Neurologic symptoms: No headache,Health StatusAllergies:Allergic Reactions (Selected)No Known Medication Allergies.Past Medical/ Family/ Social HistoryMedical history:No active or resolved past medical history items have been selected or recorded..Social history:Social & Psychosocial HabitsNo Data Available.Physical ExaminationCONST: -Well-developed well-nourished. -Acute distress: No -Vitals: reviewed.SKIN: -Gross abnormalities: Healing laceration on the right lower extremity posterior aspect of the calf, small amount of erythema around the healing laceration, sutures are in place at this time. No red streaking up the leg appreciated, estrogen area is mildly warm to touchNECK: -Supple ([id number]): non-tender.CARD: -Rate and rhythm: Regular -Edema: No -Calf pain: NoRESP: -Respiratory effort and chest excursion with respirations: Normal -Breath sounds equal bilaterally: Clear -Wheezes: No -Rales: NoBACK: -Signs of pain with movement: NoEXT: Gross appearance and use of all four extremities: Unremarkable - Family without any issues, full range of motion right and left ankles, capillary refill less than 2 seconds right lower extremityNEURO: -Patient: alert -Gross CN or Focal Neuro deficits: No -Oriented to: person, place and time. -Appearance and judgment: appropriate.Medical Decision [id number]-hke male presents to emergency department with complaint of needing sutures removed. Sutures removed by me in the emergency department. I educated patient care of this area and watching for further signs of infection. I indicated to the patient does have small amount of redness around this area and I would treat him with Keflex for the next few days and recommended using probiotics with taking antibiotic. Indications follow-up primary care provider or urgent care as needed. Continue to this area clean with soap and water daily and watch for any red streaking or fevers or purulent material coming from the wound. Patient indicated he understood and was in agreement. Patient is stable, sutures removed, laceration appears to be healing well and will be dischargedImpression and PlanDiagnosisVisit for suture removal ([id number] Z48.02, Discharge, Medical)Cellulitis ([id number] L03.90, Discharge, Medical)PlanCondition: Stable.Disposition: Discharged: Time 11/27/17 18:10:00, to home.Prescriptions: Launch prescriptionsPharmacy:Keflex 500 mg oral capsule (Prescribe): 500 mg, 1 cap(s), PO, q8hr, 15 cap(s), 0 Refill(s).Patient was given the following educational materials: Suture Removal, Care After, Incision Care, Adult.Limitations: Limited activity, Limited work, No heavy lifting.Follow up with: Follow-up urgent care or primary care provider Within 3 to 5 days Follow-up urgent care or primary care provider for reevaluation as needed. Continue to keep this area clean with soap and water daily and watch for signs of infection. Return immediately for any signs of infection such as redness spreading around the area, pus coming from the wound, or any other problems.Continue Keflex for the next few days. Use probiotics while taking antibiotics and continue these a week after done with antibiotics.; None Provider Within 3 to 5 days.Counseled: Patient, Regarding diagnosis, Regarding treatment plan, Patient indicated understanding of instructions.DISCHARGE INFORMATION:Discharge Disposition: HomeDischarge Location: HomePATIENT EDUCATION INFORMATIONInstructions: Incision Care, Adult; Suture Removal, Care AfterFollow-Up:With: Address: When:None Provider Within 3 to 5 daysWith: Address: When:Follow-up urgent care or primary care provider Within 3 to 5 daysComments:Follow-up urgent care or primary care provider for reevaluation as needed. Continue to keep this area clean with soap and water daily and watch for signs of infection. Return immediately for any signs of infection such as redness spreading around the area, pus coming from the wound, or any other problems.Continue Keflex for the next few days. Use probiotics while taking antibiotics and continue these a week after done with antibiotics.DIAGNOSIS:Cellulitis; Visit for suture removalPatient Understands: Yes - Patient/family/caregiver verbalizes understanding of instructions givenComment: [facility] ED Note - Physicianon 2017 ED Note - Physician Patient: PATRICE KANG : 52 years Sex: MALE : [birth year]Associated Diagnoses: Visit for suture removal; CellulitisAuthor: MESFIN STOKES InformationTime seen: Date & time 11/27/17 17:58:00.History source: Patient.Arrival mode: Private vehicle, walking.History of Present [id number]-bsfk-bnt male presents to emergency department with complaint of needing sutures removed. Indicates he had a laceration to the posterior aspect of his right lower extremity approximately 2 weeks ago. He states he had 12 sutures placed. Told to return for suture removal. Patient denies any issues with healing. Does state there is a small amount of redness around the healing laceration. Denies any other problems at this time.Review of SystemsConstitutional symptoms: No fever,Skin symptoms: Healing laceration.Eye symptoms: Vision unchanged.Respiratory symptoms: No shortness of breath,Cardiovascular symptoms: No chest pain,Gastrointestinal symptoms: No abdominal pain, no nausea, no vomiting.Musculoskeletal symptoms: No back pain, no Muscle pain.Neurologic symptoms: No headache,Health StatusAllergies:Allergic Reactions (Selected)No Known Medication Allergies.Past Medical/ Family/ Social HistoryMedical history:No active or resolved past medical history items have been selected or recorded..Social history:Social & Psychosocial HabitsNo Data Available.Physical ExaminationCONST: -Well-developed well-nourished. -Acute distress: No -Vitals: reviewed.SKIN: -Gross abnormalities: Healing laceration on the right lower extremity posterior aspect of the calf, small amount of erythema around the healing laceration, sutures are in place at this time. No red streaking up the leg appreciated, estrogen area is mildly warm to touchNECK: -Supple (qmkk-ie-bbvci): non-tender.CARD: -Rate and rhythm: Regular -Edema: No -Calf pain: NoRESP: -Respiratory effort and chest excursion with respirations: Normal -Breath sounds equal bilaterally: Clear -Wheezes: No -Rales: NoBACK: -Signs of pain with movement: NoEXT: Gross appearance and use of all four extremities: Unremarkable - Family without any issues, full range of motion right and left ankles, capillary refill less than 2 seconds right lower extremityNEURO: -Patient: alert -Gross CN or Focal Neuro deficits: No -Oriented to: person, place and time. -Appearance and judgment: appropriate.Medical Decision [id number]-nyqw-fuk male presents to emergency department with complaint of needing sutures removed. Sutures removed by me in the emergency department. I educated patient care of this area and watching for further signs of infection. I indicated to the patient does have small amount of redness around this area and I would treat him with Keflex for the next few days and recommended using probiotics with taking antibiotic. Indications follow-up primary care provider or urgent care as needed. Continue to this area clean with soap and water daily and watch for any red streaking or fevers or purulent material coming from the wound. Patient indicated he understood and was in agreement. Patient is stable, sutures removed, laceration appears to be healing well and will be dischargedImpression and PlanDiagnosisVisit for suture removal ([id number] Z48.02, Discharge, Medical)Cellulitis ([id number] L03.90, Discharge, Medical)PlanCondition: Stable.Disposition: Discharged: Time 11/27/17 18:10:00, to home.Prescriptions: Launch prescriptionsPharmacy:Keflex 500 mg oral capsule (Prescribe): 500 mg, 1 cap(s), PO, q8hr, 15 cap(s), 0 Refill(s).Patient was given the following educational materials: Suture Removal, Care After, Incision Care, Adult.Limitations: Limited activity, Limited work, No heavy lifting.Follow up with: Follow-up urgent care or primary care provider Within 3 to 5 days Follow-up urgent care or primary care provider for reevaluation as needed. Continue to keep this area clean with soap and water daily and watch for signs of infection. Return immediately for any signs of infection such as redness spreading around the area, pus coming from the wound, or any other problems.Continue Keflex for the next few days. Use probiotics while taking antibiotics and continue these a week after done with antibiotics.; None Provider Within 3 to 5 days.Counseled: Patient, Regarding diagnosis, Regarding treatment plan, Patient indicated understanding of instructions.[Electronically Signed on: 11/27/2017 18:16 EDT] MESFIN STOKES[Verified on: 11/27/2017 18:16 EDT] MESFIN STOKES [facility] ED Patient Education Noteon 11-27-2017 ED Patient Education Note Education MaterialsDermatologyIncision Care, AdultAn incision is a surgical cut that is made through your skin. Most incisions are closed after surgery. Your incision may be closed with stitches (sutures), sarah, skin glue, or adhesive strips. You may need to return to your health care provider to have sutures or sarah removed. This may occur several days to several weeks after your surgery. The incision needs to be cared for properly to prevent infection.How to care for your incisionIncision care ? Follow instructions from your health care provider about how to take care of your incision. Make sure you:? Wash your hands with soap and water before you change the bandage (dressing). If soap and water are not available, use hand recruiting internship.? Change your dressing as told by your health care provider.? Leave sutures, skin glue, or adhesive strips in place. These skin closures may need to stay in place for 2 weeks or longer. If adhesive strip edges start to loosen and curl up, you may trim the loose edges. Do not remove adhesive strips completely unless your health care provider tells you to do that.? Check your incision area every day for signs of infection. Check for:? More redness, swelling, or pain.? More fluid or blood.? Warmth.? Pus or a bad smell.? Ask your health care provider how to clean the incision. This may include:? Using mild soap and water.? Using a clean towel to pat the incision dry after cleaning it.? Applying a cream or ointment. Do this only as told by your health care provider.? Covering the incision with a clean dressing.? Ask your health care provider when you can leave the incision uncovered.? Do not take baths, swim, or use a hot tub until your health care provider approves. Ask your health care provider if you can take showers. You may only be allowed to take sponge baths for bathing.Medicines? If you were prescribed an antibiotic medicine, cream, or ointment, take or apply the antibiotic as told by your health care provider. Do not stop taking or applying the antibiotic even if your condition improves.? Take cnre-vdy-jagzlnf and prescription medicines only as told by your health care provider.General instructions? Limit movement around your incision to improve healing.? Avoid straining, lifting, or exercise for the first month, or for as long as told by your health care provider.? Follow instructions from your health care provider about returning to your normal activities.? Ask your health care provider what activities are safe.? Protect your incision from the sun when you are outside for the first 6 months, or for as long as told by your health care provider. Apply sunscreen around the scar or cover it up.? Keep all follow-up visits as told by your health care provider. This is important.Contact a health care provider if:? Your have more redness, swelling, or pain around the incision.? You have more fluid or blood coming from the incision.? Your incision feels warm to the touch.? You have pus or a bad smell coming from the incision.? You have a fever or shaking chills.? You are nauseous or you vomit.? You are dizzy.? Your sutures or sarah come undone.Get help right away if:? You have a red streak coming from your incision.? Your incision bleeds through the dressing and the bleeding does not stop with gentle pressure.? The edges of your incision open up and separate.? You have severe pain.? You have a rash.? You are confused.? You faint.? You have trouble breathing and a fast heartbeat.This information is not intended to replace advice given to you by your health care provider. Make sure you discuss any questions you have with your health care provider.Document Released: 11/01/2005 Document Revised: 12/20/2016 Document Reviewed: 10/30/2016Jonathon Interactive Patient Education ? 2018 [employer].Suture Removal, Care AfterRefer to this sheet in the next few weeks. These instructions provide you with information on caring for yourself after your procedure. Your health care provider may also give you more specific instructions. Your treatment has been planned according to current medical practices, but problems sometimes occur. Call your health care provider if you have any problems or questions after your procedure.What can I expect after the procedure?After your stitches (sutures) are removed, it is typical to have the following:? Some discomfort and swelling in the wound area.? Slight redness in the area.Follow these instructions at home:? If you have skin adhesive strips over the wound area, do not take the strips off. They will fall off on their own in a few days. If the strips remain in place after 14 days, you may remove them.? Change any bandages (dressings) at least once a day or as directed by your health care provider. If the bandage sticks, soak it off with warm, soapy water.? Apply cream or ointment only as directed by your health care provider. If using cream or ointment, wash the area with soap and water 2 times a day to remove all the cream or ointment. Rinse off the soap and pat the area dry with a clean towel.? Keep the wound area dry and clean. If the bandage becomes wet or dirty, or if it develops a bad smell, change it as soon as possible.? Continue to protect the wound from injury.? Use sunscreen when out in the sun. New scars become sunburned easily.Contact a health care provider if:? You have increasing redness, swelling, or pain in the wound.? You see pus coming from the wound.? You have a fever.? You notice a bad smell coming from the wound or dressing.? Your wound breaks open (edges not staying together).This information is not intended to replace advice given to you by your health care provider. Make sure you discuss any questions you have with your health care provider.Document Released: 01/07/2002 Document Revised: 09/19/2016 Document Reviewed: 11/24/2013Lelaevmarychuy Interactive Patient Education ? 2016 [employer]. Normal [facility] ED Patient Summaryon 018 ED Patient Summary [facility] - Emergency [address] [place] [address] pATIENT DISCHARGE INSTRUCTIONSPatient InformationName: PATRICE KANG Age: 52 YearsDate of : [birth year]MRN: [id number] For Visit: RIGHT LEG STITCHES REMOVALArrival Time: 11/27/17 17:55:00Phone: Primary Care Physician: Provider, NoneAttending Physician: Nitin Grant MDComment:Visit Diagnosis:Diagnoses This Visit Cellulitis (L03.90) Visit for suture removal (Z48.02)If you received any narcotics, sedation, or any other medication that causes drowsiness for the next 24 hours, unless otherwise directed:? Do not drive a car.? Do not operate machinery such as power tools, lawn mowers, drills, sewing machines, or stoves? Avoid alcoholic beverages and drugs for allergies, nerves, or sleep? Do not make important personal or business decisions or sign any legal documentsWith: Address: When:None Provider Within 3 to 5 daysWith: Address: When:Follow-up urgent care or primary care provider Within 3 to 5 daysComments:Follow-up urgent care or primary care provider for reevaluation as needed. Continue to keep this area clean with soap and water daily and watch for signs of infection. Return immediately for any signs of infection such as redness spreading around the area, pus coming from the wound, or any other problems.Continue Keflex for the next few days. Use probiotics while taking antibiotics and continue these a week after done with antibiotics.Medication Information:The exam and treatment you received today in the [facility] Emergency Department were for an urgent problem and are not intended as complete care. It is important for you to follow up with a doctor, nurse practitioner, or physician?s benefits assistant for ongoing care. If your symptoms become worse or you do not improve as expected and you are unable to reach your usual health care provider, you should return to the Emergency Department, we are available 24 hours a day.For those patients who have received Radiology results, the interpretation of your X-ray as given to you by our Emergency Department physician is only a preliminary report. The Radiologist will review your films and if there is a change in the diagnosis you will be notified by phone. Please make sure you have provided a working phone number so we can reach you if necessary.In the event that you had a lab culture while you were a patient in the Emergency Department, you will be notified by phone if there is a need to change your antibiotic. Please make sure you have provided a working phone number so we can reach you if necessary.[facility] Emergency Department has provided you with a complete list of medications post discharge. Please inform your ruby on rails web developer/provider of your visit and for further instruction on these medications. Any specific questions regarding your chronic medications and dosages should be discussed with your primary care physician(s) and/or pharmacist. New MedicationsPrinted Prescriptionscephalexin (Keflex 500 mg oral capsule) 1 cap Oral Every 8 hours. Refills: 0.Visit InformationAllergies:Substance Reaction Symptoms Type CommentsNo Known Medication Allergies DrugVital Signs: Vitals and Measurements this Visit (last charted value for your 11/27/2017 visit) Vital Signs This Visit Temperature Oral: 37.1 DegC Peripheral Pulse Rate: 73 bpm Respiratory Rate: 18 br/min Systolic Blood Pressure: 145 mmHg Diastolic Blood Pressure: 92 mmHg SpO2: 100 % Measurements This Visit Height/Length Dosin.000 cm Height/Length Estimated: 170.000 cm Weight Dosin.000 kg Weight Estimated: 75.000 kgProblems List:Problem Onset CommentsNo Problems foundPatient EducationIncBeebe Medical Center, [facility] incision is a surgical cut that is made through your skin. Most incisions are closed after surgery. Your incision may be closed with stitches (sutures), sarah, skin glue, or adhesive strips. You may need to return to your health care provider to have sutures or sarah removed. This may occur several days to several weeks after your surgery. The incision needs to be cared for properly to prevent infection.How to care for your incisionIncision care ? Follow instructions from your health care provider about how to take care of your incision. Make sure you:? Wash your hands with soap and water before you change the bandage (dressing). If soap and water are not available, use hand recruiting internship.? Change your dressing as told by your health care provider.? Leave sutures, skin glue, or adhesive strips in place. These skin closures may need to stay in place for 2 weeks or longer. If adhesive strip edges start to loosen and curl up, you may trim the loose edges. Do not remove adhesive strips completely unless your health care provider tells you to do that.? Check your incision area every day for signs of infection. Check for:? More redness, swelling, or pain.? More fluid or blood.? Warmth.? Pus or a bad smell.? Ask your health care provider how to clean the incision. This may include:? Using mild soap and water.? Using a clean towel to pat the incision dry after cleaning it.? Applying a cream or ointment. Do this only as told by your health care provider.? Covering the incision with a clean dressing.? Ask your health care provider when you can leave the incision uncovered.? Do not take baths, swim, or use a hot tub until your health care provider approves. Ask your health care provider if you can take showers. You may only be allowed to take sponge baths for bathing.Medicines? If you were prescribed an antibiotic medicine, cream, or ointment, take or apply the antibiotic as told by your health care provider. Do not stop taking or applying the antibiotic even if your condition improves.? Take gthl-dwj-mkyaaon and prescription medicines only as told by your health care provider.General instructions? Limit movement around your incision to improve healing.? Avoid straining, lifting, or exercise for the first month, or for as long as told by your health care provider.? Follow instructions from your health care provider about returning to your normal activities.? Ask your health care provider what activities are safe.? Protect your incision from the sun when you are outside for the first 6 months, or for as long as told by your health care provider. Apply sunscreen around the scar or cover it up.? Keep all follow-up visits as told by your health care provider. This is important.Contact a health care provider if:? Your have more redness, swelling, or pain around the incision.? You have more fluid or blood coming from the incision.? Your incision feels warm to the touch.? You have pus or a bad smell coming from the incision.? You have a fever or shaking chills.? You are nauseous or you vomit.? You are dizzy.? Your sutures or sarah come undone.Get help right away if:? You have a red streak coming from your incision.? Your incision bleeds through the dressing and the bleeding does not stop with gentle pressure.? The edges of your incision open up and separate.? You have severe pain.? You have a rash.? You are confused.? You faint.? You have trouble breathing and a fast heartbeat.This information is not intended to replace advice given to you by your health care provider. Make sure you discuss any questions you have with your health care provider.Document Released: 11/01/2005 Document Revised: 12/20/2016 Document Reviewed: 10/30/2016Jonathon Interactive Patient Education ? 2018 [employer].Suture Removal, Care AfterRefer to this sheet in the next few weeks. These instructions provide you with information on caring for yourself after your procedure. Your health care provider may also give you more specific instructions. Your treatment has been planned according to current medical practices, but problems sometimes occur. Call your health care provider if you have any problems or questions after your procedure.What can I expect after the procedure?After your stitches (sutures) are removed, it is typical to have the following:? Some discomfort and swelling in the wound area.? Slight redness in the area.Follow these instructions at home:? If you have skin adhesive strips over the wound area, do not take the strips off. They will fall off on their own in a few days. If the strips remain in place after 14 days, you may remove them.? Change any bandages (dressings) at least once a day or as directed by your health care provider. If the bandage sticks, soak it off with warm, soapy water.? Apply cream or ointment only as directed by your health care provider. If using cream or ointment, wash the area with soap and water 2 times a day to remove all the cream or ointment. Rinse off the soap and pat the area dry with a clean towel.? Keep the wound area dry and clean. If the bandage becomes wet or dirty, or if it develops a bad smell, change it as soon as possible.? Continue to protect the wound from injury.? Use sunscreen when out in the sun. New scars become sunburned easily.Contact a health care provider if:? You have increasing redness, swelling, or pain in the wound.? You see pus coming from the wound.? You have a fever.? You notice a bad smell coming from the wound or dressing.? Your wound breaks open (edges not staying together).This information is not intended to replace advice given to you by your health care provider. Make sure you discuss any questions you have with your health care provider.Document Released: 01/07/2002 Document Revised: 09/19/2016 Document Reviewed: 11/24/2013Elsevier Interactive Patient Education ? 2017 [employer]. Viruses or BacteriaWhat?s got you sick?Antibiotics only treat bacterial infections. Viral illnesses cannot be treated with antibiotics. When an antibiotic is not prescribed, ask your healthcare professional for tips on how to relieve symptoms and feel better. Usual CauseIllnessVirusesBacteria Antibiotic NeededCold/Runny Nose NOBronchitis/Chest Cold (in otherwise healthy children and adults) NOWhooping Cough YesFlu NOStrep Throat YesSore Throat (except strep) NOFluid in the middle ear (otitis media with effusion) NOUrinary Tract Infection YesAntibiotics Aren?t Always the Answerwww.cdc.gov/getsmart GET SMART Know When Antibiotics [place] Department of Health and Human ServicesCenters for Disease Control and Prevention December 2013 Normal [facility] ED Clinical Summaryon 2017 ED Clinical Summary [facility] - Emergency [address] [place] [id number] ED Clinical SummaryPERSON INFORMATIONName: PATRICE KANG Age: 52 Years Sex: MALEDOB: [birth year] MRN: Acct#:Visit Reason: Leg laceration; C/O RIGHT LEG LACERATION Arrival: 11/13/17 14:03:00 Discharge: 11/13/17 15:43:00LOS: 000 01:40 Check In: 11/13/17 14:03:00 Checkout:11/13/17 15:43:00Address:[address] [facility] [address]QXR: Provider, NonePROVIDER INFORMATIONProvider Role Assigned UnassignedRaul Corral PA-C ED PA 11/13/17 14:04:34Elina Turner RN ED Nurse 11/13/17 14:07:36VITALS INFORMATIONVital Sign Triage LatestTemperature TympanicTemperature Temporal ArteryPulse Rate 86 bpm 86 bpmO2 Sat 100 % 100 %Respiratory Rate 16 br/min 16 br/minBlood Pressure 166 mmHg/107 mmHg 166 mmHg/107 mmHgMEDICAL INFORMATIONMedications Given:Allergy Information:No Known Medication AllergiesPHYSICIAN DOCUMENTATIONPatient: PATRICE KANG : 52 years Sex: MALE : [birth year]Associated Diagnoses: Leg lacerationAuthor: Raul Corral PA-C InformationTime seen: Date & time 11/13/17 14:04:00.History source: Patient.Arrival mode: Private vehicle.History limitation: None.History of Present [id number]-vyfj-pyq male presented to the emergency department today with chief complaint right lower extremity laceration. Patient stated he was at a friend's house when he caught the back of the right lower extremity on the corner of a piece of metal that was sticking out. He states he was still able to walk following injury in controlled bleeding by applying pressure and pain tape around the right lower extremity. He stated his discomfort was a 4 out of 10 on the pain scale throbbing in nature. He denies any numbness tingling weakness of the right lower extremity or right foot. He denies any other lacerations abrasions lesions. He denies any fall head injury or loss of consciousness. Patient has no known medication allergies he does not currently take any medications. Patient has no other concerns at this time.Review of SystemsConstitutional symptoms: No fever, no chills, no sweats, no weakness, no fatigue.Skin symptoms: Laceration right lower leg., No rash,Eye symptoms: Vision unchanged.Respiratory symptoms: No shortness of breath,Cardiovascular symptoms: No chest pain, no palpitations.Gastrointestinal symptoms: No abdominal pain,Genitourinary symptomsMusculoskeletal symptoms: Right lower leg laceration., no back pain, no Muscle pain, no Joint pain.Neurologic symptoms: No headache, no dizziness, no altered level of consciousness, no numbness, no tingling, no weakness. Additional review of systems information: All other systems reviewed and otherwise negative.Health StatusAllergies:Allergic Reactions (Selected)No Known Medication Allergies.Medications: (Selected)Inpatient MedicationsOrderedbacitracin topical: 500 unit(s), 1 jameson, TOP, OnceCompletedamoxicillin: 1,000 mg, 2 cap(s), PO, OncePrescriptionsCompletedNaprosyn 500 mg oral tablet: 500 mg, 1 tab(s), PO, BID, PRN: for pain, 20 tab(s), 0 Refill(s)amoxicillin 500 mg oral capsule: 1,000 mg, 2 cap(s), PO, BID, 40 cap(s), 0 Refill(s).Immunizations: Tetanus up to date.Past Medical/ Family/ Social HistoryMedical history: Negative.Surgical history: Negative.Social history:Social & Psychosocial HabitsNo Data Available.Physical ExaminationGeneral: Alert, no acute distress.Skin: Warm, dry, no pallor, no rash, 8 cm laceration to the right lower extremity posterior lateral. This is beneath the knee and just above the ankle. Bleeding controlled. Does include subcutaneous tissue. No tendon or venous involvement. No surrounding redness or concern for infection. No foreign bodies..Head: Normocephalic, atraumatic.Neck: Supple.Eye: Pupils are equal, round and reactive to light, extraocular movements are intact, normal conjunctiva.Ears, nose, mouth and throat: Oral mucosa moist.Cardiovascular: Regular rate and rhythm, No murmur, Normal peripheral perfusion, No edema.Respiratory: Lungs are clear to auscultation, respirations are non-labored, breath sounds are equal, Symmetrical chest wall expansion, Lung sounds clear bilaterally. No wheezing rhonchi or crackles on exam..Musculoskeletal: Normal ROM, normal strength, no swelling, no deformity, Patient has normal range of motion of all 4 extremities. He has good flexion-extension at the left and right feet. He is able to move all toes of the right foot. No tendon or venous involvement. There is an 8 cm laceration to the posterior lateral aspect of the right lower extremity above the ankle and below the knee. The bleeding was controlled this does include subcutaneous tissue there were no foreign bodies noted in the wound. It is about a 1-1/2 cm deep. Plantarflexion dorsal flexion are intact. Brisk capillary refill bilaterally. Strong pedal pulses bilaterally. No pedal edema no lower extremity edema. No focal deficits. No obvious deformities or crepitus. Patient is neurovascularly intact..Neurological: Alert and oriented to person, place, time, and situation, No focal neurological deficit observed, normal sensory observed, normal motor observed, normal speech observed, normal coordination observed, Normal sensory, motor, speech, coordination is observed on exam..Lymphatics: No lymphadenopathy.Psychiatric: Cooperative, appropriate mood & affect, normal judgment.Medical Decision MakingOrders Launch OrdersPatient Care:Wound Care Routine (Order): 11/13/17 15:23 EDT, wound dressingPharmacy:bacitracin topical (Order): 1 jameson, TOP, Once.ProcedureLaceration repairTime: 11/13/17 14:59:00 .Confirmed: Patient, procedure, side, and site correct.Consent: Patient.Description/ repairLaceration 8 cm in length.Right lower extremity, posterior lateral lower leg. .Shape: linear.Depth: subcutaneous.Details: clean.Neurovascular/ tendon exam: intact.Anesthesia: 12 ml, 1% lidocaine.Preparation: sterile field established, cleansed with betasept and normal saline.Irrigation: moderate, with saline, with 300 ml.Debridement: none, Wound exploration.Skin closure: # 12 sutures, with 4 -0 Nylon, simple technique, interrupted technique.Complexity: single layer.Post procedure exam: Circulation, motor, sensory examination intact.Complications: None.Patient tolerated: Well.Performed by: Self.Total time: 25 minutes.Impression and PlanDiagnosisLeg laceration ([id number] S81.819A, Discharge, Medical)PlanCondition: Stable.Disposition: Discharged: Time 11/13/17 15:26:00, to home.Patient was given the following educational materials: Stitches, Ahmeek, or Adhesive Wound Closure, Stitches, Ahmeek, or Adhesive Wound Closure.Follow up with: ; Follow up with primary care provider Within 3 to 5 days Please follow up with primary care provider, our urgent care, or back here in the emergency department in 7-10 days for suture removal. You were seen here today for right leg lacertion. Your tetanus is up to date, so you did not require one of these today. Your wound was cleansed thouroughly and #12 sutures were placed to close the wound. You should continue to use antibiotic ointment on this area. You may shower, but do not soak the sutures. You should return here to the emergency department for any worsening or concerning symptoms. .Counseled: Patient, Regarding diagnosis, Regarding treatment plan, Patient indicated understanding of instructions.Notes: 52-year-old male presented to the emergency department today with chief complaint of right lower extremity laceration. Patient states he was at his friend's house this afternoon when he will was backing up and not looking any caught the back of the right lower leg on the corner of a metal piece that was sticking out. Patient states he applied pressure right away and wrapped the lower extremity due to bleeding. This controlled bleeding. He denied any weakness of the stapling of the lower extremity. He did state some tenderness around the room which is a 4 out of 10 on the pain scale throbbing in nature. Patient had a centimeter laceration to the right lower extremity nevus posterior lateral in nature above the ankle. Patient had good plantar and dorsal flexion is not appear any tendon or venous involvement. Patient is able move all toes of the right foot. He had strong pedal pulses bilaterally. No pedal edema no lower extremity edema. Brisk capillary refill bilaterally. Patient was neurovascularly intact on exam. The ascending laceration was approximately 1-1/2 cm in depth. This did include a lot of subcutaneous tissue. Patient's wound was prepped and draped in a sterile fashion cleansed with Betasept soap and normal saline. 300 cc of normal saline irrigation was used to clean this thoroughly and observe for any foreign bodies. No foreign bodies noted. Patient tolerated this very well. 12 cc of 1% lidocaine was used for local anesthesia. Patient tolerated this well. #12 0 nylon sutures were placed for close approximation of this patient's laceration. Patient tolerated procedure well. Patient understands to follow-up here in the emergency department with our urgent care or primary care provider in 7-10 days for suture removal. In a back ointment was placed on the wound. Patient's tetanus was updated 1 year ago so he did not require one today. Patient will take Tylenol or ibuprofen as needed for discomfort. He understands to return here to the emergency department if he notices any redness, pus-type drainage, red streaking or any concerns for infection. Patient agrees and understands the plan of care..DISCHARGE INFORMATION:Discharge Disposition: HomeDischarge Location: HomePATIENT EDUCATION INFORMATIONInstructions: Stitches, Sarah, or Adhesive Wound ClosureFollow-Up:With: Address: When:Follow up with primary care provider Within 3 to 5 daysComments:Please follow up with primary care provider, our urgent care, or back here in the emergency department in 7-10 days for suture removal. You were seen here today for right leg lacertion. Your tetanus is up to date, so you did not require one of these today. Your wound was cleansed thouroughly and #12 sutures were placed to close the wound. You should continue to use antibiotic ointment on this area. You may shower, but do not soak the sutures. You should return here to the emergency department for any worsening or concerning symptoms.DIAGNOSIS:Leg lacerationPatient Understands: Yes - Patient/family/caregiver verbalizes understanding of instructions givenComment: [facility] ED Note - [facility]on 2017 ED Note - Physician Patient: PATRICE KANG : 52 years Sex: MALE : [birth year]Associated Diagnoses: NoneAuthor: Devyn Reyes MDAddendumTeaching-Supervisory Addendum-BriefI participated in the following activities of this patients care: the medical history, the physical exam, medical decision making.I personally performed: supervision of the patient's care, the medical history, the physical exam, the medical decision making.The case was discussed with: the physician benefits assistant.Evaluation and management service: I agree with the evaluation and management decisions made in this patient's care.Results interpretation: I agree with the study interpretation in this patient's care, I agree with the documentation of the study interpretation.Seen with BEREKET. Supervised laceration repair..[Electronically Signed on: 11/13/2017 16:22 EDT] Devyn Reyes MD[Verified on: 11/13/2017 16:22 EDT] Devyn Reyes MD [facility] ED Note - Physician Patient: PATRICE KANG : 52 years Sex: MALE : 67Associated Diagnoses: Leg lacerationAuthor: Ellis MONTGOMERY, Rual Parker InformationTime seen: Date & time 11/13/17 14:04:00.History source: Patient.Arrival mode: Private vehicle.History limitation: None.History of Present [id number] male presented to the emergency department today with chief complaint right lower extremity laceration. Patient stated he was at a friend's house when he caught the back of the right lower extremity on the corner of a piece of metal that was sticking out. He states he was still able to walk following injury in controlled bleeding by applying pressure and pain tape around the right lower extremity. He stated his discomfort was a 4 out of 10 on the pain scale throbbing in nature. He denies any numbness tingling weakness of the right lower extremity or right foot. He denies any other lacerations abrasions lesions. He denies any fall head injury or loss of consciousness. Patient has no known medication allergies he does not currently take any medications. Patient has no other concerns at this time.Review of SystemsConstitutional symptoms: No fever, no chills, no sweats, no weakness, no fatigue.Skin symptoms: Laceration right lower leg., No rash,Eye symptoms: Vision unchanged.Respiratory symptoms: No shortness of breath,Cardiovascular symptoms: No chest pain, no palpitations.Gastrointestinal symptoms: No abdominal pain,Genitourinary symptomsMusculoskeletal symptoms: Right lower leg laceration., no back pain, no Muscle pain, no Joint pain.Neurologic symptoms: No headache, no dizziness, no altered level of consciousness, no numbness, no tingling, no weakness. Additional review of systems information: All other systems reviewed and otherwise negative.Health StatusAllergies:Allergic Reactions (Selected)No Known Medication Allergies.Medications: (Selected)Inpatient MedicationsOrderedbacitracin topical: 500 unit(s), 1 jameson, TOP, OnceCompletedamoxicillin: 1,000 mg, 2 cap(s), PO, OncePrescriptionsCompletedNaprosyn 500 mg oral tablet: 500 mg, 1 tab(s), PO, BID, PRN: for pain, 20 tab(s), 0 Refill(s)amoxicillin 500 mg oral capsule: 1,000 mg, 2 cap(s), PO, BID, 40 cap(s), 0 Refill(s).Immunizations: Tetanus up to date.Past Medical/ Family/ Social HistoryMedical history: Negative.Surgical history: Negative.Social history:Social & Psychosocial HabitsNo Data Available.Physical ExaminationGeneral: Alert, no acute distress.Skin: Warm, dry, no pallor, no rash, 8 cm laceration to the right lower extremity posterior lateral. This is beneath the knee and just above the ankle. Bleeding controlled. Does include subcutaneous tissue. No tendon or venous involvement. No surrounding redness or concern for infection. No foreign bodies..Head: Normocephalic, atraumatic.Neck: Supple.Eye: Pupils are equal, round and reactive to light, extraocular movements are intact, normal conjunctiva.Ears, nose, mouth and throat: Oral mucosa moist.Cardiovascular: Regular rate and rhythm, No murmur, Normal peripheral perfusion, No edema.Respiratory: Lungs are clear to auscultation, respirations are non-labored, breath sounds are equal, Symmetrical chest wall expansion, Lung sounds clear bilaterally. No wheezing rhonchi or crackles on exam..Musculoskeletal: Normal ROM, normal strength, no swelling, no deformity, Patient has normal range of motion of all 4 extremities. He has good flexion-extension at the left and right feet. He is able to move all toes of the right foot. No tendon or venous involvement. There is an 8 cm laceration to the posterior lateral aspect of the right lower extremity above the ankle and below the knee. The bleeding was controlled this does include subcutaneous tissue there were no foreign bodies noted in the wound. It is about a 1-1/2 cm deep. Plantarflexion dorsal flexion are intact. Brisk capillary refill bilaterally. Strong pedal pulses bilaterally. No pedal edema no lower extremity edema. No focal deficits. No obvious deformities or crepitus. Patient is neurovascularly intact..Neurological: Alert and oriented to person, place, time, and situation, No focal neurological deficit observed, normal sensory observed, normal motor observed, normal speech observed, normal coordination observed, Normal sensory, motor, speech, coordination is observed on exam..Lymphatics: No lymphadenopathy.Psychiatric: Cooperative, appropriate mood & affect, normal judgment.Medical Decision MakingOrders Launch OrdersPatient Care:Wound Care Routine (Order): 11/13/17 15:23 EDT, wound dressingPharmacy:bacitracin topical (Order): 1 jameson, TOP, Once.ProcedureLaceration repairTime: 11/13/17 14:59:00 .Confirmed: Patient, procedure, side, and site correct.Consent: Patient.Description/ repairLaceration 8 cm in length.Right lower extremity, posterior lateral lower leg. .Shape: linear.Depth: subcutaneous.Details: clean.Neurovascular/ tendon exam: intact.Anesthesia: 12 ml, 1% lidocaine.Preparation: sterile field established, cleansed with betasept and normal saline.Irrigation: moderate, with saline, with 300 ml.Debridement: none, Wound exploration.Skin closure: # 12 sutures, with 4 -0 Nylon, simple technique, interrupted technique.Complexity: single layer.Post procedure exam: Circulation, motor, sensory examination intact.Complications: None.Patient tolerated: Well.Performed by: Self.Total time: 25 minutes.Impression and PlanDiagnosisLeg laceration ([id number] S81.819A, Discharge, Medical)PlanCondition: Stable.Disposition: Discharged: Time 11/13/17 15:26:00, to home.Patient was given the following educational materials: Stitches, Sarah, or Adhesive Wound Closure, Stitches, Ahmeek, or Adhesive Wound Closure.Follow up with: ; Follow up with primary care provider Within 3 to 5 days Please follow up with primary care provider, our urgent care, or back here in the emergency department in 7-10 days for suture removal. You were seen here today for right leg lacertion. Your tetanus is up to date, so you did not require one of these today. Your wound was cleansed thouroughly and #12 sutures were placed to close the wound. You should continue to use antibiotic ointment on this area. You may shower, but do not soak the sutures. You should return here to the emergency department for any worsening or concerning symptoms. .Counseled: Patient, Regarding diagnosis, Regarding treatment plan, Patient indicated understanding of instructions.Notes: 52-year-old male presented to the emergency department today with chief complaint of right lower extremity laceration. Patient states he was at his friend's house this afternoon when he will was backing up and not looking any caught the back of the right lower leg on the corner of a metal piece that was sticking out. Patient states he applied pressure right away and wrapped the lower extremity due to bleeding. This controlled bleeding. He denied any weakness of the stapling of the lower extremity. He did state some tenderness around the room which is a 4 out of 10 on the pain scale throbbing in nature. Patient had a centimeter laceration to the right lower extremity nevus posterior lateral in nature above the ankle. Patient had good plantar and dorsal flexion is not appear any tendon or venous involvement. Patient is able move all toes of the right foot. He had strong pedal pulses bilaterally. No pedal edema no lower extremity edema. Brisk capillary refill bilaterally. Patient was neurovascularly intact on exam. The ascending laceration was approximately 1-1/2 cm in depth. This did include a lot of subcutaneous tissue. Patient's wound was prepped and draped in a sterile fashion cleansed with Betasept soap and normal saline. 300 cc of normal saline irrigation was used to clean this thoroughly and observe for any foreign bodies. No foreign bodies noted. Patient tolerated this very well. 12 cc of 1% lidocaine was used for local anesthesia. Patient tolerated this well. #12 0 nylon sutures were placed for close approximation of this patient's laceration. Patient tolerated procedure well. Patient understands to follow-up here in the emergency department with our urgent care or primary care provider in 7-10 days for suture removal. In a back ointment was placed on the wound. Patient's tetanus was updated 1 year ago so he did not require one today. Patient will take Tylenol or ibuprofen as needed for discomfort. He understands to return here to the emergency department if he notices any redness, pus-type drainage, red streaking or any concerns for infection. Patient agrees and understands the plan of care..[Electronically Signed on: 11/13/2017 15:36 EDT] Raul Corral PA-C[Verified on: 11/13/2017 15:36 EDT] Raul Corral PA-C [facility] ED Patient Education Noteon 11-13-2017 ED Patient Education Note Education MaterialsDermatologyStitches, Sarah, or Adhesive Wound ClosureHealth care providers use stitches (sutures), sarah, and certain glue (skin adhesives) to hold skin together while it heals (wound closure). You may need this treatment after you have surgery or if you cut your skin accidentally. These methods help your skin to heal more quickly and make it less likely that you will have a scar. A wound may take several months to heal completely.The type of wound you have determines when your wound gets closed. In most cases, the wound is closed as soon as possible (primary skin closure). Sometimes, closure is delayed so the wound can be cleaned and allowed to heal naturally. This reduces the chance of infection. Delayed closure may be needed if your wound:? Is caused by a bite.? Happened more than 6 hours ago.? Involves loss of skin or the tissues under the skin.? Has dirt or debris in it that cannot be removed.? Is infected.What are the different kinds of wound closures?There are many options for wound closure. The one that your health care provider uses depends on how deep and how large your wound is.Adhesive GlueTo use this type of glue to close a wound, your health care provider holds the edges of the wound together and paints the glue on the surface of your skin. You may need more than one layer of glue. Then the wound may be covered with a light bandage (dressing).This type of skin closure may be used for small wounds that are not deep (superficial). Using glue for wound closure is less painful than other methods. It does not require a medicine that numbs the area (local anesthetic). This method also leaves nothing to be removed. Adhesive glue is often used for children and on facial wounds.Adhesive glue cannot be used for wounds that are deep, uneven, or bleeding. It is not used inside of a wound.Adhesive StripsThese strips are made of sticky (adhesive), porous paper. They are applied across your skin edges like a regular adhesive bandage. You leave them on until they fall off.Adhesive strips may be used to close very superficial wounds. They may also be used along with sutures to improve the closure of your skin edges.SuturesSutures are the oldest method of wound closure. Sutures can be made from natural substances, such as silk, or from synthetic materials, such as nylon and steel. They can be made from a material that your body can break down as your wound heals (absorbable), or they can be made from a material that needs to be removed from your skin (nonabsorbable). They come in many different strengths and sizes.Your health care provider attaches the sutures to a steel needle on one end. Sutures can be passed through your skin, or through the tissues beneath your skin. Then they are tied and cut. Your skin edges may be closed in one continuous stitch or in separate stitches.Sutures are strong and can be used for all kinds of wounds. Absorbable sutures may be used to close tissues under the skin. The disadvantage of sutures is that they may cause skin reactions that lead to infection. Nonabsorbable sutures need to be removed.StaplesWhen surgical sarah are used to close a wound, the edges of your skin on both sides of the wound are brought close together. A staple is placed across the wound, and an instrument secures the edges together. Sarah are often used to close surgical cuts (incisions).Sarah are faster to use than sutures, and they cause less skin reaction. Sarah need to be removed using a tool that bends the sarah away from your skin.How do I care for my wound closure?? Take medicines only as directed by your health care provider.? If you were prescribed an antibiotic medicine for your wound, finish it all even if you start to feel better.? Use ointments or creams only as directed by your health care provider.? Wash your hands with soap and water before and after touching your wound.? Do not soak your wound in water. Do not take baths, swim, or use a hot tub until your health care provider approves.? Ask your health care provider when you can start showering. Cover your wound if directed by your health care provider.? Do not take out your own sutures or sarah.? Do not pick at your wound. Picking can cause an infection.? Keep all follow-up visits as directed by your health care provider. This is important.How long will I have my wound closure?? Leave adhesive glue on your skin until the glue peels away.? Leave adhesive strips on your skin until the strips fall off.? Absorbable sutures will dissolve within several days.? Nonabsorbable sutures and sarah must be removed. The location of the wound will determine how long they stay in. This can range from several days to a couple of weeks.When should I seek help for my wound closure?Contact your health care provider if:? You have a fever.? You have chills.? You have drainage, redness, swelling, or pain at your wound.? There is a bad smell coming from your wound.? The skin edges of your wound start to separate after your sutures have been removed.? Your wound becomes thick, raised, and darker in color after your sutures come out (scarring).This information is not intended to replace advice given to you by your health care provider. Make sure you discuss any questions you have with your health care provider.Document Released: 01/07/2002 Document Revised: 12/11/2016 Document Reviewed: 09/21/2014[employer] Patient Education ? 2018 [employer]. Normal [facility] ED Patient Summaryon 11-13-2 018 ED Patient Summary [facility] - Emergency [address] [place] [id number] pATIENT DISCHARGE INSTRUCTIONSPatient InformationName: PATRICE KANG Age: 52 YearsDate of : [birth year]MRN: [id number] For Visit: Leg laceration; C/O RIGHT LEG LACERATIONArrival Time: 11/13/17 14:03:00Phone: Primary Care Physician: Provider, NoneAttending Physician: Devyn Reyes MDComment:Visit Diagnosis:Diagnoses This Visit Leg laceration ([id number]) Leg laceration (S81.819A)If you received any narcotics, sedation, or any other medication that causes drowsiness for the next 24 hours, unless otherwise directed:? Do not drive a car.? Do not operate machinery such as power tools, lawn mowers, drills, sewing machines, or stoves? Avoid alcoholic beverages and drugs for allergies, nerves, or sleep? Do not make important personal or business decisions or sign any legal documentsWith: Address: When:Follow up with primary care provider Within 3 to 5 daysComments:Please follow up with primary care provider, our urgent care, or back here in the emergency department in 7-10 days for suture removal. You were seen here today for right leg lacertion. Your tetanus is up to date, so you did not require one of these today. Your wound was cleansed thouroughly and #12 sutures were placed to close the wound. You should continue to use antibiotic ointment on this area. You may shower, but do not soak the sutures. You should return here to the emergency department for any worsening or concerning symptoms.Medication Information:The exam and treatment you received today in the [facility] Emergency Department were for an urgent problem and are not intended as complete care. It is important for you to follow up with a doctor, nurse practitioner, or physician?s benefits assistant for ongoing care. If your symptoms become worse or you do not improve as expected and you are unable to reach your usual health care provider, you should return to the Emergency Department, we are available 24 hours a day.For those patients who have received Radiology results, the interpretation of your X-ray as given to you by our Emergency Department physician is only a preliminary report. The Radiologist will review your films and if there is a change in the diagnosis you will be notified by phone. Please make sure you have provided a working phone number so we can reach you if necessary.In the event that you had a lab culture while you were a patient in the Emergency Department, you will be notified by phone if there is a need to change your antibiotic. Please make sure you have provided a working phone number so we can reach you if necessary.[facility] Emergency Department has provided you with a complete list of medications post discharge. Please inform your ruby on rails web developer/provider of your visit and for further instruction on these medications. Any specific questions regarding your chronic medications and dosages should be discussed with your primary care physician(s) and/or pharmacist.Visit InformationAllergies:Substance Reaction Symptoms Type CommentsNo Known Medication Allergies DrugVital Signs: Vitals and Measurements this Visit (last charted value for your 11/13/2017 visit) Vital Signs This Visit Temperature Oral: 36.7 DegC Peripheral Pulse Rate: 86 bpm Respiratory Rate: 16 br/min Systolic Blood Pressure: 166 mmHg Diastolic Blood Pressure: 107 mmHg SpO2: 100 % Oxygen Therapy: Room air Measurements This Visit Height/Length Dosin.000 cm Height/Length Estimated: 170.000 cm Weight Dosin.000 kg Weight Estimated: 75.000 kgProblems List:Problem Onset CommentsNo Problems foundPatient EducationStitches, Sarah, or Adhesive Wound ClosureHealth care providers use stitches (sutures), sarah, and certain glue (skin adhesives) to hold skin together while it heals (wound closure). You may need this treatment after you have surgery or if you cut your skin accidentally. These methods help your skin to heal more quickly and make it less likely that you will have a scar. A wound may take several months to heal completely.The type of wound you have determines when your wound gets closed. In most cases, the wound is closed as soon as possible (primary skin closure). Sometimes, closure is delayed so the wound can be cleaned and allowed to heal naturally. This reduces the chance of infection. Delayed closure may be needed if your wound:? Is caused by a bite.? Happened more than 6 hours ago.? Involves loss of skin or the tissues under the skin.? Has dirt or debris in it that cannot be removed.? Is infected.What are the different kinds of wound closures?There are many options for wound closure. The one that your health care provider uses depends on how deep and how large your wound is.Adhesive GlueTo use this type of glue to close a wound, your health care provider holds the edges of the wound together and paints the glue on the surface of your skin. You may need more than one layer of glue. Then the wound may be covered with a light bandage (dressing).This type of skin closure may be used for small wounds that are not deep (superficial). Using glue for wound closure is less painful than other methods. It does not require a medicine that numbs the area (local anesthetic). This method also leaves nothing to be removed. Adhesive glue is often used for children and on facial wounds.Adhesive glue cannot be used for wounds that are deep, uneven, or bleeding. It is not used inside of a wound.Adhesive StripsThese strips are made of sticky (adhesive), porous paper. They are applied across your skin edges like a regular adhesive bandage. You leave them on until they fall off.Adhesive strips may be used to close very superficial wounds. They may also be used along with sutures to improve the closure of your skin edges.SuturesSutures are the oldest method of wound closure. Sutures can be made from natural substances, such as silk, or from synthetic materials, such as nylon and steel. They can be made from a material that your body can break down as your wound heals (absorbable), or they can be made from a material that needs to be removed from your skin (nonabsorbable). They come in many different strengths and sizes.Your health care provider attaches the sutures to a steel needle on one end. Sutures can be passed through your skin, or through the tissues beneath your skin. Then they are tied and cut. Your skin edges may be closed in one continuous stitch or in separate stitches.Sutures are strong and can be used for all kinds of wounds. Absorbable sutures may be used to close tissues under the skin. The disadvantage of sutures is that they may cause skin reactions that lead to infection. Nonabsorbable sutures need to be removed.StaplesWhen surgical sarah are used to close a wound, the edges of your skin on both sides of the wound are brought close together. A staple is placed across the wound, and an instrument secures the edges together. Ahmeek are often used to close surgical cuts (incisions).Ahmeek are faster to use than sutures, and they cause less skin reaction. Sarah need to be removed using a tool that bends the sarah away from your skin.How do I care for my wound closure?? Take medicines only as directed by your health care provider.? If you were prescribed an antibiotic medicine for your wound, finish it all even if you start to feel better.? Use ointments or creams only as directed by your health care provider.? Wash your hands with soap and water before and after touching your wound.? Do not soak your wound in water. Do not take baths, swim, or use a hot tub until your health care provider approves.? Ask your health care provider when you can start showering. Cover your wound if directed by your health care provider.? Do not take out your own sutures or sarah.? Do not pick at your wound. Picking can cause an infection.? Keep all follow-up visits as directed by your health care provider. This is important.How long will I have my wound closure?? Leave adhesive glue on your skin until the glue peels away.? Leave adhesive strips on your skin until the strips fall off.? Absorbable sutures will dissolve within several days.? Nonabsorbable sutures and sarah must be removed. The location of the wound will determine how long they stay in. This can range from several days to a couple of weeks.When should I seek help for my wound closure?Contact your health care provider if:? You have a fever.? You have chills.? You have drainage, redness, swelling, or pain at your wound.? There is a bad smell coming from your wound.? The skin edges of your wound start to separate after your sutures have been removed.? Your wound becomes thick, raised, and darker in color after your sutures come out (scarring).This information is not intended to replace advice given to you by your health care provider. Make sure you discuss any questions you have with your health care provider.Document Released: 01/07/2002 Document Revised: 12/11/2016 Document Reviewed: 09/21/2014[employer] Patient Education ? 2018 [employer] Viruses or BacteriaWhat?s got you sick?Antibiotics only treat bacterial infections. Viral illnesses cannot be treated with antibiotics. When an antibiotic is not prescribed, ask your healthcare professional for tips on how to relieve symptoms and feel better. Usual CauseIllnessVirusesBacteria Antibiotic NeededCold/Runny Nose NOBronchitis/Chest Cold (in otherwise healthy children and adults) NOWhooping Cough YesFlu NOStrep Throat YesSore Throat (except strep) NOFluid in the middle ear (otitis media with effusion) NOUrinary Tract Infection YesAntibiotics Aren?t Always the Answerwww.cdc.gov/getsmart GET SMART Know When Antibiotics [place] Department of Health and Human ServicesRiverside Methodist Hospitalers for Disease Control and Prevention December 2013 [facility] Coding Summaryon 03-03-2017 Coding Summary CODING DATE: 017 [facility] STATUS: Home PAYOR: Self Pay APC DESCRIPTION 5023 Level 3 Type A ED Visits ADMIT DX: REASON FOR VISIT DX: S01.81XA Laceration without foreign body of other part of head, initial encounter F10.129 Alcohol abuse with intoxication, unspecified FINAL DX: PRINCIPAL: S01.81XA Laceration without foreign body of other part of head, initial encounter SECONDARY: F10.129 Alcohol abuse with intoxication, unspecified W07.XXXA Fall from chair, initial encounter PYMT PROC APC STAT DESCRIPTION DOCTOR NAME DATE NOTE: The code number assigned matches the documented diagnosis and / or procedure in the patient's chart. However, the narrative phrase printed from the coding software may appear abbreviated, or result in slightly different terminology. Revised Coded By: Robert Spicer' Revised Date Saved: 12/12/2016 01:07 pm [facility] Coding Summary CODING DATE: 017 [facility] STATUS: Home PAYOR: Self Pay APC DESCRIPTION 5022 Level 2 Type A ED Visits ADMIT DX: REASON FOR VISIT DX: S01.81XA Laceration without foreign body of other part of head, initial encounter F10.129 Alcohol abuse with intoxication, unspecified FINAL DX: PRINCIPAL: S01.81XA Laceration without foreign body of other part of head, initial encounter SECONDARY: F10.129 Alcohol abuse with intoxication, unspecified W07.XXXA Fall from chair, initial encounter PYMT PROC APC STAT DESCRIPTION DOCTOR NAME DATE NOTE: The code number assigned matches the documented diagnosis and / or procedure in the patient's chart. However, the narrative phrase printed from the coding software may appear abbreviated, or result in slightly different terminology. Revised Coded By: Kina Spicer Revised Date Saved: 12/12/2016 01:05 pm [facility] Coding Summaryon 02-20-2017 Coding Summary CODING DATE: 017 [facility] STATUS: Home PAYOR: Self Pay APC DESCRIPTION 5023 Level 3 Type A ED Visits ADMIT DX: REASON FOR VISIT DX: R51 Headache R22.0 Localized swelling, mass and lump, head FINAL DX: PRINCIPAL: K02.9 Dental caries, unspecified SECONDARY: K08.9 Disorder of teeth and supporting structures, unspecified G89.29 Other chronic pain PYMT PROC APC STAT DESCRIPTION DOCTOR NAME DATE NOTE: The code number assigned matches the documented diagnosis and / or procedure in the patient's chart. However, the narrative phrase printed from the coding software may appear abbreviated, or result in slightly different terminology. Revised Coded By: Melissa Bar Revised Date Saved: 10/23/2016 11:37 am [facility] Coding Summary CODING DATE: 017 [facility] STATUS: Home PAYOR: Self Pay APC DESCRIPTION 5023 Level 3 Type A ED Visits ADMIT DX: REASON FOR VISIT DX: R51 Headache R22.0 Localized swelling, mass and lump, head FINAL DX: PRINCIPAL: K02.9 Dental caries, unspecified SECONDARY: K08.9 Disorder of teeth and supporting structures, unspecified G89.29 Other chronic pain PYMT PROC APC STAT DESCRIPTION DOCTOR NAME DATE NOTE: The code number assigned matches the documented diagnosis and / or procedure in the patient's chart. However, the narrative phrase printed from the coding software may appear abbreviated, or result in slightly different terminology. Revised Coded By: Melissa Bar Revised Date Saved: 10/23/2016 11:35 am [facility] Encounters Encounter Date Encounter Type Care Provider Facility Start: 04-01-2023 End: 04-01-2023 ambulatory [facility] Start: 11-08-2022 End: 11-08-2022 ambulatory [facility] Start: 09-24-2022 End: 09-24-2022 ambulatory [facility] Start: 09-11-[address] DOCTOR CHIN Facility :[facility] Start: 07-02-2022 End: 07-02-2022 ambulatory ALIRIOMELO JEFFERSONAGUILA [facility] Start: 06-12-2022 End: 06-13-[address] NONE LISTED REQUEST Facility:[facility] Start: 06-11-2022 End: 06-12-[address] NONE LISTED REQUEST Facility:[facility] Start: 06-06-2022 Evaluation and management of inpatient DAVID [facility] Start: 06-04-2022 Evaluation and management of inpatient DAVID [facility] Start: 06-04-2022 [facility] Start: 06-03-2022 [facility] Start: 05-31-2022 End: 06-06-2022 Evaluation and management of inpatient [facility] Start: 05-30-2022 End: 05-31-2022 Evaluation and management of inpatient DR NONE LISTED REQUEST Facility: Start: 11-28-2017 End: 12-15-2017 Patient encounter None Provider Facility:[facility] Start: 11-27-2017 End: 12-15-2017 Emergency department patient visit None Provider Facility:[facility] Start: 11-14-2017 End: 11-14-2017 Patient encounter Devyn Reyes Facility:[facility] Start: 11-13-2017 End: 11-13-2017 Emergency department patient visit None Provider Facility:[facility] Payers Date Payer Category Payer Medicaid [id number] 2017 Self-pay 1965 Unknown [id number] 1965 Unknown [id number] .16.84 [id number] 1966 Unknown [id number] .16.84 [id number] 1966 Unknown [id number] .16.84 [id number] 1959 Unknown [id number] Clinical Notes 05-31-2022 to 04-01-2023 Note Date & Type Note Facility 04-01-2023 Note [facility] Consult Note Reason for visit: A-fib, nonischemic cardiomyopathy HPI: Patrice Kang is a 57 y.o. year old with past medical history of nonischemic cardiomyopathy, A-fib RVR, htn, history of smoking and drinking. he recently presented to [facility] with complaints of shortness of breath and was transferred to [email or web address] where he had heart catheterization done which showed mild calcifications and disease in the mid LAD and no angiographic disease elsewhere, mild elevated left filling and right filling pressures, mild pulmonary hypertension, controlled systemic hypertension. He was started on GDMT and amiodarone as well as Eliquis 5 mg twice daily. he was cardioverted successfully into sinus rhythm while inpatient. He had his follow-up echo done 09/11/2022 which showed EF 30 to 35%, grade 3 diastolic dysfunction, biatrial mild dilatation, RV mild dilatation, mild to moderate mitral regurg, mild tricuspid regurg, normal right-sided pressures. MUGA scan showed EF 54% and so ICD was deferred. He is still on amiodarone for afib Sleep test done nad has to be interpreted. He denies chest pain, SOB, lightheadedness, and bleeding on Eliquis. Doing very well from cardiac standpoint he says. He continues to smoke heavily. PMH: Past Medical History: Diagnosis Date A-fib ([facility]) CHF (congestive heart failure) ([facility]) Coronary artery disease Heart failure ([facility]) Smoker PSH: Past Surgical History: Procedure Laterality Date APPENDECTOMY CARDIAC CATHETERIZATION CARDIOVERSION SH: Social Determinants of Health Tobacco Use: High Risk (11/08/2022) Patient History Smoking Tobacco Use: Every Day Smokeless Tobacco Use: Former Passive Exposure: Not on file Alcohol Use: Not on file Financial Resource Strain: Unknown (05/31/2022) Overall Financial Resource Strain (CARDIA) Difficulty of Paying Living Expenses: Patient refused Food Insecurity: Unknown (05/31/2022) Hunger Vital Sign Worried About Running Out of Food in the Last Year: Patient refused Ran Out of Food in the Last Year: Not on file Transportation Needs: Unknown (05/31/2022) PRAPARE - Transportation Lack of Transportation (Medical): Patient refused Lack of Transportation (Non-Medical): Not on file Physical Activity: Not on file Stress: Not on file Social Connections: Not on file Intimate Partner Violence: Unknown (05/31/2022) Humiliation, Afraid, Rape, and Kick questionnaire Fear of Current or Ex-Partner: Patient refused Emotionally Abused: Not on file Physically Abused: Not on file Sexually Abused: Not on file Depression: Not on file Housing Stability: Unknown (05/31/2022) Housing Stability Vital Sign Unable to Pay for Housing in the Last Year: Not on file Number of Places Lived in the Last Year: Not on file Unstable Housing in the Last Year: Patient refused Allergies: No Known Allergies Weight: 70.8kg Visit Vitals BP 115/74 (BP Location: Left arm, Patient Position: Sitting) Pulse 66 Ht 1.702 m (5' 7 ) Wt 70.8 kg (156 lb) SpO2 96% BMI 24.43 kg/m??? Smoking Status Every Day BSA 1.83 m??? Meds: Current Outpatient Medications on File Prior to Visit Medication Sig Dispense Refill amiodarone (Pacerone) 200 mg tablet Take 1 tablet (200 mg) by mouth in the morning. 90 tablet 3 apixaban (Eliquis) 5 mg tablet Take 1 tablet (5 mg) by mouth in the morning and at bedtime. 180 tablet 3 aspirin 81 mg chewable tablet Chew 1 tablet (81 mg) with breakfast. 90 tablet 3 atorvastatin (Lipitor) 40 mg tablet Take 1 tablet (40 mg) by mouth at bedtime. 90 tablet 3 carvedilol (Coreg) 3.125 mg tablet Take 1 tablet (3.125 mg) by mouth with breakfast and with evening meal. 180 tablet 3 dapagliflozin (Farxiga) 10 mg Take 1 tablet (10 mg) by mouth in the morning. 90 tablet 3 folic acid (Folvite) 1 mg tablet Take 1 tablet (1 mg) by mouth in the morning. 30 tablet 11 sacubitriL-valsartan (Entresto) 24-26 mg tablet Take 1 tablet by mouth in the morning and at bedtime. 180 tablet 3 amiodarone (Pacerone) 400 mg tablet Take 1 tablet (400 mg) by mouth with breakfast for 7 days. 7 tablet 0 No current facility-administered medications on file prior to visit. ROS: Review of Systems Musculoskeletal: Positive for arthritis and joint pain. All other systems reviewed and are negative. Physical Exam: Constitutional General Appearance: well-nourished, well-developed, appears stated age Level of Distress: comfortable Psychiatric Mental Status: alert, normal affect Orientation: oriented to time, place, and person Insight: good judgement Eyes Lids and Conjunctivae: non-injected, no xanthelasma ENMT Ears: no lesions on external ear Nose: no lesions on external nose Oropharynx: no cyanosis, no pallor Neck Neck: supple, trachea midline Carotid Arteries: bilateral normal upstroke, no bruits Jugular Veins: normal jugular venous pressure Thyroid: not enlarged Lungs Resp (more content not included)... [facility] 11-08-2022 Note [facility] Consult Note Reason for visit: A-fib, nonischemic cardiomyopathy, ICD evaluation Update 11/08/22: patient had MUGA to evaluate EF, showed EF 54% so patient will not require ICD He is still on amiodarone for afib Otherwise denies CP, SOB, ALONZO, LE edema, orthopnea, palpitations, lightheadedness/dizziness 09/24/22 HPI: Patrice Kang is a 57 y.o. year old with past medical history of nonischemic cardiomyopathy, A-fib RVR, htn, history of smoking and drinking. he recently presented to [facility] with complaints of shortness of breath and was transferred to [email or web address] where he had heart catheterization done which showed mild calcifications and disease in the mid LAD and no angiographic disease elsewhere, mild elevated left filling and right filling pressures, mild pulmonary hypertension, controlled systemic hypertension. he was started on GDMT and amiodarone as well as Eliquis 5 mg twice daily. he was cardioverted successfully into sinus rhythm while inpatient. he had his follow-up echo done 09/11/2022 which showed EF 30 to 35%, grade 3 diastolic dysfunction, biatrial mild dilatation, RV mild dilatation, mild to moderate mitral regurg, mild tricuspid regurg, normal right-sided pressures he continues to have reduced EF I discussed with patient because of the variability with the echo ranging 30 to 35% he will likely need an ICD but we can obtain a MUGA scan to definitively assess whether ICD is necessary he is compensated today and denies chest pain, shortness of breath, LE edema, orthopnea, lightheadedness, dizziness. -- HPI: Discharge Summary 06/06/2022 Patrice Kang is an 56 y.o. male with no known significant past medical history, history of smoking and EtOH use, presents to the hospital today as a direct transfer from outside facility, [facility]. Patient initially presented at their facility with increased exertional dyspnea associated with midsternal chest pain without any radiation. Denies any nausea or sweating. - New-onset heart failure with reduced ejection fraction- diuresis, optimize electrolyte, strict input and output, Daily weight, cardiology following along status post heart cath -Continue GDMT including ASA, Lipitor, Coreg 6.25 mg twice daily, Entresto, Farxiga, Aldactone. -New onset atrial for with RVR currently heart rate controlled- On amiodarone coagulation with Eliquis DC heparin infusion, s/p FRANCISCA cardioversion. Patient left hospital left hospital without waiting for DC paperwork or prescriptions from [facility]. Cardiology team was notified. PMH: Past Medical History: Diagnosis Date A-fib ([facility]) CHF (congestive heart failure) ([facility]) Coronary artery disease Heart failure ([facility]) Smoker PSH: Past Surgical History: Procedure Laterality Date APPENDECTOMY CARDIAC CATHETERIZATION CARDIOVERSION SH: Social Determinants of Health Tobacco Use: High Risk (11/08/2022) Patient History Smoking Tobacco Use: Every Day Smokeless Tobacco Use: Former Passive Exposure: Not on file Alcohol Use: Not on file Financial Resource Strain: Unknown (05/31/2022) Overall Financial Resource Strain (CARDIA) Difficulty of Paying Living Expenses: Patient refused Food Insecurity: Unknown (05/31/2022) Hunger Vital Sign Worried About Running Out of Food in the Last Year: Patient refused Ran Out of Food in the Last Year: Not on file Transportation Needs: Unknown (05/31/2022) PRAPARE - Transportation Lack of Transportation (Medical): Patient refused Lack of Transportation (Non-Medical): Not on file Physical Activity: Not on file Stress: Not on file Social Connections: Not on file Intimate Partner Violence: Unknown (05/31/2022) Humiliation, Afraid, Rape, and Kick questionnaire Fear of Current or Ex-Partner: Patient refused Emotionally Abused: Not on file Physically Abused: Not on file Sexually Abused: Not on file Depression: Not on file Housing Stability: Unknown (05/31/2022) Housing Stability Vital Sign Unable to Pay for Housing in the Last Year: Not on file Number of Places Lived in the Last Year: Not on file Unstable Housing in the Last Year: Patient refused Allergies: No Known Allergies Weight: 67.1kg Visit Vitals BP (!) 141/91 (BP Location: Left arm, Patient Position: Sitting) Pulse 69 Ht 1.702 m (5' 7 ) Wt 67.1 kg (148 lb) SpO2 95% BMI 23.18 kg/m??? Smoking Status Every Day BSA 1.78 m??? Meds: Current Outpatient Medications on File Prior to Visit Medication Sig Dispense Refill amiodarone (Pacerone) 200 mg tablet Take 1 tablet (200 mg) by mouth in the morning. 90 tablet 3 apixaban (Eliquis) 5 mg tablet Take 1 tablet (5 mg) by mouth in the morning and at bedtime. 180 tablet 3 aspirin 81 mg chewable tablet Chew 1 tablet (81 mg) with breakfast. 90 tablet 3 atorvastatin (Lipitor) 40 mg tablet Take 1 tablet (40 mg) by mouth a (more content not included)... [facility] 11-08-2022 Note Patient here for fol low up MUGA scan. Denies chest pain, SOB, and palpitations. Review of Systems Musculoskeletal: Positive for arthritis and joint pain. All other systems reviewed and are negative. [facility] 09-27-2022 Note [facility] 09-26-2022 Note - noted history of a lcohol abuse but patient states he is stopping [facility] 09-26-2022 Note - discussed and advi sed cessation, patient continues to smoke [facility] 09-26-2022 Note - CAD stable, nonobs tructive and mild - continue aspirin 81 mg, Lipitor 40 mg [facility] 09-26-2022 Note - [id number] at le ast 2 for heart failure and hypertension - continue Eliquis 5 mg twice daily, continue amiodarone 200 mg - ECG is sinus rhythm today - bradycardia on previous visit and carvedilol dose was reduced, patient was asymptomatic today heart rate 56 per pulse check regular rate and rhythm - we will proceed with 48-hour Holter monitor just to evaluate for any bradycardia [facility] 09-26-2022 Note - NYHA I, NICM media laron by Tachyarrhythmia - GDMT: Entresto 24-26 mg, Farxiga 10 mg, Coreg 3.125 mg - he was taking Aldactone and has developed nipple pain and sensitivity so we will discontinue - he is compensated today I discussed with him signs to watch for including LE edema, ALONZO, weight gain of 2 to 3 pounds per day and 5 pounds per week; she experiences any of the symptoms he is to follow-up and let us know so we can prescribe diuretic therapy [facility] 09-24-2022 Note [place] Electrophysiology Consult Note Reason for visit: A-fib, nonischemic cardiomyopathy, ICD evaluation HPI: Patrice Kang is a 57 y.o. year old with past medical history of nonischemic cardiomyopathy, A-fib RVR, htn, history of smoking and drinking. he recently presented to [facility] with complaints of shortness of breath and was transferred to [email or web address] where he had heart catheterization done which showed mild calcifications and disease in the mid LAD and no angiographic disease elsewhere, mild elevated left filling and right filling pressures, mild pulmonary hypertension, controlled systemic hypertension. he was started on GDMT and amiodarone as well as Eliquis 5 mg twice daily. he was cardioverted successfully into sinus rhythm while inpatient. he had his follow-up echo done 09/11/2022 which showed EF 30 to 35%, grade 3 diastolic dysfunction, biatrial mild dilatation, RV mild dilatation, mild to moderate mitral regurg, mild tricuspid regurg, normal right-sided pressures he continues to have reduced EF I discussed with patient because of the variability with the echo ranging 30 to 35% he will likely need an ICD but we can obtain a MUGA scan to definitively assess whether ICD is necessary he is compensated today and denies chest pain, shortness of breath, LE edema, orthopnea, lightheadedness, dizziness. -- HPI: Discharge Summary 06/06/2022 Patrice Kang is an 56 y.o. male with no known significant past medical history, history of smoking and EtOH use, presents to the hospital today as a direct transfer from outside facility, [facility]. Patient initially presented at their facility with increased exertional dyspnea associated with midsternal chest pain without any radiation. Denies any nausea or sweating. - New-onset heart failure with reduced ejection fraction- diuresis, optimize electrolyte, strict input and output, Daily weight, cardiology following along status post heart cath -Continue GDMT including ASA, Lipitor, Coreg 6.25 mg twice daily, Entresto, Farxiga, Aldactone. -New onset atrial for with RVR currently heart rate controlled- On amiodarone coagulation with Eliquis DC heparin infusion, s/p FRANCISCA cardioversion. Patient left hospital left hospital without waiting for DC paperwork or prescriptions from [facility]. Cardiology team was notified. PMH: Past Medical History: Diagnosis Date A-fib ([facility]) CHF (congestive heart failure) ([facility]) Coronary artery disease Heart failure ([facility]) Smoker PSH: Past Surgical History: Procedure Laterality Date APPENDECTOMY CARDIAC CATHETERIZATION CARDIOVERSION SH: Social Determinants of Health Tobacco Use: High Risk Smoking Tobacco Use: Every Day Smokeless Tobacco Use: Former Passive Exposure: Not on file Alcohol Use: Not on file Financial Resource Strain: Unknown Difficulty of Paying Living Expenses: Patient refused Food Insecurity: Unknown Worried About Running Out of Food in the Last Year: Patient refused Ran Out of Food in the Last Year: Not on file Transportation Needs: Unknown Lack of Transportation (Medical): Patient refused Lack of Transportation (Non-Medical): Not on file Physical Activity: Not on file Stress: Not on file Social Connections: Not on file Intimate Partner Violence: Unknown Fear of Current or Ex-Partner: Patient refused Emotionally Abused: Not on file Physically Abused: Not on file Sexually Abused: Not on file Depression: Not on file Housing Stability: Unknown Unable to Pay for Housing in the Last Year: Not on file Number of Places Lived in the Last Year: Not on file Unstable Housing in the Last Year: Patient refused Allergies: No Known Allergies Weight: 68.9kg Visit Vitals BP 146/84 (BP Location: Left arm, Patient Position: Sitting) Pulse 56 Ht 1.702 m (5' 7 ) Wt 68.9 kg (152 lb) SpO2 98% BMI 23.81 kg/m??? Smoking Status Every Day BSA 1.8 m??? Meds: Current Outpatient Medications on File Prior to Visit Medication Sig Dispense Refill amiodarone (Pacerone) 200 mg tablet Take 1 tablet (200 mg) by mouth in the morning. Do not start before June 13, 2022. 30 tablet 3 apixaban (Eliquis) 5 mg tablet Take 1 tablet (5 mg) by mouth in the morning and at bedtime. 180 tablet 3 aspirin 81 mg chewable tablet Chew 1 tablet (81 mg) with breakfast. 90 tablet 3 atorvastatin (Lipitor) 40 mg tablet Take 1 tablet (40 mg) by mouth at bedtime. 90 tablet 3 carvedilol (Coreg) 3.125 mg tablet Take 1 tablet (3.125 mg) by mouth with breakfast and with evening meal. 180 tablet 3 dapagliflozin (Farxiga) 10 mg Take 1 tablet (10 mg) by mouth in the morning. 90 tablet 3 folic acid (Folvite) 1 mg tablet Take 1 tablet (1 mg) by mouth in the morning. 30 tablet 11 sacubitriL-valsartan (Entresto) 24-26 mg tablet Take 1 tablet by mouth in the morning and at bedtime. 180 tablet 3 spironola (more content not included)... [facility] 09-24-2022 Note Patient here for 2 m o follow up per Samara Thibodeaux DNP. She decreased his carvedilol to 3.125mg bid at last visit in June 2022 due to bradycardia. He had echo and labs 2 weeks ago. Denies chest pain and SOB. C/o sore nipples. Samara ordered Holter monitor s/p echo. No results back yet. Review of Systems All other systems reviewed and are negative. [facility] 07-02-2022 Note Cardiology Clinic No te Subjective Patrice Kang is a 56 y.o. year old male recently diagnosed with NICM HFrEF 20-25%, atrial fibrillation on Amiodarone and Eliquis s/p DCCV on 06/06/2022, and nicotine dependence seen in follow-up for Afib and HFrEF. He reports he is doing quite well with resolution of ALONZO, PND, and feels less fatigued. He has quit drinking, continues to smoke a ppd. Patient Active Problem List Diagnosis Acute systolic heart failure (CMS/HCC) Atrial fibrillation (CMS/HCC) Family History Problem Relation Name Age of Onset Hypertension Mother Hypertension Father Social History Tobacco Use Smoking status: Every Day Packs/day: 1.00 Types: Cigarettes Smokeless tobacco: Former Substance Use Topics Alcohol use: Not Currently Alcohol/week: 6.0 standard drinks Types: 6 Cans of beer per week Comment: not since [facility] [[email or web address]] discharge in May 2022 Drug use: Yes Types: Marijuana HPI: Discharge Summary 06/06/2022 Patrice Kang is an 56 y.o. male with no known significant past medical history, history of smoking and EtOH use, presents to the hospital today as a direct transfer from outside facility, [facility]. Patient initially presented at their facility with increased exertional dyspnea associated with midsternal chest pain without any radiation. Denies any nausea or sweating. - New-onset heart failure with reduced ejection fraction- diuresis, optimize electrolyte, strict input and output, Daily weight, cardiology following along status post heart cath -Continue GDMT including ASA, Lipitor, Coreg 6.25 mg twice daily, Entresto, Farxiga, Aldactone. -New onset atrial for with RVR currently heart rate controlled- On amiodarone coagulation with Eliquis DC heparin infusion, s/p FRANCISCA cardioversion. Patient left hospital left hospital without waiting for DC paperwork or prescriptions from [facility]. Cardiology team was notified. Update: 04/10/2023 He reports his dyspnea on exertion has improved since discharge, however he has not been very active. He has quit drinking and is trying to cut back on smoking limiting to a ppd. He does not have his current medication list, and is unaware of medications he is taking. Review of Systems Cardiovascular: Negative for chest pain, claudication, dyspnea on exertion, leg swelling, near-syncope, orthopnea, palpitations, paroxysmal nocturnal dyspnea and syncope. Neurological: Negative for light-headedness. All other systems reviewed and are negative. Objective Visit Vitals BP 102/66 (BP Location: Right arm, Patient Position: Sitting) Pulse (!) 45 Ht 1.702 m (5' 7 ) Wt 69.4 kg (153 lb) SpO2 96% BMI 23.96 kg/m??? Smoking Status Every Day BSA 1.81 m??? Physical Exam General: Awake, alert, good spirits. NAD Pulm: Breath sounds clear to ascultation bilaterally with no wheeze, crackles or rhonchi Cards: Regular rate and rhythm, S1, S2. No S3 or S4 gallop. Murmur: none Abd: Soft, Nontender, physiologic bowel sounds are present Extr: Lower extremity edema: None. DP pulses:2+ Skin: warm, dry, well perfused Neuro: A&Ox3, No gross deficits Allergies No Known Allergies Medications Current Outpatient Medications: amiodarone (Pacerone) 200 mg tablet, Take 1 tablet (200 mg) by mouth in the morning. Do not start before June 13, 2022., Disp: 30 tablet, Rfl: 3 apixaban (Eliquis) 5 mg tablet, Take 1 tablet (5 mg) by mouth in the morning and at bedtime., Disp: 180 tablet, Rfl: 3 aspirin 81 mg chewable tablet, Chew 1 tablet (81 mg) with breakfast., Disp: 90 tablet, Rfl: 3 atorvastatin (Lipitor) 40 mg tablet, Take 1 tablet (40 mg) by mouth at bedtime., Disp: 90 tablet, Rfl: 3 carvedilol (Coreg) 6.25 mg tablet, Take 1 tablet (6.25 mg) by mouth with breakfast and with evening meal., Disp: 180 tablet, Rfl: 3 dapagliflozin (Farxiga) 10 mg, Take 1 tablet (10 mg) by mouth in the morning., Disp: 90 tablet, Rfl: 3 folic acid (Folvite) 1 mg tablet, Take 1 tablet (1 mg) by mouth in the morning., Disp: 30 tablet, Rfl: 11 sacubitriL-valsartan (Entresto) 24-26 mg tablet, Take 1 tablet by mouth in the morning and at bedtime., Disp: 180 tablet, Rfl: 3 spironolactone (Aldactone) 25 mg tablet, Take 1 tablet (25 mg) by mouth in the morning., Disp: 90 tablet, Rfl: 3 amiodarone (Pacerone) 400 mg tablet, Take 1 tablet (400 mg) by mouth with breakfast for 7 days., Disp: 7 tablet, Rfl: 0 thiamine (Vitamin B-1) 50 mg tablet, Take 1 tablet (50 mg) by mouth in the morning., Disp: 90 tablet, Rfl: 3 Recent Labs Lab Results Component Value Date NA 139 06/04/2022 K 4.7 06/04/2022 CL 110 (H) 06/04/2022 CO2 21 06/04/2022 BUN 16 06/04/2022 CREATININE 1.18 06/04/2022 GLUCOSE 92 06/04/2022 CALCIUM 8.8 06/04/2022 Lab Results Component Value Date WBC 7.85 05/31/2022 HGB 16.2 06/04/2022 HCT 48.7 06/04/2022 MCV 98.4 (H) 05/31/2022 PLT 245 06/05/2022 Lab Results Component Value Date CHOL 126 05/31/2022 TRI (more content not included)... [facility] 06-11-2022 Note Cardiology Clinic No te Subjective Patrice Kang is a 56 y.o. year old male recently diagnosed with NICM HFrEF 20-25%, atrial fibrillation on Amiodarone and Eliquis s/p DCCV on 06/06/2022, alcohol abuse, and nicotine dependence seen in post hospital follow-up. He reports his dyspnea on exertion has improved since discharge, however he has not been very active. He has quit drinking and is trying to cut back on smoking limiting to a ppd. He does not have his current medication list, and is unaware of medications he is taking. Patient Active Problem List Diagnosis Acute systolic heart failure (CMS/HCC) Atrial fibrillation (CMS/HCC) Family History Problem Relation Name Age of Onset Hypertension Mother Hypertension Father Social History Tobacco Use Smoking status: Every Day Packs/day: 1.00 Types: Cigarettes Smokeless tobacco: Former Substance Use Topics Alcohol use: Yes Alcohol/week: 6.0 standard drinks Types: 6 Cans of beer per week Comment: not since [facility] [[email or web address]] discharge Drug use: Yes Types: Marijuana HPI: Discharge Summary 06/06/2022 Patrice Kang is an 56 y.o. male with no known significant past medical history, history of smoking and EtOH use, presents to the hospital today as a direct transfer from outside facility, [facility]. Patient initially presented at their facility with increased exertional dyspnea associated with midsternal chest pain without any radiation. Denies any nausea or sweating. - New-onset heart failure with reduced ejection fraction- diuresis, optimize electrolyte, strict input and output, Daily weight, cardiology following along status post heart cath -Continue GDMT including ASA, Lipitor, Coreg 6.25 mg twice daily, Entresto, Farxiga, Aldactone. -New onset atrial for with RVR currently heart rate controlled- On amiodarone coagulation with Eliquis DC heparin infusion, s/p FRANCISCA cardioversion. Patient left hospital left hospital without waiting for DC paperwork or prescriptions from [facility]. Cardiology team was notified. Review of Systems Cardiovascular: Positive for dyspnea on exertion and paroxysmal nocturnal dyspnea. Negative for chest pain, claudication, leg swelling, near-syncope, orthopnea, palpitations and syncope. Neurological: Negative for light-headedness. All other systems reviewed and are negative. Objective Visit Vitals BP 109/76 (BP Location: Right arm, Patient Position: Sitting) Pulse (!) 46 Ht 1.702 m (5' 7 ) Wt 68.9 kg (152 lb) SpO2 99% BMI 23.81 kg/m??? Smoking Status Every Day BSA 1.8 m??? Physical Exam General: Awake, alert, good spirits. NAD Pulm: Breath sounds clear to ascultation bilaterally with no wheeze, crackles or rhonchi Cards: Regular rate and rhythm, S1, S2. No S3 or S4 gallop. Murmur: none Abd: Soft, Nontender, physiologic bowel sounds are present Extr: Lower extremity edema: None. DP pulses:2+ Skin: warm, dry, well perfused Neuro: A&Ox3, No gross deficits Allergies No Known Allergies Medications Current Outpatient Medications: [START ON 06/13/2022] amiodarone (Pacerone) 200 mg tablet, Take 1 tablet (200 mg) by mouth in the morning. Do not start before June 13, 2022., Disp: 30 tablet, Rfl: 3 amiodarone (Pacerone) 400 mg tablet, Take 1 tablet (400 mg) by mouth with breakfast for 7 days., Disp: 7 tablet, Rfl: 0 apixaban (Eliquis) 5 mg tablet, Take 1 tablet (5 mg) by mouth in the morning and at bedtime., Disp: 180 tablet, Rfl: 3 aspirin 81 mg chewable tablet, Chew 1 tablet (81 mg) with breakfast., Disp: 90 tablet, Rfl: 3 atorvastatin (Lipitor) 40 mg tablet, Take 1 tablet (40 mg) by mouth at bedtime., Disp: 90 tablet, Rfl: 3 carvedilol (Coreg) 6.25 mg tablet, Take 1 tablet (6.25 mg) by mouth with breakfast and with evening meal., Disp: 180 tablet, Rfl: 3 dapagliflozin (Farxiga) 10 mg, Take 1 tablet (10 mg) by mouth in the morning., Disp: 90 tablet, Rfl: 3 folic acid (Folvite) 1 mg tablet, Take 1 tablet (1 mg) by mouth in the morning., Disp: 30 tablet, Rfl: 11 sacubitriL-valsartan (Entresto) 24-26 mg tablet, Take 1 tablet by mouth in the morning and at bedtime., Disp: 180 tablet, Rfl: 3 spironolactone (Aldactone) 25 mg tablet, Take 1 tablet (25 mg) by mouth in the morning., Disp: 90 tablet, Rfl: 3 thiamine (Vitamin B-1) 50 mg tablet, Take 1 tablet (50 mg) by mouth in the morning., Disp: 90 tablet, Rfl: 3 Recent Labs Lab Results Component Value Date NA 139 06/04/2022 K 4.7 06/04/2022 CL 110 (H) 06/04/2022 CO2 21 06/04/2022 BUN 16 06/04/2022 CREATININE 1.18 06/04/2022 GLUCOSE 92 06/04/2022 CALCIUM 8.8 06/04/2022 Lab Results Component Value Date WBC 7.85 05/31/2022 HGB 16.2 06/04/2022 HCT 48.7 06/04/2022 MCV 98.4 (H) 05/31/2022 PLT 245 06/05/2022 Lab Results Component Value Date CHOL 126 05/31/2022 TRIG 96 05/31/2022 HDL 62 05/31/2022 Imaging and other tests DCCV: 06/06/2022 Patient underwent synchronized cardioversion using 360 (more content not included)... [facility] 06-11-2022 Note Patient here for [facility] for afib and heart failure. He underwent cardioversion and heart cath. He is not sure what medications he is currently taking, but states there are 9-10 pills. Says he feels better s/p hospital stay. SOB is improving, denies chest pain. Review of Systems Cardiovascular: Positive for dyspnea on exertion. Respiratory: Positive for shortness of breath. All other systems reviewed and are negative. [facility] 06-07-2022 Note Provider called pt's Daughter Marisa- [phone] and his primary contact Troy Pineda regarding assistance with obtaining needed medications for pt. RN reported yesterday that pt left hospital without waiting for DC paperwork or prescriptions from [facility]. Therefore, after D/W Mr Pineda and Marisa they requested scripts for medications to be sent to [email or web address] in [place] and Marisa states she will pick them up and assist pt with continuing recommended medications. Also, I informed daughter that pt has appointment at [facility] offioce on 06/11/22 at 11:50 am and she states she will come with him to this appt. Bria Omalley NP Division of Cardiology, [facility]- [phone] Pager- [phone] Email- [email or web address] 06-06-2022 Note Hospital Medicine Discharge Summary Final Discharge Diagnosis: Acute systolic heart failure (CMS/HCC) Admission Diagnosis: Acute systolic heart failure (CMS/HCC) [I50.21] Hospital course: Patrice Kang is an 56 y.o. male with no known significant past medical history, history of smoking and EtOH use, presents to the hospital today as a direct transfer from outside facility, [facility]. Patient initially presented at their facility with increased exertional dyspnea associated with midsternal chest pain without any radiation. Denies any nausea or sweating. - New-onset heart failure with reduced ejection fraction- diuresis, optimize electrolyte, strict input and output, Daily weight, cardiology following along status post heart cath -Continue GDMT including ASA, Liipitor, Coreg 6.25 mg twice daily, Entresto, Farxiga, Aldactone. -New onset atrial for with RVR currently heart rate controlled- On amiodarone coagulation with Eliquis DC heparin infusion, s/p FRANCISCA cardioversion. Patient left hospital left hospital without waiting for DC paperwork or prescriptions from [facility]. Cardiology team was notified. Dear Dr. Uriah MD, [place] is advised to follow up with you within 1-2 weeks. Follow-up with: Cardiology Scheduled appointments: Future Appointments Date Time Provider Department Center 06/11/2022 11:50 AM Samara Thibodeaux NP [facility] Your medication list START taking these medications Instructions Last Dose Given Next Dose Due amiodarone 400 mg tablet Commonly known as: Pacerone Start taking on: June 07, 2022 Take 1 tablet (400 mg) by mouth with breakfast for 7 days. Do not start before June 07, 2022. amiodarone 200 mg tablet Commonly known as: Pacerone Start taking on: June 13, 2022 Take 1 tablet (200 mg) by mouth in the morning. Do not start before June 13, 2022. apixaban 5 mg tablet Commonly known as: Eliquis Take 1 tablet (5 mg) by mouth in the morning and at bedtime for 195 doses. aspirin 81 mg chewable tablet Start taking on: June 07, 2022 Chew 1 tablet (81 mg) with breakfast for 93 doses. Do not start before June 07, 2022. atorvastatin 40 mg tablet Commonly known as: Lipitor Take 1 tablet (40 mg) by mouth at bedtime for 94 doses. carvedilol 6.25 mg tablet Commonly known as: Coreg Take 1 tablet (6.25 mg) by mouth with breakfast and with evening meal for 188 doses. dapagliflozin 10 mg Commonly known as: Farxiga Start taking on: June 07, 2022 Take 1 tablet (10 mg) by mouth in the morning for 93 doses. Do not start before June 07, 2022. folic acid 1 mg tablet Commonly known as: Folvite Start taking on: June 07, 2022 Take 1 tablet (1 mg) by mouth in the morning for 93 doses. Do not start before June 07, 2022. sacubitriL-valsartan 24-26 mg tablet Commonly known as: Entresto Take 1 tablet by mouth in the morning and at bedtime for 187 doses. spironolactone 25 mg tablet Commonly known as: Aldactone Start taking on: June 07, 2022 Take 1 tablet (25 mg) by mouth in the morning for 94 doses. Do not start before June 07, 2022. thiamine 50 mg tablet Commonly known as: Vitamin B-1 Start taking on: June 07, 2022 Take 1 tablet (50 mg) by mouth in the morning for 93 doses. Do not start before June 07, 2022. Where to Get Your Medications These medications were sent to [facility] [place] [address] [address] [place] [address] [place] [address], [facility] [id number] amiodarone 200 mg tablet amiodarone 400 mg tablet apixaban 5 mg tablet aspirin 81 mg chewable tablet atorvastatin 40 mg tablet carvedilol 6.25 mg tablet dapagliflozin 10 mg folic acid 1 mg tablet sacubitriL-valsartan 24-26 mg tablet spironolactone 25 mg tablet thiamine 50 mg tablet Patrice has No Known Allergies. Disposition: Home or Self Care Discharge Condition: Stable Code Status: Prior Diagnostic Results Hematology: Results from last 7 days Lab Units 06/05/22 0538 06/04/22 1647 06/04/22 0506 HEMOGLOBIN g/dL -- -- 16.2 HEMATOCRIT % -- -- 48.7 PLATELETS AUTO 10*3/uL 245 269 -- Chemistry: Results from last 7 days Lab Units 06/04/22 0506 SODIUM mmol/L 139 POTASSIUM mmol/L 4.7 CHLORIDE mmol/L 110* CO2 mmol/L 21 BUN mg/dL 16 CREATININE mg/dL 1.18 GLUCOSE mg/dL 92 CALCIUM mg/dL 8.8 No lab exists for component: AFIO2, APHT, APCOT, APOT, ATCO2, CK, ALB, IBILI Test Results Pending At Discharge: Diet at the time of discharge: regular diet and cardiac diet Activity: Patient currently has no discharge activity orders Objective Blood pressure 111/89, pulse 90, temperature 36.6 ???C (97.8 ???F), temperature source Temporal, resp. rate 14, height 1.702 m (5' 7 ), weight 66 kg (145 lb 8.1 oz), SpO2 98 %. General: Alert and oriented x3. Cardiology: Normal rate, regular rhythm. Lungs: C (more content not included)... [facility] 06-06-2022 Note DIRECT CARDIOVERSION PROCEDURE NOTE Date: . Type of procedure: DC Cardioversion. Performed by: Antolin Ayala MD/ Dr Deborah Linder Informed consent: Signed by patient. Indication: 56 y.o. male with past medical history significant for tobacco abuse and alcohol use was transferred to [email or web address] from [facility] due to increased exertional dyspnea associated with substernal chest pain. A few months ago he started having shortness of breath with all of the activities that he was doing. At an outside facility he was noted to be in atrial fibrillation with RVR and new onset systolic heart failure with an EF of 25%. He was started on Coreg and Entresto for GDMT. Previously he was cardiovertws and did not convert and so Amio was started. Preparation and technique: Patient was brought into the procedure room. After an informed consent was obtained following a discussion with the patient where I explained the risk and benefit of the procedure that is not limited to skin ha, fluid in the lungs, heart attack, stroke, or even , though that is very rare. Patches were placed in anteroposterior direction and once patient was made comfortable with Versed 4mg and Fentanyl 50mcg. Following sedation, the patient underwent synchronized cardioversion using 360J which converted to sinus rhythm. Post procedure, the patient was stable. No complications noted. Plan: Continue anticoagulation. Antolin Ayala MD Cardiac Electrophysiology [facility] 06-06-2022 Note Patient refused all discharge education stating I don't want to hear it, I just want to go home. Patient signed AVS but is refusing to wait for prescriptions to be filled by imeds. RN instructed on the importance of medications but patient still refusing and walked off unit. Tasha LAWSON notified. [facility] 06-06-2022 Note Hospital Medicine Daily Progress Note - 06/06/2022 11:21 AM; Room: [address] [place] [address] Admission: 05/31/2022 8:24 PM; Length of stay: 6 days THE HOSPITALIST TEAM PREFERS TO USE [employer] CHAT FOR COMMUNICATION 7AM-7PM. IF I DO NOT RESPOND WITHIN 15 MINUTES, PLEASE PAGE ME/CALL THROUGH THE PHARMACY TEACHER. FROM 7PM-7AM, PLEASE PAGE [phone](COVR) Code Status: Full Code Discharge Destination: home Expected Discharge: tomorrow Overview Patient is seen for evaluation and management of new onset atrial fibrillation/ new onset heart failure Subjective doing okay, on room air, alert oriented x 4. Physical Exam Visit Vitals BP 107/80 (BP Location: Right arm, Patient Position: Lying) Pulse 81 Temp 36.6 ???C (97.8 ???F) (Temporal) Resp 17 Intake/Output Summary (Last 24 hours) at 06/06/2022 1121 Last data filed at 06/06/2022 1030 Gross per 24 hour Intake 1149.37 ml Output 1000 ml Net 149.37 ml Physical Exam Vitals reviewed. Constitutional: Appearance: Normal appearance. HENT: Head: Normocephalic. Eyes: Pupils: Pupils are equal, round, and reactive to light. Cardiovascular: Rate and Rhythm: Normal rate and regular rhythm. Pulmonary: Effort: Pulmonary effort is normal. Skin: General: Skin is warm. Neurological: General: No focal deficit present. Mental Status: He is alert and oriented to person, place, and time. Psychiatric: Mood and Affect: Mood normal. Estimated body mass index is 22.79 kg/m??? as calculated from the following: Height as of this encounter: 1.702 m (5' 7 ). Weight as of this encounter: 66 kg (145 lb 8.1 oz). Active Inpatient Problems Principal Problem: Acute systolic heart failure (CMS/HCC) Active Problems: Atrial fibrillation (CMS/HCC) Assessment and Plan - New-onset heart failure with reduced ejection fraction- continue IV diuresis, optimize electrolyte, strict input and output, Daily weight, cardiology following along status post heart cath -Continue GDMT including ASA, Liipitor, Coreg 6.25 mg twice daily, Entresto, Farxiga, Aldactone. - New onset atrial for with RVR currently heart rate controlled- On amiodarone coagulation with Eliquis DC heparin infusion, plan for FRANCISCA cardioversion today VTE Prophylaxis: Eliquis Scheduled Meds amiodarone, 400 mg, oral, Daily with breakfast apixaban, 5 mg, oral, BID aspirin, 81 mg, oral, Daily with breakfast atorvastatin, 40 mg, oral, Nightly carvedilol, 6.25 mg, oral, BID with meals dapagliflozin, 10 mg, oral, Daily folic acid, 1 mg, oral, Daily sacubitriL-valsartan, 1 tablet, oral, BID spironolactone, 25 mg, oral, Daily thiamine, 50 mg, oral, Daily amiodarone, 1 mg/min, Last Rate: 1 mg/min (06/06/22 0957) Pertinent Investigations Hematology: Results from last 7 days Lab Units 06/05/22 0538 06/04/22 1647 06/04/22 0506 05/31/22 2242 WBC AUTO 10*3/uL -- -- -- 7.85 HEMOGLOBIN g/dL -- -- 16.2 14.6 HEMATOCRIT % -- -- 48.7 43.7 MCV fL -- -- -- 98.4* PLATELETS AUTO 10*3/uL 245 269 -- 213 Chemistry: Results from last 7 days Lab Units 06/04/22 0506 05/31/22 2242 SODIUM mmol/L 139 138 POTASSIUM mmol/L 4.7 3.8 CHLORIDE mmol/L 110* 105 CO2 mmol/L 21 24 BUN mg/dL 16 16 CREATININE mg/dL 1.18 1.17 GLUCOSE mg/dL 92 101* MAGNESIUM mg/dL -- 1.8* CALCIUM mg/dL 8.8 8.7 Results from last 7 days Lab Units 05/31/22 2242 AST U/L 17 ALT U/L 17 ALK PHOS U/L 77 BILIRUBIN TOTAL mg/dL 0.4 BILIRUBIN DIRECT mg/dL 0.1 Historical Values: (Includes values prior to this admission) Lab Results Component Value Date HDL 62 05/31/2022 LDL 64 05/31/2022 No results found for: [id number], IRON, TIBC, C3, C4, MELISA, CANCA, ASO, PSA, CEA, CA125, CA199, AFP, CA153 Imaging Cardiac catheterization PROCEDURE PHYSICIAN: To Lovett MD . Indications: Patrice Kang is a 56 y.o. male who is admitted with acute systolic heart failure and severely reduced left nuclear systolic function. In addition he has atrial fibrillation with rapid ventricular response and failed FRANCISCA guided cardioversion. He was referred for cardiac catheterization. Assistants: None. Procedure Performed: Bilateral selective coronary angiogram. Right heart catheterization. Administration of intravascular nitroglycerin. Access into the right internal jugular vein under ultrasound guidance. Access into the right radial artery under ultrasound guidance. Methods: Procedure was explained to the patient with risks and benefits; he signed informed consent. The patient was brought to circus laborer in a fasting state. The right neck area was prepped and draped in usual fashion. Micropuncture technique was used for access under ultrasound guidance into the right internal jugular vein. A 6-Bangladeshi x 11 cm sheath was placed. The right wrist area was prepped and draped in usual fashion. Micropuncture technique was used for access in the right radial artery under ultrasound guidance. A 6-Bangladeshi x 11 cm sheat (more content not included)... [facility] 06-06-2022 Note Cardiology Progress Note Subjective F/U- Afib, New HFrEF Assessed at bedside No acute events overnight. Remains in A fib rate 90-106 Amiodarone infusion started yesterday for loading and plan for cardioversion today. Pt denied chest pain, shortness of breath, orthopnea, palpitations. Objective BP 111/89 Pulse 90 Temp 36.6 ???C (97.8 ???F) (Temporal) Resp 14 Ht 1.702 m (5' 7 ) Wt 66 kg (145 lb 8.1 oz) SpO2 98% BMI 22.79 kg/m??? Physical Examination: GENERAL: AOx3, obese, in no acute distress. HEAD: Atraumatic, normocephalic. EYES: NELLY, EOMI. NECK: No JVD present, no carotid bruits present. CARDIAC: S1, S2 present. Irregularly irregular tachycardia. No murmur, rubs, or gallops. RESPIRATORY: CTAB, no increased effort of breathing. ABDOMEN: Soft, nontender, nondistended. EXTREMITIES: No lower extremity edema, peripheral pulses are 2+ bilaterally. NEURO: No focal deficits. PSYCH: appropriate mood, affect. Relevant Lab Results No results found for: CKTOTAL, CKMB, CKMBINDEX, TROPONINI No nuclear medicine results found for the past 12 months Relevant Imaging Results Echo - Left Ventricle: The left ventricle appears enlarged. Global left ventricular systolic function is severely reduced. The EF is 20 % visually. Diffuse global hypokinesis. Right Ventricle: The right ventricle appears normal in size. Right ventricular systolic function appears reduced. Left Atrium: The left atrium appears enlarged. Left Atrium Appendage: Normal left atrial appendage, no thrombus seen. IAS: No intracardiac shunt by agitated saline injections. Mitral Valve: Mild mitral regurgitation. Overall Conclusions: Unsuccessful synchronized direct current cardioversion performed at 360 J of energy Rt LT Cors- Hemodynamic Data: RA: 8 RV: 30/5, 6 PA: 32/12 (23) PCWP: 16 CO: 3.77 CI: 2.08 O2 Sat: PA sat: 67%, AO sat: 96% AO: 87/66 (76) Coronary angiography: This is a co-dominant circulation. Left Main: This arises from left coronary cusp. It bifurcates into left anterior descending and circumflex vessels. The left main is angiographically normal. Left anterior descending: this is a large vessel. It has moderate calcifications and mild disease in the midsegment but no obstructive lesions. The rest of the vessel is free of disease. Circumflex: this is large and codominant. It is free of disease. Right coronary artery: this is large and codominant. It arises from the right coronary cusp. It is free of disease. Impression/Findings: Coronary angiogram shows mild calcifications and disease in the mid LAD and no angiographic disease elsewhere. Mild elevation of left filling pressures. Mild elevation of right filling pressures. mild pulmonary hypertension. Reduced cardiac output and cardiac index. Controlled systemic hypertension. The current findings are consistent with nonischemic cardiomyopathy as a cause of the left regular systolic dysfunction and acute systolic heart failure, possibly related to atrial fibrillation. Assessment: Patrice Kang is a 56 y.o. male with no significant past medical history presented as a transfer from [facility] due to worsening exertional dyspnea. He does not follow-up with a physician outpatient, was recently found to have a new decrease in ejection fraction around 25% and atrial fibrillation. He was started on GDMT with Entresto and Coreg for the new onset HF and therapeutic Lovenox for atrial fibrillation. He is currently compensated, no signs of fluid overload. CXR shows concern for pneumonia, BNP 1002, lipid profile is normal, A1c is normal. Due to the new decrease in ejection fraction, an invasive cardiac approach is warranted. New onset systolic heart failure 25%, unknown etiology, NYHA class III Paroxysmal atrial fibrillation, ChadsVasc 2 Polysubstance abuse (tobacco use, alcohol abuse) Mild CAD Plan: Continue amiodarone infusion for loading with Amiodarone 400 mg po daily with DCCV today for rhythm control. Monitor telemetry overnight and possible DC tomorrow Mild CAD- Continue GDMT Continue GDMT including ASA, Lipitor, Coreg 6.25 mg twice daily, Entresto, Farxiga, Aldactone. Continue eliquis anticoagulation. Bria Omalley HUMAN RESOURCES ASSISTANT MANAGER Division of Cardiology, [facility]- [phone] Pager- [phone] Email- [email or web address] 06-05-2022 Note Hospital Medicine Daily Progress Note - 06/05/2022 2:44 PM; Room: [address] [place] [address] Admission: 05/31/2022 8:24 PM; Length of stay: 5 days THE HOSPITALIST TEAM PREFERS TO USE [employer] CHAT FOR COMMUNICATION 7AM-7PM. IF I DO NOT RESPOND WITHIN 15 MINUTES, PLEASE PAGE ME/CALL THROUGH THE PHARMACY TEACHER. FROM 7PM-7AM, PLEASE PAGE [phone](COVR) Code Status: Full Code Discharge Destination: rehab Expected Discharge: to be determined Overview Patient is seen for evaluation and management of new onset heart failure Subjective patient laying in bed comfortably, denies chest pain and shortness of breath. Physical Exam Visit Vitals BP 102/86 Pulse 107 Temp 36.6 ???C (97.8 ???F) Resp 11 Intake/Output Summary (Last 24 hours) at 06/05/2022 1444 Last data filed at 06/05/2022 1429 Gross per 24 hour Intake 1244.63 ml Output 105 ml Net 1139.63 ml Physical Exam Vitals reviewed. Constitutional: Appearance: Normal appearance. HENT: Head: Normocephalic and atraumatic. Mouth/Throat: Mouth: Mucous membranes are dry. Pulmonary: Effort: Pulmonary effort is normal. Breath sounds: Normal breath sounds. Skin: General: Skin is warm and dry. Neurological: General: No focal deficit present. Mental Status: He is alert and oriented to person, place, and time. Mental status is at baseline. Psychiatric: Mood and Affect: Mood normal. Behavior: Behavior normal. Estimated body mass index is 24.17 kg/m??? as calculated from the following: Height as of this encounter: 1.702 m (5' 7 ). Weight as of this encounter: 70 kg (154 lb 5.2 oz). Active Inpatient Problems Principal Problem: Acute systolic heart failure (CMS/HCC) Active Problems: Atrial fibrillation (CMS/HCC) Assessment and Plan - New-onset heart failure with reduced ejection fraction- continue IV diuresis, optimize electrolyte, strict input and output, Daily weight, cardiology following along status post heart cath -Continue GDMT including ASA, Liipitor, Coreg 6.25 mg twice daily, Entresto, Farxiga, Aldactone. - New onset atrial for with RVR currently heart rate controlled- On amiodarone coagulation with Eliquis DC heparin infusion VTE Prophylaxis: Eliquis Scheduled Meds [START ON 06/06/2022] amiodarone, 400 mg, oral, Daily with breakfast apixaban, 5 mg, oral, BID aspirin, 81 mg, oral, Daily with breakfast atorvastatin, 40 mg, oral, Nightly carvedilol, 6.25 mg, oral, BID with meals dapagliflozin, 10 mg, oral, Daily folic acid, 1 mg, oral, Daily sacubitriL-valsartan, 1 tablet, oral, BID spironolactone, 25 mg, oral, Daily thiamine, 50 mg, oral, Daily amiodarone, 1 mg/min, Last Rate: 1 mg/min (06/05/22 1429) Pertinent Investigations Hematology: Results from last 7 days Lab Units 06/05/22 0538 06/04/22 1647 06/04/22 0506 05/31/22 2242 WBC AUTO 10*3/uL -- -- -- 7.85 HEMOGLOBIN g/dL -- -- 16.2 14.6 HEMATOCRIT % -- -- 48.7 43.7 MCV fL -- -- -- 98.4* PLATELETS AUTO 10*3/uL 245 269 -- 213 Chemistry: Results from last 7 days Lab Units 06/04/22 0506 05/31/22 2242 SODIUM mmol/L 139 138 POTASSIUM mmol/L 4.7 3.8 CHLORIDE mmol/L 110* 105 CO2 mmol/L 21 24 BUN mg/dL 16 16 CREATININE mg/dL 1.18 1.17 GLUCOSE mg/dL 92 101* MAGNESIUM mg/dL -- 1.8* CALCIUM mg/dL 8.8 8.7 Results from last 7 days Lab Units 05/31/22 2242 AST U/L 17 ALT U/L 17 ALK PHOS U/L 77 BILIRUBIN TOTAL mg/dL 0.4 BILIRUBIN DIRECT mg/dL 0.1 Historical Values: (Includes values prior to this admission) Lab Results Component Value Date HDL 62 05/31/2022 LDL 64 05/31/2022 No results found for: [id number], IRON, TIBC, C3, C4, MELISA, CANCA, ASO, PSA, CEA, CA125, CA199, AFP, CA153 Imaging ECG 12 lead Suspect arm lead reversal, interpretation assumes no reversal Atrial flutter with variable A-V block Anterolateral infarct (cited on or before 31-MAY-2022) Abnormal ECG When compared with ECG of 03-JUN-2022 08:20, Nonspecific T wave abnormality no longer evident in Inferior lead Confirmed by Imtiaz MEDRANO, SAHIL Zacarias ([id number]) on 06/05/2022 10:51:53 AM Discharge Planning Discharge Planning Does the patient need discharge transport arranged?: No Has discharge transport been arranged?: No Signed David Cordova MD [facility] Medicine 06/05/2022 2:44 PM [facility] 06-05-2022 Note Social Work Note Met with patient at bedside to conduct screening. Patient was guarded when answering questions. Patient states that right now he is living with friends from house to house , but is originally from [place]. Patient declined housing, financial and mental health resources. Patient states that he has friends that can help him and declined answering any more questions. [facility] 06-05-2022 Note Cardiology Progress Note Subjective F/U- Afib, New HFrEF Assessed at bedside No acute events overnight. Remains in A fib rate 90-106 Amiodarone infusion started for loading and plan for cardioversion tomorrow. Pt denied chest pain, shortness of breath, orthopnea, palpitations. He is very stoic and very limited conversation with provider. Objective BP 102/72 Pulse 81 Temp 36.6 ???C (97.8 ???F) Resp 16 Ht 1.702 m (5' 7 ) Wt 70 kg (154 lb 5.2 oz) SpO2 92% BMI 24.17 kg/m??? Physical Examination: GENERAL: AOx3, obese, in no acute distress. HEAD: Atraumatic, normocephalic. EYES: NELLY, EOMI. NECK: No JVD present, no carotid bruits present. CARDIAC: S1, S2 present. Irregularly irregular tachycardia. No murmur, rubs, or gallops. RESPIRATORY: CTAB, no increased effort of breathing. ABDOMEN: Soft, nontender, nondistended. EXTREMITIES: No lower extremity edema, peripheral pulses are 2+ bilaterally. NEURO: No focal deficits. PSYCH: appropriate mood, affect. Relevant Lab Results No results found for: CKTOTAL, CKMB, CKMBINDEX, TROPONINI No nuclear medicine results found for the past 12 months Relevant Imaging Results Echo - Left Ventricle: The left ventricle appears enlarged. Global left ventricular systolic function is severely reduced. The EF is 20 % visually. Diffuse global hypokinesis. Right Ventricle: The right ventricle appears normal in size. Right ventricular systolic function appears reduced. Left Atrium: The left atrium appears enlarged. Left Atrium Appendage: Normal left atrial appendage, no thrombus seen. IAS: No intracardiac shunt by agitated saline injections. Mitral Valve: Mild mitral regurgitation. Overall Conclusions: Unsuccessful synchronized direct current cardioversion performed at 360 J of energy Rt LT Cors- Hemodynamic Data: RA: 8 RV: 30/5, 6 PA: 32/12 (23) PCWP: 16 CO: 3.77 CI: 2.08 O2 Sat: PA sat: 67%, AO sat: 96% AO: 87/66 (76) Coronary angiography: This is a co-dominant circulation. Left Main: This arises from left coronary cusp. It bifurcates into left anterior descending and circumflex vessels. The left main is angiographically normal. Left anterior descending: this is a large vessel. It has moderate calcifications and mild disease in the midsegment but no obstructive lesions. The rest of the vessel is free of disease. Circumflex: this is large and codominant. It is free of disease. Right coronary artery: this is large and codominant. It arises from the right coronary cusp. It is free of disease. Impression/Findings: Coronary angiogram shows mild calcifications and disease in the mid LAD and no angiographic disease elsewhere. Mild elevation of left filling pressures. Mild elevation of right filling pressures. mild pulmonary hypertension. Reduced cardiac output and cardiac index. Controlled systemic hypertension. The current findings are consistent with nonischemic cardiomyopathy as a cause of the left regular systolic dysfunction and acute systolic heart failure, possibly related to atrial fibrillation. Assessment: Patrice Kang is a 56 y.o. male with no significant past medical history presented as a transfer from [facility] due to worsening exertional dyspnea. He does not follow-up with a physician outpatient, was recently found to have a new decrease in ejection fraction around 25% and atrial fibrillation. He was started on GDMT with Entresto and Coreg for the new onset HF and therapeutic Lovenox for atrial fibrillation. He is currently compensated, no signs of fluid overload. CXR shows concern for pneumonia, BNP 1002, lipid profile is normal, A1c is normal. Due to the new decrease in ejection fraction, an invasive cardiac approach is warranted. New onset systolic heart failure 25%, unknown etiology, NYHA class III Paroxysmal atrial fibrillation, ChadsVasc 2 Polysubstance abuse (tobacco use, alcohol abuse) Mild CAD Plan: Plan for amiodarone infusion for loading with Amiodarone 400 mg po daily with DCCV tomorrow for rhythm control. Mild CAD- Continue GDMT Continue GDMT including ASA, Liipitor, Coreg 6.25 mg twice daily, Entresto, Farxiga, Aldactone. Start eliquis anticoagulation. DC heparin infusion Bria Omalley NP Division of Cardiology, [facility]- [phone] Pager- [phone] Email- [email or web address] 06-04-2022 Note ---- Attestation signed by Sahil Medrano MD at 06/05/2022 12:41 PM I personally saw and examined the patient on the same date of service as resident/fellow Dr. Vergara. I discussed the findings and therapeutic plan with the resident/fellow Dr. Vergara. I agree with the documentation, except for any edits/updates below. Teaching Physician's Revisions: I was present during all the procedure. ---- PRE-OP DIAGNOSIS: Atrial fibrillation, cardiomyopathy POST-OP DIAGNOSIS: Atrial fibrillation, cardiomyopathy PHARMACY TEACHER: Sahil Medrano MD, Deborah Vergara DO ANESTHESIA: Moderate sedation COMPLICATIONS: None. OPERATIVE TERM: DC cardioversion. An informed consent was obtained from the patient after explaining the indication, risk and benefits, and alternatives. The patient understood, agreed, and signed the consent form. The patient was brought to the circus laborer and transesophageal echocardiogram was performed under conscious sedation. OPERATIVE TECHNIQUE: The patient obtained a total of Versed 8 mg and 100 mcg of Fentanyl during the procedure. . The transesophageal echocardiogram did not show any thrombus in the left atrial appendage. Full FRANCISCA reported elsewhere. After the transesophageal echocardiogram, a synchronized biphasic cardioversion was done with 360 joules of energy. The patient unsuccessfully remained in atrial fibrillation as evidence by the EKG done postprocedure. His hemodynamics remained stable during the procedure. IMPRESSION: Unsuccessful DC cardioversion. [facility] 06-04-2022 Note Patient: Patrice colby Procedure Information Date/Time: 06/04/22 1625 Procedures: Coronary angiography Right heart cath Location: [facility] [[email or web address] [employer] [address] / [facility] (Cath) Providers: To Lovett MD Clinical information reviewed: Allergies Meds Physical Exam Airway Mallampati: II TM distance: >3 FB Neck ROM: full Cardiovascular Dental Pulmonary Abdominal Anesthesia Plan ASA 3 other (Conscious sedation) Anesthetic plan and risks discussed with patient. Use of blood products discussed with patient who consented to blood products. Additional Equipment Requests [facility] 06-04-2022 Note Hospital Medicine Daily Progress Note - 06/04/2022 11:39 AM; Room: [address] [place] [address] Admission: 05/31/2022 8:24 PM; Length of stay: 4 days THE HOSPITALIST TEAM PREFERS TO USE [employer] FOR COMMUNICATION 7AM-7PM. IF I DO NOT RESPOND WITHIN 15 MINUTES, PLEASE PAGE ME/CALL THROUGH THE PHARMACY TEACHER. FROM 7PM-7AM, PLEASE PAGE [phone](COVR) Code Status: Full Code Discharge Destination: rehab Expected Discharge: to be determined Overview Patient is seen for evaluation and management of acute on chronic heart failure/ and NSTEMI Subjective patient doing okay, on room air, family was at bedside. denies chest pain and shortness of breath. Physical Exam Visit Vitals BP 98/79 Pulse 99 Temp 36.5 ???C (97.7 ???F) Resp 16 Intake/Output Summary (Last 24 hours) at 06/04/2022 1139 Last data filed at 06/03/2022 2330 Gross per 24 hour Intake 1320 ml Output -- Net 1320 ml Physical Exam Vitals reviewed. Constitutional: Appearance: Normal appearance. HENT: Head: Normocephalic. Eyes: Extraocular Movements: Extraocular movements intact. Pupils: Pupils are equal, round, and reactive to light. Cardiovascular: Rate and Rhythm: Normal rate. Pulmonary: Effort: Pulmonary effort is normal. Musculoskeletal: Cervical back: Normal range of motion. Right lower leg: No edema. Left lower leg: No edema. Neurological: General: No focal deficit present. Mental Status: He is alert and oriented to person, place, and time. Psychiatric: Mood and Affect: Mood normal. Estimated body mass index is 24.14 kg/m??? as calculated from the following: Height as of this encounter: 1.702 m (5' 7 ). Weight as of this encounter: 69.9 kg (154 lb 1.6 oz). Active Inpatient Problems Principal Problem: Acute systolic heart failure (CMS/HCC) Active Problems: Atrial fibrillation (CMS/HCC) Assessment and Plan - New-onset heart failure with reduced ejection fraction- continue IV diuresis, optimize electrolyte, strict input and output, Daily weight, cardiology following along plan for left heart cath today. - New onset atrial for with RVR currently heart rate controlled- cardiology team on board, Plan for FRANCISCA/DCCV today for rhythm control. Continue amiodarone 400 mg twice daily. VTE Prophylaxis: Therapeutic dose Lovenox Scheduled Meds amiodarone, 400 mg, oral, BID with meals aspirin, 81 mg, oral, Daily with breakfast atorvastatin, 40 mg, oral, Nightly carvedilol, 6.25 mg, oral, BID with meals dapagliflozin, 10 mg, oral, Daily enoxaparin, 1 mg/kg, subcutaneous, BID folic acid, 1 mg, oral, Daily sacubitriL-valsartan, 1 tablet, oral, BID spironolactone, 25 mg, oral, Daily thiamine, 50 mg, oral, Daily Pertinent Investigations Hematology: Results from last 7 days Lab Units 06/04/22 0506 05/31/22 2242 WBC AUTO 10*3/uL -- 7.85 HEMOGLOBIN g/dL 16.2 14.6 HEMATOCRIT % 48.7 43.7 MCV fL -- 98.4* PLATELETS AUTO 10*3/uL -- 213 Chemistry: Results from last 7 days Lab Units 06/04/22 0506 05/31/22 2242 SODIUM mmol/L 139 138 POTASSIUM mmol/L 4.7 3.8 CHLORIDE mmol/L 110* 105 CO2 mmol/L 21 24 BUN mg/dL 16 16 CREATININE mg/dL 1.18 1.17 GLUCOSE mg/dL 92 101* MAGNESIUM mg/dL -- 1.8* CALCIUM mg/dL 8.8 8.7 Results from last 7 days Lab Units 05/31/22 2242 AST U/L 17 ALT U/L 17 ALK PHOS U/L 77 BILIRUBIN TOTAL mg/dL 0.4 BILIRUBIN DIRECT mg/dL 0.1 Historical Values: (Includes values prior to this admission) Lab Results Component Value Date HDL 62 05/31/2022 LDL 64 05/31/2022 No results found for: [id number], IRON, TIBC, C3, C4, MELISA, CANCA, ASO, PSA, CEA, CA125, CA199, AFP, CA153 Imaging ECG 12 lead Atrial fibrillation with rapid ventricular response Left axis deviation Anteroseptal infarct (cited on or before 31-MAY-2022) Abnormal ECG When compared with ECG of 31-MAY-2022 20:29, No significant change was found Confirmed by Imtiaz MEDRANO, SAHIL Zacarias ([id number]) on 06/03/2022 2:40:10 PM Discharge Planning Discharge Planning Does the patient need discharge transport arranged?: No Has discharge transport been arranged?: No Signed David Cordova MD [facility] Medicine 06/04/2022 11:39 AM [facility] 06-04-2022 Note ---- Attestation signed by Eddi Simms MD at 06/04/2022 5:29 PM I personally saw and examined the patient on the same date of service as resident/fellow Dr. Hernandez. I discussed the findings and therapeutic plan with the resident/fellow Dr. Hernandez. I agree with the documentation, except for any edits/updates below. Teaching Physician's Revisions: none Agree with plan for FRANCISCA/cardioversion for afib And cardiac cath due to acute HFrEF ---- Cardiology Progress Note Subjective Subjective: Patrice Kang is a 56 y.o. male who was seen and evaluated at bedside this morning. There were no acute events overnight. He is afebrile and hemodynamically stable. He still in atrial fibrillation this morning. He is asymptomatic. Objective Objective: Patient Vitals for the past 24 hrs: BP Temp Temp src Pulse Resp SpO2 Weight 06/04/22 0732 98/79 36.5 ???C (97.7 ???F) -- 99 16 98 % -- 06/04/22 0440 100/82 -- -- 108 21 94 % 69.9 kg (154 lb 1.6 oz) 06/04/22 0000 105/90 -- -- 95 22 100 % -- 06/03/22 2030 122/85 36.7 ???C (98.1 ???F) -- 102 19 95 % -- 06/03/22 1700 99/88 -- -- -- -- -- -- 06/03/22 1615 89/72 36.2 ???C (97.2 ???F) Temporal 98 17 98 % -- 06/03/22 1113 97/75 35.7 ???C (96.2 ???F) Temporal (!) 120 24 96 % -- Physical Examination: GENERAL: AOx3, obese, in no acute distress. HEAD: Atraumatic, normocephalic. EYES: NELLY, EOMI. NECK: No JVD present, no carotid bruits present. CARDIAC: S1, S2 present. Irregularly irregular tachycardia. No murmur, rubs, or gallops. RESPIRATORY: CTAB, no increased effort of breathing. ABDOMEN: Soft, nontender, nondistended. EXTREMITIES: No lower extremity edema, peripheral pulses are 2+ bilaterally. NEURO: No focal deficits. PSYCH: appropriate mood, affect. Relevant Lab Results Encounter Date: 05/31/22 ECG 12 lead Result Value Ventricular Rate 111 QRS DURATION 80 QT Interval 358 QTC CALCULATION(BAZETT) 486 R-Cache -70 T Wave Cache 22 Impression Atrial fibrillation with rapid ventricular response Left axis deviation Anteroseptal infarct (cited on or before 31-MAY-2022) Abnormal ECG When compared with ECG of 31-MAY-2022 20:29, No significant change was found Confirmed by Imtiaz MEDRANO, SAHIL Zacarias ([id number]) on 06/03/2022 2:40:10 PM No results found for: CKTOTAL, CKMB, CKMBINDEX, TROPONINI No echocardiogram results found for the past 12 months No nuclear medicine results found for the past 12 months Relevant Imaging Results ECG 12 lead Atrial fibrillation with rapid ventricular response Left axis deviation Anteroseptal infarct (cited on or before 31-MAY-2022) Abnormal ECG When compared with ECG of 31-MAY-2022 20:29, No significant change was found Confirmed by Imtiaz MEDRANO, SAHIL Zacarias ([id number]) on 06/03/2022 2:40:10 PM Assessment: Patrice Kang is a 56 y.o. male with no significant past medical history presented as a transfer from [facility] due to worsening exertional dyspnea. He does not follow-up with a physician outpatient, was recently found to have a new decrease in ejection fraction around 25% and atrial fibrillation. He was started on GDMT with Entresto and Coreg for the new onset HF and therapeutic Lovenox for atrial fibrillation. He is currently compensated, no signs of fluid overload. CXR shows concern for pneumonia, BNP 1002, lipid profile is normal, A1c is normal. Due to the new decrease in ejection fraction, an invasive cardiac approach is warranted. New onset systolic heart failure 25%, unknown etiology, NYHA class III Paroxysmal atrial fibrillation, ChadsVasc 2 Polysubstance abuse (tobacco use, alcohol abuse) Plan: Plan for FRANCISCA/DCCV today for rhythm control. Continue amiodarone 400 mg twice daily. Plan for left and right heart cardiac catheterization today as well. He has been n.p.o. since midnight. Continue GDMT including Coreg 6.25 mg twice daily, Entresto, Farxiga, Aldactone. Currently on Lovenox twice daily. We will switch to DOAC starting tomorrow. Keysha Hernandez MD Trial Paralegal - PGY4 [facility] 06-03-2022 Note ---- Attestation signed by Lora Uribe PharmD at 06/04/2022 1:58 PM ---- Patrice Kang completed heart failure education. Disease state, signs and symptoms of heart failure, diet/lifestyle, and when to seek medical attention were discussed along with medications and their dose, directions, and side effects. Time spent providing education was 15 minutes. Thanks, Samaria Latif, 06/03/22 [facility] 06-03-2022 Note Pt admitted to [facility] for acute systolic heart failure, estimated EF 25%. Pt has echo/cardiac cath scheduled. I will wait for current echo results to determine pt's eligibility to participate in cardiac rehab (CR) therapy with heart failure diagnosis and follow up with pt, if appropriate. JARON Rico software engineering manager Outpatient Coordinator Cardiac Rehab [facility] 06-03-2022 Note ---- Attestation signed by Sahil Medrano MD at 06/03/2022 5:13 PM I personally saw and examined the patient on the same date of service as resident/fellow Dr. Hernandez. I discussed the findings and therapeutic plan with the resident/fellow Dr. Hernandez. I agree with the documentation, except for any edits/updates below. Teaching Physician's Revisions: None. ---- Cardiology Progress Note Subjective Subjective: Patrice Kang is a 56 y.o. male who was seen and evaluated at bedside this morning. He denies any acute complaints including chest pain, shortness of breath, palpitations, syncope. He is afebrile and hemodynamically stable. He is still in atrial fibrillation with slightly rapid ventricular rates. Objective Objective: Patient Vitals for the past 24 hrs: BP Temp Temp src Pulse Resp SpO2 Weight 06/03/22 0912 102/78 -- -- -- -- -- -- 06/03/22 0818 -- -- -- (!) 128 -- -- -- 06/03/22 0720 103/74 35.8 ???C (96.4 ???F) Temporal (!) 116 20 97 % -- 06/03/22 0400 106/74 36.7 ???C (98 ???F) Temporal 80 20 96 % 70.2 kg (154 lb 12.2 oz) 06/03/22 0024 101/77 36.6 ???C (97.8 ???F) Temporal 92 19 99 % -- 06/02/22 1958 128/88 36.2 ???C (97.1 ???F) Temporal (!) 115 12 97 % -- 06/02/22 1655 (!) 108/94 -- -- (!) 122 -- -- -- 06/02/22 1200 (!) 113/95 35.5 ???C (95.9 ???F) Temporal (!) 118 24 96 % -- Physical Examination: GENERAL: AOx3, obese, in no acute distress. HEAD: Atraumatic, normocephalic. EYES: NELLY, EOMI. NECK: No JVD present, no carotid bruits present. CARDIAC: S1, S2 present. Irregularly irregular tachycardia. No murmur, rubs, or gallops. RESPIRATORY: CTAB, no increased effort of breathing. ABDOMEN: Soft, nontender, nondistended. EXTREMITIES: No lower extremity edema, peripheral pulses are 2+ bilaterally. NEURO: No focal deficits. PSYCH: appropriate mood, affect. Relevant Lab Results Encounter Date: 05/31/22 ECG 12 lead Result Value Ventricular Rate 111 QRS DURATION 80 QT Interval 358 QTC CALCULATION(BAZETT) 486 R-Cache -70 T Wave Cache 22 Impression Atrial fibrillation with rapid ventricular response Left axis deviation Anteroseptal infarct (cited on or before 31-MAY-2022) Abnormal ECG When compared with ECG of 31-MAY-2022 20:29, No significant change was found No results found for: CKTOTAL, CKMB, CKMBINDEX, TROPONINI No echocardiogram results found for the past 12 months No nuclear medicine results found for the past 12 months Relevant Imaging Results ECG 12 lead Atrial fibrillation with rapid ventricular response Left axis deviation Anteroseptal infarct (cited on or before 31-MAY-2022) Abnormal ECG When compared with ECG of 31-MAY-2022 20:29, No significant change was found Assessment: Patrice Kang is a 56 y.o. male with no significant past medical history presented as a transfer from [facility] due to worsening exertional dyspnea. He does not follow-up with a physician outpatient, was recently found to have a new decrease in ejection fraction around 25% and atrial fibrillation. He was started on GDMT with Entresto and Coreg for the new onset HF and therapeutic Lovenox for atrial fibrillation. He is currently compensated, no signs of fluid overload. CXR shows concern for pneumonia, BNP 1002, lipid profile is normal, A1c is normal. Due to the new decrease in ejection fraction, an invasive cardiac approach is warranted. New onset systolic heart failure 25%, unknown etiology, NYHA class III Paroxysmal atrial fibrillation, ChadsVasc 2 Polysubstance abuse (tobacco use, alcohol abuse) Plan: Plan for FRANCISCA/DCCV today for rhythm control. Continue amiodarone load with 400 mg twice daily. Echocardiogram is pending. Plan for left and right heart cardiac catheterization tomorrow. N.p.o. at midnight. AF rates can get elevated. Can control with BB and alcohol withdrawal meds. He states his last drink was on . Continue GDMT including Coreg 6.25 mg twice daily, Entresto, Farxiga, Aldactone. Keysha Hernandez MD Trial Paralegal - PGY4 [facility] 06-03-2022 Note Hospital Medicine Daily Progress Note - 06/03/2022 9:59 AM; Room: [address] [place] [address] Admission: 05/31/2022 8:24 PM; Length of stay: 3 days THE HOSPITALIST TEAM PREFERS TO USE [employer] CHAT FOR COMMUNICATION 7AM-7PM. IF I DO NOT RESPOND WITHIN 15 MINUTES, PLEASE PAGE ME/CALL THROUGH THE PHARMACY TEACHER. FROM 7PM-7AM, PLEASE PAGE [phone](COVR) Code Status: Full Code Discharge Destination: home Expected Discharge: 2-3 days Overview Patient is seen for evaluation and management of new onset A-fib and CHF. Subjective seen today in his room, alert and in no acute distress. Denies any significant chest pain or SOB Physical Exam HENT: Head: Normocephalic. Mouth/Throat: Mouth: Mucous membranes are moist. Eyes: Extraocular Movements: Extraocular movements intact. Pupils: Pupils are equal, round, and reactive to light. Cardiovascular: Rate and Rhythm: regularly, irregular Pulmonary: Effort: Pulmonary effort is normal. Breath sounds: Normal breath sounds. Abdominal: General: Abdomen is flat. Palpations: Abdomen is soft. Musculoskeletal: General: Normal range of motion. Cervical back: Neck supple. Skin: General: Skin is warm. Neurological: General: No focal deficit present. Mental Status: He is alert and oriented to person, place, and time. Psychiatric: Mood and Affect: Mood normal. Visit Vitals BP 102/78 Pulse (!) 128 Temp 35.8 ???C (96.4 ???F) (Temporal) Resp 20 Intake/Output Summary (Last 24 hours) at 06/03/2022 0959 Last data filed at 06/02/20221957 Gross per 24 hour Intake 1200 ml Output -- Net 1200 ml Estimated body mass index is 24.24 kg/m??? as calculated from the following: Height as of this encounter: 1.702 m (5' 7 ). Weight as of this encounter: 70.2 kg (154 lb 12.2 oz). Active Inpatient Problems Principal Problem: Acute systolic heart failure (CMS/HCC) Active Problems: Atrial fibrillation (CMS/HCC) Assessment and Plan New onset CHFrEF New onset Atrial Fibrillation Active smoker Etoh use Heart failure pathway. Tele monitoring Monitor I's and O's, low-sodium diet. Continue current GDMT Patient currently on Lovenox full dose we will continue that Patient to undergo R&L cardiac catheterization today Echo result pending Appreciate cardiology input VTE Prophylaxis: Lovenox Scheduled Meds amiodarone, 400 mg, oral, BID with meals aspirin, 81 mg, oral, Daily with breakfast atorvastatin, 40 mg, oral, Nightly carvedilol, 6.25 mg, oral, BID with meals dapagliflozin, 10 mg, oral, Daily enoxaparin, 1 mg/kg, subcutaneous, BID folic acid, 1 mg, oral, Daily sacubitriL-valsartan, 1 tablet, oral, BID spironolactone, 25 mg, oral, Daily thiamine, 50 mg, oral, Daily Pertinent Investigations Hematology: Results from last 7 days Lab Units 05/31/22 2242 WBC AUTO 10*3/uL 7.85 HEMOGLOBIN g/dL 14.6 HEMATOCRIT % 43.7 MCV fL 98.4* PLATELETS AUTO 10*3/uL 213 Chemistry: Results from last 7 days Lab Units 05/31/22 2242 SODIUM mmol/L 138 POTASSIUM mmol/L 3.8 CHLORIDE mmol/L 105 CO2 mmol/L 24 BUN mg/dL 16 CREATININE mg/dL 1.17 GLUCOSE mg/dL 101* MAGNESIUM mg/dL 1.8* CALCIUM mg/dL 8.7 Results from last 7 days Lab Units 05/31/22 2242 AST U/L 17 ALT U/L 17 ALK PHOS U/L 77 BILIRUBIN TOTAL mg/dL 0.4 BILIRUBIN DIRECT mg/dL 0.1 Historical Values: (Includes values prior to this admission) Lab Results Component Value Date HDL 62 05/31/2022 LDL 64 05/31/2022 No results found for: [id number], IRON, TIBC, C3, C4, MELISA, CANCA, ASO, PSA, CEA, CA125, CA199, AFP, CA153 Imaging ECG 12 lead Atrial fibrillation with rapid ventricular response Left axis deviation Anteroseptal infarct (cited on or before 31-MAY-2022) Abnormal ECG When compared with ECG of 31-MAY-2022 20:29, No significant change was found Discharge Planning Discharge Planning Does the patient need discharge transport arranged?: No Signed Frank Navarrete MD [facility] Medicine 06/03/2022 9:59 AM [facility] 06-02-2022 Note Hospital Medicine Daily Progress Note - 06/02/2022 12:04 PM; Room: [address] [place], [place] [id number] Admission: 05/31/2022 8:24 PM; Length of stay: 2 days THE HOSPITALIST TEAM PREFERS TO USE [employer] CHAT FOR COMMUNICATION 7AM-7PM. IF I DO NOT RESPOND WITHIN 15 MINUTES, PLEASE PAGE ME/CALL THROUGH THE PHARMACY TEACHER. FROM 7PM-7AM, PLEASE PAGE [phone](COVR) Code Status: Full Code Discharge Destination: home Expected Discharge: 2-3 days Overview Patient is seen for evaluation and management of new onset A-fib and CHF. Subjective seen today in his room, alert and in no acute distress. Denies any significant chest pain or SOB Physical Exam HENT: Head: Normocephalic. Mouth/Throat: Mouth: Mucous membranes are moist. Eyes: Extraocular Movements: Extraocular movements intact. Pupils: Pupils are equal, round, and reactive to light. Cardiovascular: Rate and Rhythm: regularly, irregular Pulmonary: Effort: Pulmonary effort is normal. Breath sounds: Normal breath sounds. Abdominal: General: Abdomen is flat. Palpations: Abdomen is soft. Musculoskeletal: General: Normal range of motion. Cervical back: Neck supple. Skin: General: Skin is warm. Neurological: General: No focal deficit present. Mental Status: He is alert and oriented to person, place, and time. Psychiatric: Mood and Affect: Mood normal. Visit Vitals BP 130/83 Pulse (!) 114 Temp 36.4 ???C (97.6 ???F) (Temporal) Resp 18 Intake/Output Summary (Last 24 hours) at 06/02/2022 1204 Last data filed at 06/01/2022 1743 Gross per 24 hour Intake 720 ml Output -- Net 720 ml Estimated body mass index is 24.83 kg/m??? as calculated from the following: Height as of this encounter: 1.702 m (5' 7 ). Weight as of this encounter: 71.9 kg (158 lb 8.2 oz). Active Inpatient Problems Principal Problem: Acute systolic heart failure (CMS/HCC) Assessment and Plan New onset CHFrEF New onset Atrial Fibrillation Active smoker Etoh use Heart failure pathway. Tele monitoring Monitor I's and O's, low-sodium diet. Continue current GDMT Patient currently on Lovenox full dose we will continue that Patient might go for cardiac catheterization on Friday Appreciate cardiology input VTE Prophylaxis: Lovenox Scheduled Meds aspirin, 81 mg, oral, Daily with breakfast atorvastatin, 40 mg, oral, Nightly carvedilol, 6.25 mg, oral, BID with meals dapagliflozin, 5 mg, oral, Daily enoxaparin, 1 mg/kg, subcutaneous, BID folic acid, 1 mg, oral, Daily sacubitriL-valsartan, 1 tablet, oral, BID spironolactone, 25 mg, oral, Daily thiamine, 50 mg, oral, Daily Pertinent Investigations Hematology: Results from last 7 days Lab Units 05/31/22 2242 WBC AUTO 10*3/uL 7.85 HEMOGLOBIN g/dL 14.6 HEMATOCRIT % 43.7 MCV fL 98.4* PLATELETS AUTO 10*3/uL 213 Chemistry: Results from last 7 days Lab Units 05/31/22 2242 SODIUM mmol/L 138 POTASSIUM mmol/L 3.8 CHLORIDE mmol/L 105 CO2 mmol/L 24 BUN mg/dL 16 CREATININE mg/dL 1.17 GLUCOSE mg/dL 101* MAGNESIUM mg/dL 1.8* CALCIUM mg/dL 8.7 Results from last 7 days Lab Units 05/31/22 2242 AST U/L 17 ALT U/L 17 ALK PHOS U/L 77 BILIRUBIN TOTAL mg/dL 0.4 BILIRUBIN DIRECT mg/dL 0.1 Historical Values: (Includes values prior to this admission) Lab Results Component Value Date HDL 62 05/31/2022 LDL 64 05/31/2022 No results found for: [id number], IRON, TIBC, C3, C4, MELISA, CANCA, ASO, PSA, CEA, CA125, CA199, AFP, CA153 Imaging ECG 12 lead Atrial fibrillation Left anterior fascicular block Possible Anterior infarct (cited on or before 31-MAY-2022) Abnormal ECG When compared with ECG of 31-MAY-2022 20:29, (unconfirmed) QT has shortened Confirmed by LETI, ([id number]), fashion editor Imtiaz MEDRANO, SAHIL Zacarias ([id number]) on 06/01/2022 11:58:43 AM Discharge Planning Discharge Planning Does the patient need discharge transport arranged?: Maybe Signed Frank Navarrete MD [facility] Medicine 06/02/2022 12:04 PM [facility] 06-01-2022 Note Nutrition Consult ac knowledged for newly dx HF. Will provide diet education prior to discharge; note Attending has indicated pt will remain in-house until at least Friday for cardiac cath. [facility] 06-01-2022 Note Hospital Medicine Daily Progress Note - 06/01/2022 12:05 PM; Room: [address] [place], [place] [id number] Admission: 05/31/2022 8:24 PM; Length of stay: 1 days THE HOSPITALIST TEAM PREFERS TO USE [employer] CHAT FOR COMMUNICATION 7AM-7PM. IF I DO NOT RESPOND WITHIN 15 MINUTES, PLEASE PAGE ME/CALL THROUGH THE PHARMACY TEACHER. FROM 7PM-7AM, PLEASE PAGE [phone](COVR) Code Status: Full Code Discharge Destination: home Expected Discharge: 2-3 days Overview Patient is seen for evaluation and management of new onset A-fib and CHF. Subjective seen today in his room, alert and in no acute distress. Denies any chest pain per se Physical Exam HENT: Head: Normocephalic. Mouth/Throat: Mouth: Mucous membranes are moist. Eyes: Extraocular Movements: Extraocular movements intact. Pupils: Pupils are equal, round, and reactive to light. Cardiovascular: Rate and Rhythm: regularly, irregular Pulmonary: Effort: Pulmonary effort is normal. Breath sounds: Normal breath sounds. Abdominal: General: Abdomen is flat. Palpations: Abdomen is soft. Musculoskeletal: General: Normal range of motion. Cervical back: Neck supple. Skin: General: Skin is warm. Neurological: General: No focal deficit present. Mental Status: He is alert and oriented to person, place, and time. Psychiatric: Mood and Affect: Mood normal. Visit Vitals BP (!) 109/94 Pulse (!) 121 Temp 36.8 ???C (98.3 ???F) (Temporal) Resp 22 No intake or output data in the 24 hours ending 06/01/22 1205 Estimated body mass index is 24.96 kg/m??? as calculated from the following: Height as of this encounter: 1.702 m (5' 7 ). Weight as of this encounter: 72.3 kg (159 lb 6.3 oz). Active Inpatient Problems Principal Problem: Acute systolic heart failure (CMS/HCC) Assessment and Plan New onset CHFrEF New onset Atrial Fibrillation Active smoker Etoh use Heart failure pathway. Tele monitoring Monitor I's and O's, low-sodium diet. Continue current GDMT Patient currently on Lovenox full dose we will continue that Patient might go for cardiac catheterization on Friday Appreciate cardiology input VTE Prophylaxis: Lovenox Scheduled Meds aspirin, 81 mg, oral, Daily with breakfast atorvastatin, 40 mg, oral, Nightly carvedilol, 3.125 mg, oral, BID with meals dapagliflozin, 5 mg, oral, Daily enoxaparin, 1 mg/kg, subcutaneous, BID folic acid, 1 mg, oral, Daily sacubitriL-valsartan, 1 tablet, oral, BID thiamine, 50 mg, oral, Daily Pertinent Investigations Hematology: Results from last 7 days Lab Units 05/31/22 2242 WBC AUTO 10*3/uL 7.85 HEMOGLOBIN g/dL 14.6 HEMATOCRIT % 43.7 MCV fL 98.4* PLATELETS AUTO 10*3/uL 213 Chemistry: Results from last 7 days Lab Units 05/31/22 2242 SODIUM mmol/L 138 POTASSIUM mmol/L 3.8 CHLORIDE mmol/L 105 CO2 mmol/L 24 BUN mg/dL 16 CREATININE mg/dL 1.17 GLUCOSE mg/dL 101* MAGNESIUM mg/dL 1.8* CALCIUM mg/dL 8.7 Results from last 7 days Lab Units 05/31/22 2242 AST U/L 17 ALT U/L 17 ALK PHOS U/L 77 BILIRUBIN TOTAL mg/dL 0.4 BILIRUBIN DIRECT mg/dL 0.1 Historical Values: (Includes values prior to this admission) Lab Results Component Value Date HDL 62 05/31/2022 LDL 64 05/31/2022 No results found for: [id number], IRON, TIBC, C3, C4, MELISA, CANCA, ASO, PSA, CEA, CA125, CA199, AFP, CA153 Imaging ECG 12 lead Atrial fibrillation Left anterior fascicular block Possible Anterior infarct (cited on or before 31-MAY-2022) Abnormal ECG When compared with ECG of 31-MAY-2022 20:29, (unconfirmed) QT has shortened Confirmed by DR. LETI ([id number]), fashion editor Imtiaz MEDRANO, SAHIL Zacarias ([id number]) on 06/01/2022 11:58:43 AM Discharge Planning Discharge Planning Does the patient need discharge transport arranged?: No Signed Frank Navarrete MD Hospital Medicine 06/01/2022 12:05 PM [facility] 05-31-2022 Note Hospital Medicine History and Physical 05/31/2022 8:30 PM THE HOSPITALIST TEAM PREFERS TO USE [employer] CHAT FOR COMMUNICATION 7AM-7PM. IF I DO NOT RESPOND WITHIN 15 MINUTES, PLEASE PAGE ME/CALL THROUGH THE PHARMACY TEACHER. FROM 7PM-7AM, PLEASE PAGE [phone](COVR) Chief Complaint Direct transfer for new onset Afib and HF History of Present Illness Patrice Kang is an 56 y.o. male with no known significant past medical history, history of smoking and EtOH use, presents to the hospital today as a direct transfer from outside facility, [facility]. Patient initially presented at their facility with increased exertional dyspnea associated with midsternal chest pain without any radiation. Denies any nausea or sweating. Patient denies any weight gain, leg swelling, palpitations or otherwise. Patient describes he was doing well up until couple months ago when a few months ago he started to have dyspnea on exertion and difficulty doing all his activities. Patient has not seen a PCP or any physician in many years. No prior personal history of CHF CAD CVA or otherwise. Patient has significant family history of CAD with f both parents and siblings with history of CAD. Patient is an active smoker and drinks 6 beers per day. At outside facility, He underwent extensive work-up and was noted to be in A-fib RVR, new onset systolic heart failure with EF of 25%. He was started on Coreg, Entresto, Lovenox twice daily for anticoagulation. Case was discussed with cardiology service here for further evaluation and potential consideration of cardiac catheterization on Friday. Review of System and Physical Exam Physical Exam HENT: Head: Normocephalic. Mouth/Throat: Mouth: Mucous membranes are moist. Eyes: Extraocular Movements: Extraocular movements intact. Pupils: Pupils are equal, round, and reactive to light. Cardiovascular: Rate and Rhythm: Normal rate and regular rhythm. Pulmonary: Effort: Pulmonary effort is normal. Breath sounds: Normal breath sounds. Abdominal: General: Abdomen is flat. Palpations: Abdomen is soft. Musculoskeletal: General: Normal range of motion. Cervical back: Neck supple. Skin: General: Skin is warm. Neurological: General: No focal deficit present. Mental Status: He is alert and oriented to person, place, and time. Psychiatric: Mood and Affect: Mood normal. Review of Systems Constitutional: Positive for activity change. Respiratory: Positive for chest tightness and shortness of breath. Cardiovascular: Positive for chest pain. Negative for leg swelling. Gastrointestinal: Negative for abdominal distention, abdominal pain, constipation, diarrhea and nausea. All other systems reviewed and are negative. Problem List Patient Active Problem List Diagnosis Date Noted Acute systolic heart failure (CMS/HCC) 05/31/2022 Assessment and Plan New onset systolic HF New onset Atrial Fibrillation Active smoker Etoh use P- Admit to stepdown unit under hospital medicine service Heart failure pathway. Tele monitoring Monitor I's and O's, low-sodium diet. will not repeat echo as echo was completed at outside facility. clinically does not appear overloaded or otherwise. Continue to optimize GDMT w bb, enteresto, faxiga . Check LDL, check [id number] Cardiology team consultation. Potential plan for cath Friday per report. For A-fib, continue Coreg, continue Lovenox 1 mg/kg twice daily for anticoagulation. Cardiology consultation Encourage smoking cessation [facility] protocol for EtOH use. VTE Prophylaxis: Lovenox ----- Focus of this inpatient stay will remain on problems that need acute care setting for care. We will review available studies and will order additional labs, imaging and other studies as appropriate. As needed medicines are ordered as appropriate. VTE Prophylaxis will be ordered as appropriate. Please see above for management plan for individual hospital problems. Home medications are reviewed and will be continued as appropriate. Patient will be continued to be followed during this hospital stay by a member of [facility]. Past Medical History None prior to current known as above Past Surgical History Appendectomy Social History Social History Socioeconomic History Marital status: Single Spouse name: Not on file Number of children: Not on file Years of education: Not on file Highest education level: Not on file Occupational History Not on file Tobacco Use Smoking status: Not on file Smokeless tobacco: Not on file Substance and Sexual Activity Alcohol use: Not on file Drug use: Not on file Sexual activity: Not on file Other Topics Concern Not on file Social History Narrative Not on file Social Determinants of Health Financial Resource Strain: Not on file Food Insecurity: Not on file Transportation Needs: Not on file Physical Activity: Not on file Stress: Not on f (more content not included)... [facility] Summary Purpose Family History No Family History Records FoundNo Family History Records FoundNo Family History Records Found Advance Directives No Advanced Directives Records FoundNo Advanced Directives Records FoundNo Advanced Directives Records Found Additional Source Comments (unrecognized sect ion and content) No Status Records FoundNo Status Records FoundNo Status Records Found INFORMATION SOURCE (unrecogn ized section and content) DATE CREATED AUTHOR 12/17/2017 [facility] DATE CREATED AUTHOR AUTHOR'S ORGANIZ ATION 09/11/2022 [facility] DATE CREATED AUTHOR AUTHOR'S ORGANIZ ATION 04/08/2023 [facility] FOR RECORDS PERTAINING TO PATIENTS WHO ARE OR HAVE BEEN ENROLLED IN A CHEMICAL DEPENDENCY/SUBSTANCEABUSE PROGRAM, SOME INFORMATION MAY BE OMITTED. This clinical summary was aggregated from multiple sources. Caution should be exercised in using it in the provision of clinical care. This summary normalizes information from multiple sources, and as a consequence, information in this document may materially change the coding, format and clinical context of patient data. In addition, data may be omitted in some cases. CLINICAL DECISIONS SHOULD BE BASED ON THE PRIMARY CLINICAL RECORDS. [facility] [employer] [facility]. provides no warranty or guarantee of the accuracy or completeness of information in this document.
== END 2023-04-16 14:46 | disposition home or self-care (01) ==
LOC: CARD 14:46
PROVIDERS: PCP Nurse Practitioner; Visit Provider Internal Medicine Cardiovascular Disease
DX: I50.22 Chronic systolic (congestive) heart failure (principal)
CPT/HCPCS: 93306

== ENCOUNTER 2023-06-02 13:08 | Outpatient (OUT) | payer OTHER, SELFPAY ==
[2023-06-02 13:27] LABS: Basophils Absolute Auto 0.1 10^3/uL (0.0-0.1); Basophils Percent Auto 1.3 % (0.2-2.0); Eosinophils Absolute Auto 0.1 10^3/uL (0.0-0.7); Eosinophils Percent Auto 1.4 % (0.9-7.0); Hematocrit 42.8 % (42.0-54.0); Hemoglobin 14.2 g/dL (14.0-18.0); Immature Granulocytes Abs Auto 0.02 10^3/uL (0.00-0.03); Immature Granulocytes Pct Auto 0.3 % (0.0-0.5); Lymphocytes Absolute Auto 2.9 10^3/uL (1.2-3.8); Lymphocytes Percent Auto 38.6 % (20.5-60.0); Mean Corpuscular HGB Conc 33.2 g/dL (29.9-35.2); Mean Corpuscular Hemoglobin 32.9 pg (25.9-34.0); Mean Corpuscular Volume 99.1 fL (80.0-94.0); Mean Platelet Volume 9.9 fL (9.5-13.5); Monocytes Absolute Auto 0.7 10^3/uL (0.3-0.8); Monocytes Percent Auto 9.3 % (1.7-12.0); Neutrophils Absolute Auto 3.7 10^3/uL (1.4-6.5); Neutrophils Percent Auto 49.1 % (43.0-75.0); Platelet Count 240 10^3/uL (150-450); Red Blood Count 4.32 10^6/uL (4.70-6.10); Red Cell Distribution Width 12.2 % (11.0-15.0); White Blood Count 7.6 10^3/uL (4.0-11.0)
--- OUTSIDE RECORDS SUMMARY | 2023-06-02 13:29 | XMS_ITS | CCD ---
Author Name Unknown Address [address] [facility] [address] [place] [address] Organization [facility] Care Team Providers Care Senior Client Advisor Name Role Phone Provider, None Unavailable Unavailable [...] Unavailable HAY ., DR SEN Consulting Unavailable FAWWANeymar, SHAIKH Kasie Attending Unavailable Cristal Hinkle Consulting Unavailable FAWSHAIKH Kasie LUIS Consulting Unavailable BRIA OMALLEY Consulting Unavailable JOAN LOFTON Attending Unavailable ANTOLIN AYALA Referring Unavailable ISRAEL NAVARRETE Referring Unavailable SAMARA THIBODEAUX Attending Unavailable SAMARA THIBODEAUX Attending Unavailable JOAN LOFTON Attending Unavailable ANTOLIN AYALA Attending Unavailable JOAN LOFTON Attending Unavailable AVINASH, HANI Referring Unavailable GANGMICKNISEVERINO Referring Unavailab le GANGWANI, SEVERINO KIMBALL Referring Unavailab le CUHY, SIXTO Referring Unavailable GANGWANI, SEVERINO KIMBALL Admitting Unavailab le AHMED DAVID Attending Unavailable AHMED DAVID Referring Unavailable AHMED, DAVID Referring Unavailable Allergies Allergy Classification Reported Allergen(s) Allergy Type Date of Onset Reaction(s) Facility (1 source) No Known Medication Allergies; Translations: [No Known Medication Allergies] Propensity to adverse reactions to drug (disorder) [facility] Repository (1 source) ALLERGIES NOT ON FILE; Translations: [ALLERGIES NOT ON FILE] Propensity to adverse reactions (disorder) [facility] Repository Problems Active Problems Problem Classification Problem Date Documented Date Episodic/Chronic Alcohol-related disorders (1 source) Alcohol dependence, uncomplicated; Translations: [ALCOHOL DEPENDENCE UNCOMPLICATED] Onset: 06-04-2022 Chronic Cardiac dysrhythmias (9 sources) Unspecified atrial fibrillation; Translations: [Paroxysmal atrial fibrillation] Onset: 05-30-2022 Chronic Congestive heart failure; nonhypertensive (11 sources) Acute on chronic systolic (congestive) heart failure; Translations: [Acute systolic (congestive) heart failure] Onset: 05-31-2022 Chronic Coronary atherosclerosis and other heart disease (2 sources) Atherosclerotic heart disease of [place] coronary artery without angina pectoris; Translations: [Atherosclerotic heart disease of [place] coronary artery without angina pectoris] Onset: 07-02-2022 Chronic Substance-related disorders (3 sources) Nicotine dependence, cigarettes, uncomplicated; Translations: [Nicotine dependence, unspecified, uncomplicated] Onset: 06-04-2022 Chronic Unclassified (1 source) CONTACT W/AND (SUSP) EXPOS COVID-19; Translations: [CONTACT W/AND (SUSP) EXPOS COVID-19] Onset: 06-04-2022 Unclassified (2 sources) Other persistent atrial fibrillation; Translations: [Other persistent atrial fibrillation] Onset: 05-27-2023 Past or Other Problems Problem Classification Problem Date Documented Da te Episodic/Chronic Nonspecific chest pain (1 source) Other chest pain; Translations: [OTHER CHEST PAIN] Onset: 06-04-2022 Episodic Other aftercare (2 sources) Other terminal operator (current) drug therapy; Translations: [Other terminal operator (current) drug therapy] Onset: 11-08-2022 Episodic Results Test Name Value Interpretation Reference Range Facility [id number] 05-29-2023 [id number] ARRIVAL TIME 1100 HOLD ELIQUIS 06/02 NO MEDICATIONS TO TAKE DAY OF SURGERY PT AGREES TO GO TO [facility] BY 06/02, ORDERS FAXED TO [phone] ON 05/29 IF YOU ARE GOING HOME AFTER YOUR SURGERY OR PROCEDURE, FOR YOUR SAFETY, YOUR SURGERY WILL BE CANCELLED IF BOTH OF THE FOLLOWING ARE NOT AVAILABLE: An adult stud driver over the age of 18, that can receive information about your care after surgery, and drive you home. A responsible adult to stay with you for 24 hours in case of an emergency. Can be same as above. The highest risk of complications is within the first 24 hours after sedation/anesthesia. Nothing to eat or drink after midnight the night before surgery. This includes gum, candy, mints, and lozenges. No alcohol, marijuana, or tobacco products including vaping for 24 hours. Please brush your teeth; don't swallow the toothpaste or water. If you use dentures, wear them but do not use paste. Please leave any other removable dental hardware at home. Do not put in contact lenses. Do not wear perfume, make-up, nail kyrgyz, or lotions on the day of your surgery or procedure. Follow skin-prep/wipe instructions as below if required. Bring with you: *Insurance card *Photo ID *Medication list *Co-pay for visit/prescriptions If applicable: *Rescue inhalers *Green bracelet from lab *CPAP or BiPAP machine, if staying overnight *Any braces, splints, or equipment ordered preoperatively *Remote controls for implanted devices Leave at home: *Purse/Wallet/[place]- unless needed for co-pay *Cell phone (can leave with family/friend or place in locker if needed) *Jewelry (including piercings and wedding bands) *If not possible, ask the person who is waiting with you to keep them Children under the age of 12 will not be allowed into patient care areas. We will call you between 3pm and 4pm the day before your surgery to give you an arrival time. If you do not receive this call, have any questions, or need to make any changes, please call [phone]. Notify your surgeon if you develop any illness such as a cold, cough, fever, sore throat or vomiting between now and your surgery. Thank you for entrusting us with your care. [facility] Surgical Services Team Normal [facility] 36on 05-29-2023 36 Losartan 25mg daily, check bmp in 1 week after starting Normal [facility] Telephoneon 05-29-2023 Telephone [id number] Shashi Kang E 1965 M Date Provider Department Center 05/29/2023 Nikkie5-JOHAN MORTON CHANDA [facility] Family History Problem Relation Age of Onset Hypertension Mother Hypertension Father Coronary artery disease Sister Family Status - Relation Status Age at Mother Father Sister Normal [facility] Office Visiton 05-27-2023 Follow-up visit [id number] Shashi Kang E 1965 M Date Provider Department Center 05/27/2023 Sharifa6-BERTINRODNEYJOAN Hayes CHANDA [facility] Family History Problem Relation Age of Onset Hypertension Mother Hypertension Father Coronary artery disease Sister Family Status - Relation Status Age at Mother Father Sister Level of Service:60692 SD OFFICE/OUTPATIENT ESTABLISHED HIGH MDM 40 MIN Normal [facility] CTA CHEST W AND/OR WO IV CON TRASTon 05-26-2023 CTA CHEST W AND/OR WO IV CONTRAST CT CARDIAC MORPHOLOGY WITH IV CONTRAST Clinical Indication: 57 year old male for assessment ablation of pulmonary vein ostia. Paroxysmal A. fib. Comparison studies: 9 Technique: Multidetector computerized tomography cardiac CT evaluation was obtained using retrospective ECG gating. Imaging was performed from the level above the aortic arch to the level of the hemidiaphragms. 3-D post-processing techniques, including multiplanar reconstruction; maximal intensity projection and volume rendering were performed, under concurrent physician supervision on an independent workstation. From the postprocessed images, transaxial measurements of the pulmonary vein ostia were obtained. Automated exposure control was utilized. Contrast: The study was performed with 100 mL of Omnipaque 350 contrast material administered intravenously. Findings: Pulmonary Vein Anatomy: There are 3 pulmonary veins entering the left atrium; 2 right pulmonary veins and single left pulmonary , trauma. There is no evidence of pulmonary vein stenosis. Left Atrium: The left atrium is mildly to and normally opacified. The left atrial appendage is normally opacified. IVC anomalies absent Mild coronary artery calcifications. Extracardiac findings: Moderate right greater than left upper lung paraseptal emphysematous change. No pneumothorax. The central airways patent. Dependent changes in both lungs. Degenerative changes of the thoracic spine. Region of sclerosis of the right lateral ninth rib likely related to an incidental fibro-osseous lesion. IMPRESSION: Impression: 1. , Left pulmonary vein trunk. Classical right pulmonary venous anatomy. 2. Normal opacification of the mildly dilated left atrium and left atrial appendage. All CT scans at this facility use dose modulation, iterative reconstruction, and/or weight based dosing when appropriate to reduce radiation dose to as low as reasonably achievable. Electronically signed: Francisco Howell. [facility] Comment on above: Order Comment: Please complete prior to Jun 04 Letter (Out)on 05-09-2023 Letter (Out) [id number] Shashi Kang E 1965 [facility] Provider Department Center 05/09/2023 Randall-BRIA OMALLEY CHANDA [facility] Family History Problem Relation Age of Onset Hypertension Mother Hypertension Father Coronary artery disease Sister Family Status - Relation Status Age at Mother Father Sister Normal [facility] Abstracton 04-16-2023 Abstract [id number] Shashi Kang terrence E 1965 [facility] Provider Department Center 04/16/2023 ANTOLIN KULKARNI CHANDA [facility] Family History Problem Relation Age of Onset Hypertension Mother Hypertension Father Coronary artery disease Sister Family Status - Relation Status Age at Mother Father Sister Normal [facility] Orders Onlyon 04-04-2023 Orders Only [id number] Shashi Kang E 1965 [facility] Provider Department Center 04/04/2023 JOHAN MILES CHANDA [facility] Family History Problem Relation Age of Onset Hypertension Mother Hypertension Father Coronary artery disease Sister Family Status - Relation Status Age at Mother Father Sister Normal [facility] Prep for Procedureon 023 Prep for Procedure [id number] Patrice Kang 1965 [facility] Provider Department Center 04/04/2023 Javier-[facility]AL [facility] Family History Problem Relation Age of Onset Hypertension Mother Hypertension Father Coronary artery disease Sister Family Status - Relation Status Age at Mother Father Sister Normal [facility] Office Visiton 04-01-2023 Follow-up visit [id number] Shashi Kang terrence E 1965 [facility] Provider Department Center 04/01/2023 241-ANTOLIN AYALA [facility] Family History Problem Relation Age of Onset Hypertension Mother Hypertension Father Coronary artery disease Sister Family Status - Relation Status Age at Mother Father Sister Level of Service:73580 SD OFFICE/OUTPATIENT NEW MODERATE MDM 45-59 MINUTES Normal [facility] Office Visiton 11-08-2022 Follow-up visit [id number] Shashi Kang E 1965 M Date Provider Department Center 11/08/2022 JOAN HERNANDEZ Family History Problem Relation Age of Onset Hypertension Mother Hypertension Father Coronary artery disease Sister Family Status - Relation Status Age at Mother Father Sister Level of Service:97350 SD OFFICE/OUTPATIENT ESTABLISHED MOD MDM 30-39 MIN Normal [facility] Orders Onlyon 09-27-2022 Orders Only [id number] Shashi Kang E 1965 M Date Provider Department Center 09/27/2022 JOHAN MILES Family History Problem Relation Age of Onset Hypertension Mother Hypertension Father Family Status - Relation Status Age at Mother Father Normal [facility] Office Visiton 09-24-2022 Follow-up visit [id number] Shashi Kang E 1965 M Date Provider Department Center 09/24/2022 JOAN HERNANDEZ Family History Problem Relation Age of Onset Hypertension Mother Hypertension Father Family Status - Relation Status Age at Mother Father Level of Service:19378 SD OFFICE/OUTPATIENT ESTABLISHED MOD MDM 30-39 MIN Normal [facility] ECHOCARDIO M/2D COMPLETEon 0 09-11-2022 ECHOCARDIO M/2D COMPLETE Patient: PATRICE KANG Exam Date: 09/11/2022 : 1965 Gender:M 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 on 09/11/2022 at 19:07 [facility] 37on 07-02-2022 37 -Decrease Carvedilol to 3.125 mg twice a day Normal [facility] Office Visiton 07-02-2022 Follow-up visit [id number] Shashi Kang 1965 Date Provider Department [place] 07/02/2022 [id number] THIBODEAUX [facility] Family History Problem Relation Age of Onset Hypertension Mother Hypertension Father Family Status - Relation Status Age at Mother Father Level of Service:77011 SD OFFICE/OUTPATIENT ESTABLISHED MOD MDM 30-39 MIN Reason for Visit and Comments: Congestive Heart Failure [127] Atrial Fibrillation [80] Coronary Artery Disease [187] Normal [facility] BNPon 06-12-2022 Natriuretic peptide B (Bld) [Mass/Vol] 1166.0 pg/mL Critically high <=900.0 [facility] Comment on above: Performed By: #### HSTROPN #### [facility] [address] [place] [address] Dr. Travis Anthony PROF 14(COMP METB)on 023 Albumin [Mass/Vol] 3.2 g/dL Critically low 3.4-5.0 [facility] Comment on above: Performed By: #### HSTROPN #### [facility] [address] [address] [address] Travis Anthony Albumin/Globuli n [Mass ratio] 1.0 {ratio} Normal [facility] Comment on above: Performed By: #### HSTROPN #### [facility] [address] [address] [address] Travis Anthony ALP [Catalytic activity/Vol] 59 U/L Normal 46-116 [facility] Comment on above: Performed By: #### HSTROPN #### [facility] [address] [address] [address] Travis Anthony ALT [Catalytic activity/Vol] 25 U/L Normal 16-63 [facility] Comment on above: Performed By: #### HSTROPN #### [facility] [address] [address] [address] Travis Anthony Anion gap [Moles/Vol] 13.4 mmol/L Normal [facility] Comment on above: Performed By: #### HSTROPN #### [facility] [address] [place] [address] Dr. Travis Anthony AST [Catalytic activity/Vol] 12 U/L Critically low 15-37 [facility] Comment on above: Performed By: #### HSTROPN #### [facility] [address] [address] [address] Travis Anthony Bilirubin [Mass/Vol] 0.2 mg/dL Normal 0.2-1.0 [facility] Comment on above: Performed By: #### HSTROPN #### [facility] [address] [address] [address] Travis Anthony Calcium [Mass/Vol] 8.9 mg/dL Normal 8.5-10.1 [facility] Comment on above: Performed By: #### HSTROPN #### [facility] [address] [address] [address] Travis Anthony Chloride [Moles/Vol] 105 mmol/L Normal 98-107 [facility] Comment on above: Performed By: #### HSTROPN #### [facility] [address] [address] [address] Travis Anthony CO2 [Moles/Vol] 24.1 mmol/L Normal 21.0-32.0 [facility] Comment on above: Performed By: #### HSTROPN #### [facility] [address] [address] [address] Travis Anthony Creatinine [Mass/Vol] 1.27 mg/dL Normal 0.70-1.30 [facility] Comment on above: Performed By: #### HSTROPN #### [facility] [address] [address] [address] Travis Anthony EGFR-AF CENTRAL AFRICAN >60 Normal >=60 [facility] Comment on above: Performed By: #### HSTROPN #### [facility] [address] [address] [address] Travis Anthony EGFR-NON AF CENTRAL AFRICAN 59 mL/min/1.73m2 Critically low >=60 [facility] Comment on above: Performed By: #### HSTROPN #### [facility] [address] [address] [address] Travis Anthony Globulin (S) [Mass/Vol] 3.3 g/dL Normal [facility] Comment on above: Performed By: #### HSTROPN #### [facility] [address] [address] [address] Travis Anthony Glucose [Mass/Vol] 149 mg/dL Critically high 74-106 [facility] Comment on above: Performed By: #### HSTROPN #### [facility] [address] [address] [address] Travis Anthony Potassium [Moles/Vol] 4.5 mmol/L Normal 3.5-5.1 [facility] Comment on above: Performed By: #### HSTROPN #### [facility] [address] [address] [address] Travis Anthony Protein [Mass/Vol] 6.5 g/dL Normal 6.4-8.2 [facility] Comment on above: Performed By: #### HSTROPN #### [facility] [address] [address] [address] Travis Anthony Sodium [Moles/Vol] 138 mmol/L Normal 136-145 [facility] Comment on above: Performed By: #### HSTROPN #### [facility] [address] [address] [address] Travis Anthony Urea nitrogen [Mass/Vol] 15.0 mg/dL Normal 7.0-18.0 [facility] Comment on above: Performed By: #### HSTROPN #### [facility] [address] [address] [address] Travis Anthony Urea nitrogen/Creati nine [Mass ratio] 11.8 mg/mg Normal [facility] Comment on above: Performed By: #### HSTROPN #### [facility] [address] [place] [address] Dr. Travis Anthony 37on 06-11-2022 37 -Call when you get h ome and provide us a list of the medications you are taking -Get blood work today Normal [facility] CBC AUTO DIFFon 06-11-2022 BASO # 0.1 103/ul Normal 0.0-0.1 [facility] Comment on above: Performed By: #### HSTROPN #### [facility] [address] [place] [address] Dr. Travis Anthony Basophils/100 WBC (Bld) 1.8 % Normal 0.2-2.0 [facility] Comment on above: Performed By: #### HSTROPN #### [facility] [address] [place] [address] Dr. Travis Anthony EO # 0.2 103/ul Normal 0.0-0.7 [facility] Comment on above: Performed By: #### HSTROPN #### [facility] [address] [place] [address] Dr. Travis Anthony Eosinophils/100 WBC (Bld) 4.0 % Normal 0.9-7.0 [facility] Comment on above: Performed By: #### HSTROPN #### [facility] [address] [place] [address] Dr. Travis Anthony Erythrocyte distribution width (RBC) [Ratio] 12.9 % Normal 11.0-15.0 [facility] Comment on above: Performed By: #### HSTROPN #### [facility] [address] [place] [address] Dr. Travis Anthony Hematocrit (Bld) [Volume fraction] 50.0 % Normal 42.0-54.0 [facility] Comment on above: Performed By: #### HSTROPN #### [facility] [address] [place] [address] Dr. Travis Anthony Hemoglobin (Bld) [Mass/Vol] 16.9 g/dL Normal 14.0-18.0 [facility] Comment on above: Performed By: #### HSTROPN #### [facility] [address] [place] [address] Dr. Travis Anthony IG # 0.01 10e3/ul Normal 0.00-0.03 [facility] Comment on above: Performed By: #### HSTROPN #### [facility] [address] [place] [address] Dr. Travis Anthony IG % 0.2 % Normal 0.0-0.5 [facility] Comment on above: Performed By: #### HSTROPN #### [facility] [address] [place] [address] Dr. Travis Anthony LYMPH # 2.3 103/ul Normal 1.2-3.8 [facility] Comment on above: Performed By: #### HSTROPN #### [facility] [address] [place] [address] Dr. Travis Anthony Lymphocytes/100 WBC (Bld) 39.3 % Normal 20.5-60.0 [facility] Comment on above: Performed By: #### HSTROPN #### [facility] [address] [place] [address] Dr. Travis Anthony MANUAL DIFF REQ NO Normal [facility] Comment on above: Performed By: #### HSTROPN #### [facility] [address] [place] [address] Dr. Travis Anthony MCH (RBC) [Entitic mass] 32.8 pg Normal 25.9-34.0 [facility] Comment on above: Performed By: #### HSTROPN #### [facility] [address] [place] [address] Dr. Travis Anthony MCHC (RBC) [Mass/Vol] 33.8 g/dL Normal 29.9-35.2 [facility] Comment on above: Performed By: #### HSTROPN #### [facility] [address] [place] [address] Dr. Travis Anthony MCV (RBC) [Entitic vol] 96.9 fL Critically high 80.0-94.0 [facility] Comment on above: Performed By: #### HSTROPN #### [facility] [address] [place] [address] Dr. Travis Anthony MONO # 0.6 103/ul Normal 0.3-0.8 [facility] Comment on above: Performed By: #### HSTROPN #### [facility] [address] [place] [address] Dr. Travis Anthony Monocytes/100 WBC (Bld) 9.7 % Normal 1.7-12.0 [facility] Comment on above: Performed By: #### HSTROPN #### [facility] [address] [place] [address] Dr. Travis Anthony NEUT # 2.7 103/ul Normal 1.4-6.5 [facility] Comment on above: Performed By: #### HSTROPN #### [facility] [address] [place] [address] Dr. Travis Anthony Neutrophils/100 WBC (Bld) 45.0 % Normal 43.0-75.0 [facility] Comment on above: Performed By: #### HSTROPN #### [facility] [address] [place] [address] Dr. Travis Anthony Platelet mean volume (Bld) [Entitic vol] 10.9 fL Normal 9.5-13.5 [facility] Comment on above: Performed By: #### HSTROPN #### [facility] [address] [place] [address] Dr. Travis Anthony PLT 293 103/ul Normal 150-450 [facility] Comment on above: Performed By: #### HSTROPN #### [facility] [address] [address] [address] Travis Anthony RBC 5.16 106/ul Normal 4.70-6.10 [facility] Comment on above: Performed By: #### HSTROPN #### [facility] [address] [place], [place] [address] Dr. Travis Anthony WBC 6.0 103/ul Normal 4.0-11.0 [facility] Comment on above: Performed By: #### HSTROPN #### [facility] [address] [address] [address] Travis Anthony Follow-Upon 06-11-2022 Follow-Up [id number] Shashi Kang E 1965 M Date Provider Department Center 06/11/2022 SAMARA JOHNS [facility] Family History Problem Relation Age of Onset Hypertension Mother Hypertension Father Family Status - Relation Status Age at Mother Father Level of Service:03699 SD OFFICE/OUTPATIENT ESTABLISHED MOD MDM 30-39 MIN Reason for Visit and Comments: Atrial Fibrillation [80] Congestive Heart Failure [127] Normal [facility] Orders Onlyon 06-07-2022 Orders Only [id number] Shashi Kang 1965 Date Provider Department Center 06/07/2022 BRIA DAMIAN MC CARD [facility] No family history on file Normal [facility] 3006-06-2022 30 Problem: Respiratory - Adult Goal: Achieves [...] Absence of cardiac dysrhythmias or at baseline 06/06/2022 0835 by Aysha Gates RN Outcome: Progressing Flowsheets (Taken 06/06/2022 0800) Absence of cardiac dysrhythmias or at baseline: Monitor cardiac rate and rhythm Assess for signs of decreased cardiac output The patient is Moderately Stable - Low risk of patient condition declining or worsening The patient's goals for the shift include rest The clinical goals for the shift include VSS Normal [facility] 30 Problem: Heart Failu re diagnosis knowledge [...] goals for the shift include VSS Normal [facility] ANESon 06-06-2022 ANES Attestation signed by Antolin [...] Information Date/Time: 06/06/22 1230 Procedure: Cardioversion/defibrillation Location: [facility] TELEPHOTO INSTALL[facility] HOLDING ROOM / [facility] (Cath) Providers: Eddi Simms [...] consented to blood products. Additional Equipment Requests [facility] HPon 06-06-2022 HP H&P reviewed. The sohan angel was examined and there are no changes to the H&P. [facility] 06-05-2022 30 The patient is Moder ately Stable - Low risk of patient condition declining or worsening The patient's goals for the shift include Go Home The clinical goals for the shift include Rest and comfort [facility] 30 The patient is Moder ately Stable [...] dysrhythmias or at baseline Outcome: Progressing Normal [facility] HEPARIN LEVELon 06-05-2022 HEPARIN UNFRACTIONATED (U/ML) IN PPP BY CHROMOGENIC METHOD 0.67 IU/mL Normal 0.3-0.7 [facility] Comment on above: Result Comment: Rivaroxaban and Apixaban will interfere with the anti Xa assay used to monitor UFH and LMWH. Performed By: #### L [id number] ####[facility] ([employer] [employer])[address] [place] [address] HEPARIN UNFRACTIONATED (U/ML) IN PPP BY CHROMOGENIC METHOD 0.18 IU/mL Low 0.3-0.7 [facility] Comment on above: Result Comment: Rivaroxaban and Apixaban will interfere with the anti Xa assay used to monitor UFH and LMWH. Performed By: #### L [id number] #### [facility] ([employer]) [address] [place] [address] PLATELET COUNTon 06-05-2022 PLATELETS (10*3/UL) IN BLOOD AUTOMATED COUNT 245 10*3/uL Normal 150-400 [facility] Comment on above: Order Comment: Platelet count every othe r day on days 2-14 of heparin infusion for routine HIT surveillance. Performed By: #### L [id number] ####[facility] ([facility])[address] [place] [address] 30on 06-04-2022 30 The patient is Moder ately Stable - Low risk of patient condition declining or worsening The patient's goals for the shift include sleep/comfort The clinical goals for the shift include NPO at 0000 Normal [facility] ANESon 06-04-2022 ANES Attestation signed by Sahil [...] 06/04/22 1330 Procedure: CARDIOVERSION / DEFIBRILLATION Location: [facility] TELEPHOTO [facility]STALLER HOLDING ROOM / [facility] (Cath) Providers: Sahil Medrano MD [...] fellow and attending. Additional Equipment Requests Normal [facility] APTTon 06-04-2022 ACTIVATED PARTIAL THROMBOPLASTIN TIME IN PPP BY COAGULATION ASSAY 35.2 Seconds High 25.0-35.0 [facility] Comment on above: Order Comment: Baseline aPTT before init iating heparin infusion. Performed By: #### L [id number] #### [facility] (BEAKER) [address] [place] [address] BASIC METABOLIC PANELon 02-0 Anion gap [Moles/Vol] 8 mmol/L Normal 7-20 [facility] Comment on above: Performed By: #### [id number] #### [facility] ([facility]) [address] [place] [address] Calcium [Mass/Vol] 8.8 mg/dL Normal 8.6-10.3 [facility] Comment on above: Performed By: #### [id number] #### [facility] ([facility]) [address] [place] [address] Chloride [Moles/Vol] 110 mmol/L High 98-107 [facility] Comment on above: Performed By: #### [id number] #### [facility] [address] [place] [address] CO2 [Moles/Vol] 21 mmol/L Normal 21-31 [facility] Comment on above: Performed By: #### [id number] #### [facility] ([facility]) [address] [place] [address] Creatinine [Mass/Vol] 1.18 mg/dL Normal 0.70-1.30 [facility] Comment on above: Performed By: #### [id number] #### [facility] ([facility]) [address] [place] [address] GLOMERULAR FILTRATION RATE ML/MIN/1.73 SQ M.PREDICTED 69.1 mL/min/1.73m*2 Normal >60.0 [facility] Comment on above: Result Comment: The [facility]???s estimated glomerular filtration rate (eGFR) will no [...] group of individuals. Performed By: #### L [id number] #### [facility] ([facility]) [address] [place] [address] Glucose [Mass/Vol] 92 mg/dL Normal 70-100 [facility] Comment on above: Performed By: #### [id number] #### [facility] ([facility]) [address] [place] [address] Potassium [Moles/Vol] 4.7 mmol/L Normal 3.5-5.1 [facility] Comment on above: Performed By: #### [id number] #### [facility] ([facility]) [address] [place] [address] Sodium [Moles/Vol] 139 mmol/L Normal 136-145 [facility] Comment on above: Performed By: #### [id number] #### [facility] ([facility]) [address] [place] [address] Urea nitrogen [Mass/Vol] 16 mg/dL Normal 7-25 [facility] Comment on above: Performed By: #### [id number] #### [facility] ([facility]) [address] [place] [address] UREA NITROGEN/CREATI NINE (MASS RATIO) IN SER/PLAS 13.56 Normal [facility] Comment on above: Performed By: #### [id number] #### [facility] ([facility]) [address] [place] [address] HEMOGLOBIN AND HEMATOCRIT, B LOODon 06-04-2022 Hematocrit (Bld) [Volume fraction] 48.7 % Normal 39.0-55.0 [facility] Comment on above: Performed By: #### [id number] #### [facility] ([facility]) [address] [place] [address] Hemoglobin (Bld) [Mass/Vol] 16.2 g/dL Normal 13.0-17.0 [facility] Comment on above: Performed By: #### [id number] #### [facility] (BEAK[facility]) [address] [place] [address] HEPARIN LEVELon 06-04-2022 HEPARIN UNFRACTIONATED (U/ML) IN PPP BY CHROMOGENIC METHOD 0.22 IU/mL Low 0.3-0.7 [facility] Comment on above: Order Comment: Check anti-Xa level every 6 hours while on heparin infusion, or per protocol. Result Comment: [place] roxaban and Apixaban will interfere with the anti Xa assay used to monitor UFH and LMWH. Performed By: #### L [id number] #### [facility] ([facility]) [address] [place] [address] HPon 06-04-2022 HP H&P reviewed. The sohan angel was examined and there are no changes to the H&P. Normal [facility] HP Attestation signed by Sahil Medrano MD [...] are no changes to the H&P. Normal [facility] NURSNOTEon 06-04-2022 NURSNOTE Pt was walking the h alls and appeared upset. I asked the patient if everything was okay and got no response. Patient then stated I want to leave, the doctors here never talked to me after my procedure. I have no idea what is going on. I called Tracy Walker @ 19:57 and explained what was going [...] is watching tv. Meds were passed at 0 and patient was happier. Will continue to monitor for any adverse effects and the cath site. RANDI Hinkle RN, BS Normal [facility] PLATELET COUNTon 06-04-2022 PLATELETS (10*3/UL) IN BLOOD AUTOMATED COUNT 269 10*3/uL Normal 150-400 [facility] Comment on above: Order Comment: Baseline platelet count b efore any heparin given. May discontinue if platelet count already obtained today, or if heparin already administered. Performed By: #### L [id number] #### [facility] ([facility]AKER) [address] [place] [address] 30on 06-03-2022 30 The patient is Moder [...] dysrhythmias or at baseline Outcome: Progressing Normal [facility] 30 The patient is Moder ately Stable [...] the next 3 months Outcome: Progressing Normal [facility] 30 The patient is Moder ately Stable [...] educate patient on the plan of care. [facility] CONSULTon 06-03-2022 CONSULT Adult Nutrition Asse ssment: Name: Patrice Kang Date: 1965 Date of Visit: 06/03/22 Admission Dx: Acute systolic heart failure (CMS/HCC) [I50.21] Reason for assessment: MD referral HF [...] 16 05/31/20222241 CREATININE 1.17 05/31/20222 NA 138 05/31/20222241 K 3.8 05/31/20222241 MG 1.8 (L) 05/31/20222241 HGBA1C 5.3 05/31/20222 HGB 14.6 05/31/20222 WBC 7.85 05/31/2022 2242 CHOL 126 05/31/2022 2242 HDL 62 05/31/20222241 I/O: Intake/Output Summary (Last 24 hours) at 06/03/2022 1040 Last data filed at 06/02/2022 1958 Gross per 24 hour Intake 1200 ml [...] 75% meals and compliance w/ MNT Normal [facility] 30on 06-02-2022 30 The patient is Moder [...] the next 3 months Outcome: Progressing Normal [facility] CONSULTon 06-02-2022 CONSULT Attestation signed by Antolin [...] abuse and alcohol use was transferred to [facility] from [facility] due to increased exertional dyspnea [...] 25 99 % -- 06/01/22 2200 (!) 118/94 -- -- (!) 122 (!) 27 95 % -- 06/01/22 2100 (!) 112/94 -- -- 88 18 98 % -- [...] 92 QT Interval 382 QTC CALCULATION(BAZETT) 451 R-[place] -56 T Wave [place] 70 Impression Atrial fibrillation Left anterior fascicular block Possible Anterior infarct (cited on or before 31-MAY-2022) (more content not included)... Normal [facility] HPon 06-02-2022 HP Attestation signed by Antolin Ayala MD at [...] abuse and alcohol use was transferred to [facility] from [facility] due to increased exertional dyspnea [...] 25 99 % -- 06/01/22 2200 (!) 118/94 -- -- (!) 122 (!) 27 95 % -- 06/01/22 2100 (!) 112/94 -- -- 88 18 98 % -- [...] 92 QT Interval 382 QTC CALCULATION(BAZETT) 451 R-[place] -56 T Wave [place] 70 Impression Atrial fibrillation Left anterior fascicular block Possible Anterior infarct (cited on or before 31-MAY-2022) (more content not included)... Normal [facility] 30on 06-01-2022 30 The patient is Moder [...] the next 3 months Outcome: Progressing Normal [facility] B-TYPE NATRIURETIC PEPTIDEon 06-01-2022 Natriuretic peptide B (Bld) [Mass/Vol] 1002 pg/mL High 0-100 [facility] Comment on above: Performed By: #### [id number] #### [facility] ([facility]) [address] [place] [address] BASIC METABOLIC PANELon Anion gap [Moles/Vol] 9 mmol/L Normal 7-20 [facility] Comment on above: Performed By: #### [id number] #### [facility] ([facility]) [address] [place] [address] Calcium [Mass/Vol] 8.7 mg/dL Normal 8.6-10.3 [facility] Comment on above: Performed By: #### [id number] #### [facility] [address] [place] [address] Chloride [Moles/Vol] 105 mmol/L Normal 98-107 [facility] Comment on above: Performed By: #### [id number] #### [facility] ([facility]) [address] [place] [address] CO2 [Moles/Vol] 24 mmol/L Normal 21-31 [facility] Comment on above: Performed By: #### [id number] #### [facility] ([facility]) [address] [place] [address] Creatinine [Mass/Vol] 1.17 mg/dL Normal 0.70-1.30 [facility] Comment on above: Performed By: #### [id number] #### [facility] ([facility]) [address] [place] [address] GLOMERULAR FILTRATION RATE ML/MIN/1.73 SQ M.PREDICTED 69.8 mL/min/1.73m*2 Normal >60.0 [facility] Comment on above: Result Comment: The [facility]???s estimated glomerular filtration rate (eGFR) will no [...] group of individuals. Performed By: #### L [id number] #### [facility] ([facility]) [address] [place] [address] Glucose [Mass/Vol] 101 mg/dL High 70-100 [facility] Comment on above: Performed By: #### [id number] #### [facility] ([facility] [address] [place] [address] Potassium [Moles/Vol] 3.8 mmol/L Normal 3.5-5.1 [facility] Comment on above: Performed By: #### [id number] #### [facility] ([facility]) [address] [place] [address] Sodium [Moles/Vol] 138 mmol/L Normal 136-145 [facility] Comment on above: Performed By: #### [id number] #### [facility] ([facility]) [address] [place] [address] Urea nitrogen [Mass/Vol] 16 mg/dL Normal 7-25 [facility] Comment on above: Performed By: #### [id number] #### [facility] ([facility]) [address] [place] [address] UREA NITROGEN/CREATI NINE (MASS RATIO) IN SER/PLAS 13.68 Normal [facility] Comment on above: Performed By: #### [id number] #### [facility] ([facility]) [address] [place] [address] CBC WITH AUTO DIFFERENTIALon 06-01-2022 Basophils (Bld) [#/Vol] 0.09 10*3/uL Normal 0.00-0.20 [facility] Comment on above: Performed By: #### [id number] #### [facility] ([facility]) [address] [place] [address] Basophils/100 WBC (Bld) 1.1 % High 0.0-1.0 [facility] Comment on above: Performed By: #### [id number] #### [facility] ([facility]) [address] [place] [address] Eosinophils (Bld) [#/Vol] 0.15 10*3/uL Normal 0.00-0.50 [facility] Comment on above: Performed By: #### [id number] #### [facility] [address] [place] [address] Eosinophils/100 WBC (Bld) 1.9 % Normal 0.0-6.0 [facility] Comment on above: Performed By: #### [id number] #### [facility] ([facility]AK[facility]) [address] [place] [address] Erythrocyte distribution width (RBC) [Ratio] 13.4 % Normal 11.5-15.0 [facility] Comment on above: Performed By: #### [id number] #### [facility] [address] [place] [address] ERYTHROCYTE MEAN CORPUSCULAR HEMOGLOBIN CONCENTRATION (G/DL) BY AUTOMATED 33.4 g/dL Normal 32.0-35.0 [facility] Comment on above: Performed By: #### [id number] #### [facility] ([facility]) [address] [place] [address] Hematocrit (Bld) [Volume fraction] 43.7 % Normal 39.0-55.0 [facility] Comment on above: Performed By: #### [id number] #### [facility] ([facility]) [address] [place] [address] Hemoglobin (Bld) [Mass/Vol] 14.6 g/dL Normal 13.0-17.0 [facility] Comment on above: Performed By: #### [id number] #### [facility] ([facility]) [address] [place] [address] Immature granulocytes (Bld) [#/Vol] 0.02 10*3/uL Normal 0.00-0.20 [facility] Comment on above: Performed By: #### [id number] #### [facility] ([facility]) [address] [place] [address] Immature granulocytes/10 0 WBC (Bld) 0.3 % Normal 0.0-1.0 [facility] Comment on above: Performed By: #### [id number] #### [facility] ([facility]ER) [address] [place] [address] Lymphocytes (Bld) [#/Vol] 3.33 10*3/uL Normal 1.20-4.00 [facility] Comment on above: Performed By: #### [id number] #### [facility] ([facility]ER) [address] [place] [address] Lymphocytes/100 WBC (Bld) 42.4 % Normal 20.0-45.0 [facility] Comment on above: Performed By: #### [id number] #### [facility] (BE[facility]ER) [address] [place] [address] MCH (RBC) [Entitic mass] 32.9 pg Normal 27.0-33.0 [facility] Comment on above: Performed By: #### [id number] #### [facility] (BEAKER) [address] [place] [address] MCV (RBC) [Entitic vol] 98.4 fL High 82.0-98.0 [facility] Comment on above: Performed By: #### [id number] #### [facility] (BEAKER) [address] [place] [address] Monocytes (Bld) [#/Vol] 0.81 10*3/uL Normal 0.10-1.00 [facility] Comment on above: Performed By: #### [id number] #### [facility] (BEAKER) [address] [place] [address] Monocytes/100 WBC (Bld) 10.3 % Normal 5.0-12.0 [facility] Comment on above: Performed By: #### [id number] #### [facility] ([facility]) [address] [place] [address] Neutrophils (Bld) [#/Vol] 3.45 10*3/uL Normal 1.60-7.60 [facility] Comment on above: Performed By: #### [id number] #### [facility] ([facility]) [address] [place] [address] Neutrophils/100 WBC (Bld) 44.0 % Normal 40.0-72.0 [facility] Comment on above: Performed By: #### [id number] #### [facility] ([facility]) [address] [place] [address] NRBC (PER 100 WBCS) BY AUTOMATED COUNT 0.0 % Normal 0.0-0.0 [facility] Comment on above: Performed By: #### [id number] #### [facility] [address] [place] [address] PLATELETS (10*3/UL) IN BLOOD AUTOMATED COUNT 213 10*3/uL Normal 150-400 [facility] Comment on above: Performed By: #### [id number] #### [facility] ([facility]) [address] [place] [address] RBC (Bld) [#/Vol] 4.44 10*6/uL Normal 4.20-5.70 [facility] Comment on above: Performed By: #### [id number] #### [facility] ([facility]) [address] [place] [address] WBC (Bld) [#/Vol] 7.85 10*3/uL Normal 4.00-10.60 [facility] Comment on above: Performed By: #### [id number] #### [facility] ([facility]) [address] [place] [address] HEMOGLOBIN A1Con 06-01-2022 Glucose [Mass/Vol] 105.41 mg/dL Normal [facility] Comment on above: Performed By: #### [id number] #### [facility] [address] [place] [address] HbA1c (Bld) [Mass fraction] 5.3 % Normal 4.0-6.0 [facility] Comment on above: Performed By: #### [id number] #### [facility] (BEAKER) [address] [place] [address] HEPATIC FUNCTION PANELon Albumin [Mass/Vol] 3.6 g/dL Normal 3.5-5.7 [facility] Comment on above: Performed By: #### [id number] #### [facility] ([facility]) [address] [place] [address] ALP [Catalytic activity/Vol] 77 U/L Normal 34-104 [facility] Comment on above: Performed By: #### [id number] #### [facility] ([facility]) [address] [place] [address] ALT [Catalytic activity/Vol] 17 U/L Normal 7-52 [facility] Comment on above: Performed By: #### [id number] #### [facility] ([facility]) [address] [place] [address] AST [Catalytic activity/Vol] 17 U/L Normal 13-39 [facility] Comment on above: Performed By: #### [id number] #### [facility] ([facility]) [address] [place] [address] Bilirubin [Mass/Vol] 0.4 mg/dL Normal 0.3-1.0 [facility] Comment on above: Performed By: #### [id number] #### [facility] ([facility]) [address] [place] [address] Magnesium [Mass/Vol] 0.1 mg/dL Normal 0-0.2 [facility] Comment on above: Performed By: #### [id number] #### [facility] ([facility]) [address] [place] [address] Protein [Mass/Vol] 5.9 g/dL Low 6.0-8.3 [facility] Comment on above: Performed By: #### [id number] #### [facility] ([facility]) [address] [place] [address] LIPID PANELon 06-01-2022 CHOL/HDL 2.03 mg/dL Normal [facility] Comment on above: Performed By: #### [id number] #### [facility] ([facility]) [address] [place] [address] Cholesterol [Mass/Vol] 126 mg/dL Normal 120-200 [facility] Comment on above: Performed By: #### [id number] #### [facility] ([facility]) [address] [place] [address] Magnesium [Mass/Vol] 96 mg/dL Normal 40-149 [facility] Comment on above: Result Comment: TRIGLYCERIDE REFERENCE R DOLORES: 20 YEARS AND OLDER CARDIOVASCULAR RISK LESS THAN 150 mg/dL LOW RISK 150 TO 199 mg/dL BORDERLINE RISK 200 mg/dL AND GREATER HIGH RISK Performed By: #### L [id number] #### [facility] [address] [place] [address] Magnesium [Mass/Vol] 45 mg/dL Normal 0-160 [facility] Comment on above: Performed By: #### [id number] #### [facility] [address] [place] [address] Magnesium [Mass/Vol] 62 mg/dL Normal 23-92 [facility] Comment on above: Performed By: #### [id number] #### [facility] [address] [place] [address] NON HDL CHOL. (LDL+VLDL) 64 Normal [facility] Comment on above: Performed By: #### [id number] #### [facility] [address] [place] [address] TOTAL VLDL-C 19 mg/dL Normal 0-40 [facility] Comment on above: Performed By: #### [id number] #### [facility] (BEAKER) [address] [place] [address] MAGNESIUMon 06-01-2022 Magnesium [Mass/Vol] 1.8 mg/dL Low 1.9-2.7 [facility] Comment on above: Performed By: #### [id number] #### [facility] [address] [place] [address] BNPon 05-30-2022 Natriuretic peptide B (Bld) [Mass/Vol] 4836.0 pg/mL Critically high <=900.0 [facility] Comment on above: Performed By: #### CMP, HSTROPN, BNP ### # [facility] [facility] [address] [place] [address] Dr. Travis Anthony CBC AUTO DIFFon 05-30-2022 BASO # 0.1 103/ul Normal 0.0-0.1 [facility] Comment on above: Performed By: #### HSTROPN #### [facility] [address] [place] [address] Dr. Travis Anthony Basophils/100 WBC (Bld) 0.9 % Normal 0.2-2.0 [facility] Comment on above: Performed By: #### HSTROPN #### [facility] [address] [place] [address] Dr. Travis Anthony EO # 0.1 103/ul Normal 0.0-0.7 [facility] Comment on above: Performed By: #### HSTROPN #### [facility] [address] [place] [address] Dr. Travis Anthony Eosinophils/100 WBC (Bld) 1.1 % Normal 0.9-7.0 [facility] Comment on above: Performed By: #### HSTROPN #### [facility] [address] [place] [address] Dr. Travis Anthony Erythrocyte distribution width (RBC) [Ratio] 13.8 % Normal 11.0-15.0 [facility] Comment on above: Performed By: #### HSTROPN #### [facility] [address] [place] [address] Dr. Travis Anthony Hematocrit (Bld) [Volume fraction] 49.4 % Normal 42.0-54.0 [facility] Comment on above: Performed By: #### HSTROPN #### [facility] [address] [place] [address] Dr. Travis Anthony Hemoglobin (Bld) [Mass/Vol] 16.4 g/dL Normal 14.0-18.0 [facility] Comment on above: Performed By: #### HSTROPN #### [facility] [address] [place] [address] Dr. Travis Anthony IG # 0.03 10e3/ul Normal 0.00-0.03 [facility] Comment on above: Performed By: #### HSTROPN #### [facility] [address] [place] [address] Dr. Travis Anthony IG % 0.4 % Normal 0.0-0.5 [facility] Comment on above: Performed By: #### HSTROPN #### [facility] [address] [place] [address] Dr. Travis Anthony LYMPH # 2.1 103/ul Normal 1.2-3.8 [facility] Comment on above: Performed By: #### HSTROPN #### [facility] [address] [place] [address] Dr. Travis Anthony Lymphocytes/100 WBC (Bld) 24.5 % Normal 20.5-60.0 [facility] Comment on above: Performed By: #### HSTROPN #### [facility] [address] [place] [address] Dr. Travis Anthony MANUAL DIFF REQ NO Normal [facility] Comment on above: Performed By: #### HSTROPN #### [facility] [address] [place] [address] Dr. Travis Anthony MCH (RBC) [Entitic mass] 33.7 pg Normal 25.9-34.0 [facility] Comment on above: Performed By: #### HSTROPN #### [facility] [address] [place] [address] Dr. Travis Anthony MCHC (RBC) [Mass/Vol] 33.2 g/dL Normal 29.9-35.2 [facility] Comment on above: Performed By: #### HSTROPN #### [facility] [address] [place] [address] Dr. Travis Anthony MCV (RBC) [Entitic vol] 101.4 fL Critically high 80.0-94.0 [facility] Comment on above: Performed By: #### HSTROPN #### [facility] [address] [place] [address] Dr. Travis Anthony MONO # 0.8 103/ul Normal 0.3-0.8 [facility] Comment on above: Performed By: #### HSTROPN #### [facility] [address] [place] [address] Dr. Travis Anthony Monocytes/100 WBC (Bld) 8.8 % Normal 1.7-12.0 [facility] Comment on above: Performed By: #### HSTROPN #### [facility] [address] [place] [address] Dr. Travis Anthony NEUT # 5.5 103/ul Normal 1.4-6.5 [facility] Comment on above: Performed By: #### HSTROPN #### [facility] [address] [place] [address] Dr. Travis Anthony Neutrophils/100 WBC (Bld) 64.3 % Normal 43.0-75.0 [facility] Comment on above: Performed By: #### HSTROPN #### [facility] [address] [place] [address] Dr. Travis Anthony Platelet mean volume (Bld) [Entitic vol] 10.8 fL Normal 9.5-13.5 [facility] Comment on above: Performed By: #### HSTROPN #### [facility] [address] [place] [address] Dr. Travis Anthony PLT 230 103/ul Normal 150-450 [facility] Comment on above: Performed By: #### HSTROPN #### [facility] [address] [place] [address] Dr. Travis Anthony RBC 4.87 106/ul Normal 4.70-6.10 [facility] Comment on above: Performed By: #### HSTROPN #### [facility] [address] [place] [address] Dr. Travis Anthony WBC 8.5 103/ul Normal 4.0-11.0 [facility] Comment on above: Performed By: #### HSTROPN #### [facility] [address] [place] [address] Dr. Travis Anthony Covid-19 PCR ([facility])on SARS-CoV-2 (COVID-19) RNA FABIAN+probe Ql (Unsp spec) Not detected Normal NOT DETECTED [facility] Comment on above: Result Comment: [...] for this test is supported by the Surveillance Supervisor of Health and Human Service's declaration that [...] longer be used). Performed By: #### H [facility] #### [facility] [address] [place] [address] Dr. Travis Anthony ECHOCARDIO M/2D COMPLETEon 0 05-30-2022 ECHOCARDIO M/2D COMPLETE Patient: PATRICE KANG Exam Date: 05/30/2022 : 1965 Gender:M Ordering : SHAIKH Nick VALDES . Admission #: [id number] Family : Order #: [id number] CLICK HERE TO VIEW EXAM ECHOCARDIOGRAM REPORT [...] Riojas M.D. on 05/31/2022 at 11:18 Normal [facility] MAGNESIUMon 05-30-2022 Magnesium [Mass/Vol] 1.7 mg/dL Critically low 1.8-2.4 [facility] Comment on above: Performed By: #### HSTROPN #### [facility] [address] [place] [address] Dr. Travis Anthony PROF 14(COMP METB)on 023 Albumin [Mass/Vol] 3.7 g/dL Normal 3.4-5.0 [facility] Comment on above: Performed By: #### CMP, HSTROPN, BNP ### # [facility] [address] [place] [address] Dr. Travis Anthony Albumin/Globuli n [Mass ratio] 1.0 {ratio} Normal [facility] Comment on above: Performed By: #### CMP, HSTROPN, BNP ### # [facility] [address] [place] [address] Dr. Travis Anthony ALP [Catalytic activity/Vol] 72 U/L Normal 46-116 [facility] Comment on above: Performed By: #### CMP, HSTROPN, BNP ### # [facility] [address] [place] [address] Dr. Travis Anthony ALT [Catalytic activity/Vol] 25 U/L Normal 16-63 [facility] Comment on above: Performed By: #### CMP, HSTROPN, BNP ### # [facility] [address] [place] [address] Dr. Travis Anthony Anion gap [Moles/Vol] 16.8 mmol/L Normal [facility] Comment on above: Performed By: #### CMP, HSTROPN, BNP ### # [facility] [address] [address] [address] Travis Anthony AST [Catalytic activity/Vol] 21 U/L Normal 15-37 [facility] Comment on above: Performed By: #### CMP, HSTROPN, BNP ### # [facility] [address] [address] [address] Travis Anthony Bilirubin [Mass/Vol] 0.7 mg/dL Normal 0.2-1.0 [facility] Comment on above: Performed By: #### CMP, HSTROPN, BNP ### # [facility] [address] [place] [address] Dr. Travis Anthony Calcium [Mass/Vol] 9.5 mg/dL Normal 8.5-10.1 [facility] Comment on above: Performed By: #### CMP, HSTROPN, BNP ### # [facility] [address] [place] [address] Dr. Travis Anthony Chloride [Moles/Vol] 103 mmol/L Normal 98-107 [facility] Comment on above: Performed By: #### CMP, HSTROPN, BNP ### # [facility] [address] [place] [address] Dr. Travis Anthony CO2 [Moles/Vol] 24.5 mmol/L Normal 21.0-32.0 [facility] Comment on above: Performed By: #### CMP, HSTROPN, BNP ### # [facility] [address] [place] [address] Dr. Travis Anthony Creatinine [Mass/Vol] 1.01 mg/dL Normal 0.70-1.30 [facility] Comment on above: Performed By: #### CMP, HSTROPN, BNP ### # [facility] [address] [place] [address] Dr. Travis Anthony EGFR-AF CENTRAL AFRICAN >60 Normal >=60 [facility] Comment on above: Performed By: #### CMP, HSTROPN, BNP ### # [facility] [address] [address] [address] Travis Anthony EGFR-NON AF CENTRAL AFRICAN >60 Normal >=60 [facility] Comment on above: Performed By: #### CMP, HSTROPN, BNP ### # [facility] [address] [address] [address] Tarvis Anthony Globulin (S) [Mass/Vol] 3.8 g/dL Normal [facility] Comment on above: Performed By: #### CMP, HSTROPN, BNP ### # [facility] [address] [address] [address] Travis Anthony Glucose [Mass/Vol] 152 mg/dL Critically high 74-106 [facility] Comment on above: Performed By: #### CMP, HSTROPN, BNP ### # [facility] [address] [place] [address] Dr. Travis Anthony Potassium [Moles/Vol] 4.3 mmol/L Normal 3.5-5.1 [facility] Comment on above: Performed By: #### CMP, HSTROPN, BNP ### # [facility] [address] [address] [address] Travis Anthony Protein [Mass/Vol] 7.5 g/dL Normal 6.4-8.2 [facility] Comment on above: Performed By: #### CMP, HSTROPN, BNP ### # [facility] [address] [address] [address] Travis Anthony Sodium [Moles/Vol] 140 mmol/L Normal 136-145 [facility] Comment on above: Performed By: #### CMP, HSTROPN, BNP ### # [facility] [address] [address] [address] Travis Anthony Urea nitrogen [Mass/Vol] 8.0 mg/dL Normal 7.0-18.0 [facility] Comment on above: Performed By: #### CMP, HSTROPN, BNP ### # [facility] [address] [address] [address] Travis Anthony Urea nitrogen/Creati nine [Mass ratio] 7.9 mg/mg Normal [facility] Comment on above: Performed By: #### CMP, HSTROPN, BNP ### # [facility] [address] [place] [address] Dr. Travis Anthony PROTIMEon 05-30-2022 INR Coag (PPP) [Relative time] 1.03 {INR} Normal [facility] Comment on above: Performed By: #### PT, PTT #### [facility] [address] [place] [address] Dr. Travis Anthony INR GUIDELINES SEE BELOW Normal [facility] Comment on above: Result Comment: DESIRED INR: 2.0 - 3.0 C ONDITIONS NOT LISTED BELOW 2.5 - 3.5 FOR PROSTHETIC HEART VALVE REPLACEMENT 2.5 - 3.5 RECURRENT THROMBOSIS Performed By: #### P T, PTT #### [facility] [address] [place] [address] Dr. Travis Anthony PT Coag (PPP) [Time] 10.9 s Normal 9.0-11.6 [facility] Comment on above: Performed By: #### PT, PTT #### [facility] [address] [place] [address] Dr. Travis Anthony PTTon 05-30-2022 aPTT Coag (Bld) [Time] 27.5 s Normal 22.3-36.2 [facility] Comment on above: Performed By: #### PT, PTT #### [facility] [address] [place] [address] Dr. Travis Anthony TROPONIN, HIGH SENSITIVITYon 05-30-2022 HSTROP 45.9 pg/mL Normal 4.0-76.1 [facility] Comment on above: Result Comment: CUT-OFF POINTS HAVE BEEN ESTABLISHED BASED ON THE FOURTH UNIVERSAL DEFINITIONS OF MYOCARDIAL INFARCTION. THE UPPER REFERENCE LIMIT (URL) OF TROPONIN, DEFINED THE 99TH PERCENTILE OF cTnI DISTRIBUTION IN A REFERENCE POPULATION, HAS BEEN CONFIRMED THE DECISION THRESHOLD FOR CA DIAGNOSIS. Performed By: #### H STROPN #### [facility] [address] [place] [address] Dr. Travis Anthony HSTROP 47.0 pg/mL Normal 4.0-76.1 [facility] Comment on above: Result Comment: CUT-OFF POINTS HAVE BEEN ESTABLISHED BASED ON THE FOURTH UNIVERSAL DEFINITIONS OF MYOCARDIAL INFARCTION. THE UPPER REFERENCE LIMIT (URL) OF TROPONIN, DEFINED THE 99TH PERCENTILE OF cTnI DISTRIBUTION IN A REFERENCE POPULATION, HAS BEEN CONFIRMED THE DECISION THRESHOLD FOR CA DIAGNOSIS. Performed By: #### C MP, HSTROPN, BNP #### [facility] [address] [place], [place] [address] Dr. Travis Anthony TSHon 05-30-2022 TSH 2.324 uIU/mL Normal 0.358-3.74 0 [facility] Comment on above: Performed By: #### TSH #### [facility] [address] [place], [place] [address] Dr. Travis Anthony XR CHEST 1 Von [...] by: CRISTAL HINKLE Date: 2022-05-30 11:32 Normal [facility] Coding Summaryon 12-16-2017 Coding Summary CODING DATE: [facility] STATUS: Home PAYOR: Self Pay ADMIT DX: [...] Kina Spicer Date Saved: 12/16/2017 01:51 pm [facility] Coding Summary CODING DATE: [facility] STATUS: Home PAYOR: Self Pay APC DESCRIPTION [...] Kina Spicer Date Saved: 12/16/2017 01:50 pm [facility] Coding Summary CODING DATE: [facility] STATUS: Home PAYOR: Self Pay ADMIT DX: [...] Kina Spicer Date Saved: 12/16/2017 01:48 pm [facility] Coding Summaryon 12-02-2017 Coding Summary CODING DATE: [facility] STATUS: Home PAYOR: Self Pay ADMIT DX: [...] Melissa Bar Date Saved: 12/02/2017 07:30 am [facility] Coding Summary CODING DATE: [facility] STATUS: Home PAYOR: Self Pay ADMIT DX: [...] Melissa Bar Date Saved: 12/02/2017 07:28 am Normal [facility] ED Clinical Summaryon 2017 ED Clinical Summary [facility] [id number] [place], [place] [id number] ed Clinical SummaryPERSON INFORMATIONName: PATRICE KANG Age: 52 Years Sex: MALEDOB: [birth year] MRN: Acct#:Visit Reason: RIGHT LEG STITCHES REMOVAL Arrival: 11/27/17 17:55:00 Discharge: 11/27/17 18:16:00LOS: 000 00:21 Check In: 11/27/17 17:55:00 Checkout:11/27/17 18:16:00Address:[address] [facility] [address]NFI: Provider, NonePROVIDER INFORMATIONProvider Role Assigned UnassignedMESFIN STOKES ED PA 11/27/17 17:57:31Yuly REEVES, Kermit ED Nurse 11/27/17 17:58:29VITALS INFORMATIONVital Sign Triage LatestTemperature TympanicTemperature Temporal ArteryPulse Rate 73 bpm 73 bpmO2 Sat 100 % 100 %Respiratory Rate 18 br/min 18 br/minBlood Pressure 145 mmHg/92 mmHg 145 mmHg/92 mmHgMEDICAL INFORMATIONMedications Given:Allergy Information:No Known Medication AllergiesPHYSICIAN DOCUMENTATIONPatient: PATRICE KANG : 52 years Sex: MALE : [birth year]Associated Diagnoses: Visit for suture removal; CellulitisAuthor: MESFIN STOKES HBasic InformationTime seen: Date & time 11/27/17 17:58:00.History source: Patient.Arrival mode: Private vehicle, walking.History of Present Cyxzenh41-zacf-gub male presents to emergency department with complaint [...] area is mildly warm to touchNECK: -Supple (lgoz-gv-rcyhu): non-tender.CARD: -Rate and rhythm: Regular -Edema: No [...] and time. -Appearance and judgment: appropriate.Medical Decision Lqkwxk00-amgj-cjd male presents to emergency department with complaint [...] be dischargedImpression and PlanDiagnosisVisit for suture removal (OKW85-GB Z48.02, Discharge, Medical)Cellulitis (ZXS98-UX L03.90, Discharge, Medical)PlanCondition: Stable.Disposition: Discharged: Time 11/27/17 [...] - Patient/family/caregiver verbalizes understanding of instructions givenComment: Normal [facility] ED Note - Physicianon 2017 ED Note - Physician Patient: PATRICE KANG : 52 years Sex: MALE : [birth year]Associated Diagnoses: Visit for suture removal; CellulitisAuthor: MARZENA CUBA, MESFIN Casey InformationTime seen: Date & time 11/27/17 17:58:00.History source: Patient.Arrival mode: Private vehicle, walking.History of Present Fzgyytl56-uook-xua male presents to emergency department with complaint [...] area is mildly warm to touchNECK: -Supple (dghz-cu-obwga): non-tender.CARD: -Rate and rhythm: Regular -Edema: No [...] and time. -Appearance and judgment: appropriate.Medical Decision Cqpvpb85-rgnj-arx male presents to emergency department with complaint [...] be dischargedImpression and PlanDiagnosisVisit for suture removal (IBU63-BY Z48.02, Discharge, Medical)Cellulitis (KFU94-VS L03.90, Discharge, Medical)PlanCondition: Stable.Disposition: Discharged: Time 11/27/17 [...] MESFIN STOKES[Verified on: 11/27/2017 18:16 EDT] MESFIN SOTKES [facility] ED Patient Education Noteon 11-27-2017 ED Patient [...] and water are not available, use hand mess cook.? Change your dressing as told by your [...] antibiotic even if your condition improves.? Take qjct-xzp-tfjoflz and prescription medicines only as told by [...] Reviewed: 10/30/2016[employer] Patient Education ? 2018 [employer].Suture Removal, Care AfterRefer to this sheet in [...] Released: 01/07/2002 Document Revised: 09/19/2016 Document Reviewed: 11/24/2013[employer] Patient Education ? 2017 [employer]. Normal [facility] ED Patient Summaryon 018 ED Patient Summary [facility] [address] [place] [address] pATIENT DISCHARGE INSTRUCTIONSPatient InformationName: PATRICE KANG Age: [...] and treatment you received today in the [facility] Emergency Department were for an urgent problem and are not intended as complete care. It is important for you to follow up with a doctor, nurse practitioner, or physician?s chemical laboratory assistant for ongoing care. If your symptoms [...] number so we can reach you if necessary.[facility] Emergency Department has provided you with a complete list of medications post discharge. Please inform your gun striper/provider of your visit and for further instruction [...] 75.000 kgProblems List:Problem Onset CommentsNo Problems foundPatient EducationIncision Care, AdultAn incision is a surgical cut [...] and water are not available, use hand mess cook.? Change your dressing as told by your [...] antibiotic even if your condition improves.? Take miyz-wma-ssbbump and prescription medicines only as told by [...] Reviewed: 10/30/2016[employer] Patient Education ? 2018 [employer].Suture Removal, Care AfterRefer to this sheet in [...] Released: 01/07/2002 Document Revised: 09/19/2016 Document Reviewed: 11/24/2013[employer] Patient Education ? 2017 [employer]. Viruses or BacteriaWhat?s got you sick?Antibiotics only [...] Disease Control and Prevention December 2013 Normal [facility] ED Clinical Summaryon 2017 ED Clinical Summary [facility] [address] [place] [id number] ed Clinical SummaryPERSON INFORMATIONName: PATRICE KANG Age: 52 Years Sex: MALEDOB: [birth year] MRN: Acct#:Visit Reason: Leg laceration; C/O RIGHT LEG LACERATION Arrival: 11/13/17 14:03:00 Discharge: 11/13/17 15:43:00LOS: 000 01:40 Check In: 11/13/17 14:03:00 Checkout:11/13/17 15:43:00Address:[address] [facility] [address]CNT: Provider, NonePROVIDER INFORMATIONProvider Role Assigned UnassignedRaul Corral [...] : 67Associated Diagnoses: Leg lacerationAuthor: Ellis MONTGOMERY, Raul Parker InformationTime seen: Date & time 11/13/17 14:04:00.History source: Patient.Arrival mode: Private vehicle.History limitation: None.History of Present Oaliwsc10-cjrp-dtj male presented to the emergency department today [...] Self.Total time: 25 minutes.Impression and PlanDiagnosisLeg laceration (KJS48-JK S81.819A, Discharge, Medical)PlanCondition: Stable.Disposition: Discharged: Time 11/13/17 15:26:00, to home.Patient was given the following educational materials: Stitches, Sarah, or Adhesive Wound Closure, Stitches, Thebes, or Adhesive Wound Closure.Follow up with: ; [...] Disposition: HomeDischarge Location: HomePATIENT EDUCATION INFORMATIONInstructions: Stitches, Thebes, or Adhesive Wound ClosureFollow-Up:With: Address: When:Follow up [...] - Patient/family/caregiver verbalizes understanding of instructions givenComment: [facility] ED Note - Physicianon 2017 ED Note [...] making.The case was discussed with: the physician chemical laboratory assistant.Evaluation and management service: I agree with the evaluation and management decisions made in this patient's care.Results interpretation: I agree with the study interpretation in this patient's care, I agree with the documentation of the study interpretation.Seen with PA. Supervised laceration repair..[Electronically Signed on: 11/13/2017 16:22 EDT] Devyn Reyes MD[Verified on: 11/13/2017 16:22 EDT] Devyn Reyes MD [facility] ED Note - Physician Patient: PATRICE KANG : 52 years Sex: MALE : [birth year]Associated Diagnoses: Leg lacerationAuthor: Raul Corral PA-C InformationTime seen: Date & time 11/13/17 14:04:00.History source: Patient.Arrival mode: Private vehicle.History limitation: None.History of Present Ycieezw87-vtki-jcv male presented to the emergency department today [...] Self.Total time: 25 minutes.Impression and PlanDiagnosisLeg laceration (NWW99-BB S81.819A, Discharge, Medical)PlanCondition: Stable.Disposition: Discharged: Time 11/13/17 15:26:00, to home.Patient was given the following educational materials: Stitches, Thebes, or Adhesive Wound Closure, Stitches, Sarah, or Adhesive Wound Closure.Follow up with: ; [...] on: 11/13/2017 15:36 EDT] Raul Corral PA-C [facility] ED Patient Education Noteon 11-13-2017 ED Patient [...] are often used to close surgical cuts (incisions).Thebes are faster to use than sutures, and they cause less skin reaction. Thebes need to be removed using a tool [...] Released: 01/07/2002 Document Revised: 12/11/2016 Document Reviewed: 09/21/2014Elsevier Interactive Patient Education ? 2018 [employer]. Normal [facility] ED Patient Summaryon 018 ED Patient Summary [facility] - Emergency [address] [place] [address] pATIENT DISCHARGE INSTRUCTIONSPatient InformationName: PATRICE KANG Age: 52 YearsDate of : 67MRN: [id number] Visit: Leg laceration; C/O RIGHT LEG LACERATIONArrival Time: 11/13/17 14:03:00Phone: Primary Care Physician: Provider, NoneAttending Physician: Devyn Reyes MDComment:Visit Diagnosis:Diagnoses This Visit Leg laceration ([id number]) Leg laceration (S81.819A)If you received any [...] and treatment you received today in the [facility] Emergency Department were for an urgent problem and are not intended as complete care. It is important for you to follow up with a doctor, nurse practitioner, or physician?s chemical laboratory assistant for ongoing care. If your symptoms [...] number so we can reach you if necessary.[facility] Emergency Department has provided you with a complete list of medications post discharge. Please inform your gun striper/provider of your visit and for further instruction [...] kgProblems List:Problem Onset CommentsNo Problems foundPatient EducationStitches, Thebes, or Adhesive Wound ClosureHealth care providers use [...] and an instrument secures the edges together. Thebes are often used to close surgical cuts (incisions).Thebes are faster to use than sutures, and they cause less skin reaction. Thebes need to be removed using a tool [...] Released: 01/07/2002 Document Revised: 12/11/2016 Document Reviewed: 09/21/2014Elsevier Interactive Patient Education ? 2018 [employer]. Viruses or BacteriaWhat?s got you sick?Antibiotics only [...] Disease Control and Prevention December 2013 Normal [facility] Coding Summaryon 03-03-2017 Coding Summary CODING DATE: [address] [facility] STATUS: Home PAYOR: Self Pay APC DESCRIPTION [...] Spicer' Revised Date Saved: 12/12/2016 01:07 pm [facility] Coding Summary CODING DATE: [address] [facility] STATUS: Home PAYOR: Self Pay APC DESCRIPTION [...] By: Robert Spicer' Revised Date Saved: 12/12/2016 01:05 pm [facility] Coding Summaryon 02-20-2017 Coding Summary CODING DATE: [address] [facility] STATUS: Home PAYOR: Self Pay APC DESCRIPTION [...] Bar Revised Date Saved: 10/23/2016 11:37 am [facility] Coding Summary CODING DATE: [address] [facility] STATUS: Home PAYOR: Self Pay APC DESCRIPTION [...] Bar Revised Date Saved: 10/23/2016 11:35 am [facility] Encounters Encounter Date Encounter Type Care Provider Facility Start: 05-27-2023 End: 05-27-2023 ambulatory [facility] Start: 05-26-2023 End: 05-27-2023 ambulatory [facility] Start: 04-01-2023 End: 04-01-2023 ambulatory [facility] Start: 11-08-2022 End: 11-08-2022 ambulatory [facility] Start: 09-24-2022 End: 09-24-2022 ambulatory [facility] Start: 09-11-[address] MINOR [facility] Facility :H1 Start: 07-02-2022 End: 07-02-2022 ambulatory SAMARA THIBODEAUX [facility] Start: 06-12-2022 End: 06-13-2022 ambulatory NONE LISTED REQUEST Facility:H1 Start: 06-11-2022 End: 06-12-2022 ambulatory NONE LISTED REQUEST Facility:[facility]1 Start: 06-06-2022 Evaluation and management of inpatient DAVID [facility] Start: 06-04-2022 Evaluation and management of inpatient DAVIDYURIDIA MUSTAFA [facility] Start: 06-04-2022 Evaluation and management of inpatient ISRAEL AVINASH [facility] Start: 06-03-2022 Evaluation and management of inpatient ISRAEL NAVARRETE [facility] Start: 05-31-2022 End: 06-06-2022 Evaluation and management of inpatient SIXTO VERA [facility] Start: 05-30-2022 End: 05-31-2022 Evaluation and management of inpatient DR NONE LISTED REQUEST Facility: Start: 11-28-2017 End: 12-15-2017 Patient encounter None Provider Facility:[facility] Start: 11-27-2017 End: 12-15-2017 Emergency department patient visit None Provider Facility:[facility] Start: 11-14-2017 End: 11-14-2017 Patient encounter Devyn Hilaria Reyes Facility:[facility] Start: 11-13-2017 End: 11-13-2017 Emergency department patient visit None Provider Facility:[facility] Payers Date Payer Category Payer Medicaid [id number] 2017 Self-pay 1965 Unknown [id number] 1965 Unknown [id number] [id number] 1966 Unknown [id number] [id number] 1966 Unknown [id number] [id number] 1959 Unknown [id number] Clinical Notes 05-31-2022 to 05-27-2023 Note Date & Type Note Facility 05-27-2023 Note [facility] Consult Note Reason for visit: A-fib, nonischemic cardiomyopathy, AF ablation HP / consent 05/28/23: He is here for A-fib ablation H&P and consent Recently stopped all of his medications including Eliquis due to not feeling well on them. Did not notify any of his providers to discuss what he was feeling and see if we can mitigate his symptoms without stopping on medications. States he felt fatigued every day and stopped all of them. Said he had occasional nosebleeds which were not frequent and did not persist. I discussed them he is on Eliquis and aspirin likely we can just not resume aspirin and see how he does. I discussed with him the importance of resuming Eliquis, Entresto and atorvastatin to start. I discussed the importance of committing to taking Eliquis for 90 days post ablation due to the increased risk of stroke from the ablation. He understood this and states he will resume his Eliquis, Entresto and atorvastatin. And he will not interrupt Eliquis for 90 days post ablation, at least without discussing with his cardiology providers first if there is any concern to interrupt. Otherwise we discussed the ablation in depth we discussed all risks and benefits associated with this. PMH: nonischemic cardiomyopathy, A-fib RVR, htn, history of smoking and drinking Medications: will start entresto 24.26mg BID, eliquis 5mg BID, atorvastatin 40mg Previous HPI 04/01/23 HPI: Patrice Kang is a 57 y.o. year old with past medical history of nonischemic cardiomyopathy, A-fib RVR, htn, history of smoking and drinking. he recently presented to [facility] with complaints of shortness of breath and was transferred to [facility] where he had heart catheterization done which [...] PMH: Past Medical History: Diagnosis Date A-fib (CMS/HCC) CHF (congestive heart failure) ([facility]) Coronary artery disease Heart failure ([facility]) Smoker PSH: Past Surgical History: Procedure Laterality Date APPENDECTOMY CARDIAC CATHETERIZATION CARDIOVERSION SH: Social Determinants of Health Tobacco Use: High Risk (11/08/2022) Patient History Smoking Tobacco Use: Every Day Smokeless Tobacco Use: Former Passive Exposure: Not on file Alcohol Use: Not on file Financial Resource Strain: Patient Declined (05/31/2022) Overall Financial Resource Strain (CARDIA) Difficulty of Paying Living Expenses: Patient declined Food Insecurity: Unknown (05/31/2022) Hunger Vital Sign Worried About Running Out of Food in the Last Year: Patient declined Ran Out of Food in the Last Year: Not on file Transportation Needs: Unknown (05/31/2022) PRAPARE - Transportation Lack of Transportation (Medical): Patient declined Lack of Transportation (Non-Medical): Not on file Physical Activity: Not on file Stress: Not on file Social Connections: Not on file Intimate Partner Violence: Not on file (05/31/2022) Depression: Not on file Housing Stability: Unknown (05/31/2022) Housing Stability Vital Sign Unable to Pay for Housing in the Last Year: Not on file Number of Places Lived in the Last Year: Not on file Unstable Housing in the Last Year: Patient refused Utilities: Not on file Allergies: No Known Allergies Weight: 68.5kg Visit Vitals BP 162/90 (BP Location: Right arm, Patient Position: Sitting) Pulse 61 Ht 1.702 m (5' 7 ) Wt 68.5 kg (151 lb) SpO2 97% BMI 23.65 kg/m??? Smoking Status Every Day BSA 1.8 m??? Meds: Current Outpatient Medications on File Prior to Visit Medication Sig Dispense Refill amiodarone (Pacerone) 200 mg tablet Take 1 tablet (200 mg) by mouth in the morning. (Patient not taking: Reported on 05/27/2023) 90 tablet 3 amiodarone (Pacerone) 400 mg tablet Take 1 tablet (400 mg) by mouth with breakfast for 7 days. 7 tablet 0 apixaban (Eliquis) 5 mg tablet Take 1 tablet (5 mg) by mouth in the morning and at bedtime. (Patient not taking: Reported on 05/27/2023) 180 tablet 3 aspirin 81 mg chewable tablet Chew 1 tablet (81 mg) with breakfast. (Patient not taking: Reported on 05/27/2023) 90 tablet 3 atorvastatin (more content not included)... [facility] 05-27-2023 Note Patient here for H&P prior to afib ablation scheduled for Jun 04, 2023. States he's not taking any medications because they were fucking with his head and freaking him out. He was getting episodes of epistaxis with Eliquis. This has resolved since stopping, and he also has more energy. States he's working 12 hour days but is unable to tell me the name of his employer. Review of Systems Musculoskeletal: Positive for arthritis and joint pain. All other systems reviewed and are negative. [facility] 04-01-2023 Note [facility] Electrophysiology Consult Note Reason for visit: A-fib, nonischemic cardiomyopathy HPI: Patrice Kang is a 57 y.o. year old with past medical history of nonischemic cardiomyopathy, A-fib RVR, htn, history of smoking and drinking. he recently presented to [facility] with complaints of shortness of breath and was transferred to [facility] where he had heart catheterization done which [...] PMH: Past Medical History: Diagnosis Date A-fib (CMS/HCC) CHF (congestive heart failure) (CMS/HCC) Coronary artery disease Heart failure (CMS/HCC) Smoker PSH: Past Surgical History: Procedure Laterality [...] enlarged Lungs Resp (more content not included)... [facility] 11-08-2022 Note [facility] Electrophysiology Consult Note Reason for visit: A-fib, [...] smoking and drinking. he recently presented to [facility] with complaints of shortness of breath and was transferred to [facility] where he had heart catheterization done which [...] as a direct transfer from outside facility, [facility]. Patient initially presented at their [...] waiting for DC paperwork or prescriptions from [employer]. Cardiology team was notified. PMH: Past Medical History: Diagnosis Date A-fib (CMS/HCC) CHF (congestive heart failure) (CMS/HCC) Coronary artery disease Heart failure (CMS/HCC) Smoker PSH: Past Surgical History: Procedure Laterality [...] by mouth a (more content not included)... [facility] 11-08-2022 Note Patient here for fol low up MUGA scan. Denies chest pain, SOB, and palpitations. Review of Systems Musculoskeletal: Positive for arthritis and joint pain. All other systems reviewed and are negative. [facility] 09-27-2022 Note RNA [facility] 09-26-2022 Note - noted history of a lcohol abuse but patient states he is stopping [facility] 09-26-2022 Note - discussed and advi sed cessation, patient continues to smoke [facility] 09-26-2022 Note - CAD stable, nonobs tructive and mild - continue aspirin 81 mg, Lipitor 40 mg [facility] 09-26-2022 Note - [id number] at le ast 2 for heart failure [...] monitor just to evaluate for any bradycardia [facility] 09-26-2022 Note - NYHA I, NICM media [...] know so we can prescribe diuretic therapy [facility] 09-24-2022 Note [facility] Electrophysiology Consult Note Reason for visit: A-fib, nonischemic cardiomyopathy, ICD evaluation HPI: Patrice Kang is a 57 y.o. year old with past medical history of nonischemic cardiomyopathy, A-fib RVR, htn, history of smoking and drinking. he recently presented to [facility] with complaints of shortness of breath and was transferred to [facility] where he had heart catheterization done which [...] as a direct transfer from outside facility, [facility]. Patient initially presented at their [...] waiting for DC paperwork or prescriptions from [employer]. Cardiology team was notified. PMH: Past Medical History: Diagnosis Date A-fib ([facility]) CHF (congestive heart failure) ([facility]) Coronary artery disease Heart failure ([facility]) Smoker PSH: Past Surgical History: Procedure Laterality [...] tablet 3 spironola (more content not included)... [facility] 09-24-2022 Note Patient here for 2 m [...] All other systems reviewed and are negative. [facility] 07-02-2022 Note Cardiology Clinic No te Subjective [...] of beer per week Comment: not since [facility] discharge in May 2022 Drug use: Yes Types: Marijuana HPI: Discharge Summary 06/06/2022 Patrice Kang is an 56 y.o. male with no known significant past medical history, history of smoking and EtOH use, presents to the hospital today as a direct transfer from outside facility, [facility]. Patient initially presented at their [...] waiting for DC paperwork or prescriptions from [employer]. Cardiology team was notified. Update: 04/10/2023 He [...] 126 05/31/2022 TRI (more content not included)... [facility] 06-11-2022 Note Cardiology Clinic No te Emi Patrice Kang is a 56 y.o. year [...] of beer per week Comment: not since [facility] discharge Drug use: Yes Types: Marijuana HPI: Discharge Summary 06/06/2022 Patrice Kang is an 56 y.o. male with no known significant past medical history, history of smoking and EtOH use, presents to the hospital today as a direct transfer from outside facility, [facility]. Patient initially presented at their [...] waiting for DC paperwork or prescriptions from [employer] [facility]. Cardiology team was notified. Review of Systems [...] cardioversion using 360 (more content not included)... [facility] 06-11-2022 Note Patient here for [facility] for afib and heart failure. He underwent cardioversion and heart cath. He is not sure what medications he is currently taking, but states there are 9-10 pills. Says he feels better s/p hospital stay. SOB is improving, denies chest pain. Review of Systems Cardiovascular: Positive for dyspnea on exertion. Respiratory: Positive for shortness of breath. All other systems reviewed and are negative. [facility] 06-07-2022 Note Provider called pt's Daughter Marisa- [phone] and his primary contact Troy Pineda regarding assistance with obtaining needed medications for pt. RN reported yesterday that pt left hospital without waiting for DC paperwork or prescriptions from [employer]. Therefore, after D/W Mr Geiger they requested scripts for medications to be sent to [facility] in [place] and Marisa states she will pick them up and assist pt with continuing recommended medications. Also, I informed daughter that pt has appointment at [facility] on 06/11/22 at 11:50 am and she states she will come with him to this appt. Brai Omalley SOCIAL SCIENCE PROFESSOR Division of Cardiology, [facility]- [phone] Pager- [phone] Email- [email or web address] 06-06-2022 Note Hospital Medicine Discharge Summary Final Discharge Diagnosis: Acute systolic heart failure (CMS/HCC) Admission Diagnosis: Acute systolic heart failure (CMS/HCC) [I50.21] Hospital course: Patrice Kang is an 56 y.o. male with no known significant past medical history, history of smoking and EtOH use, presents to the hospital today as a direct transfer from outside facility, [facility]. Patient initially presented at their [...] waiting for DC paperwork or prescriptions from [employer]. Cardiology team was notified. Dear Dr. Uriah MD, Patrice is advised to follow up with you within 1-2 weeks. Follow-up with: Cardiology Scheduled appointments: Future Appointments Date Time Provider Department Center 06/11/2022 11:50 AM Samara Thibodeaux NP [facility] Your medication list START taking these medications [...] Medications These medications were [facility] [address] [place] [address] [facility] [place] [address], [facility] [address] amiodarone 200 mg tablet amiodarone 400 mg [...] rhythm. Lungs: C (more content not included)... [facility] 06-06-2022 Note DIRECT CARDIOVERSION PROCEDURE NOTE Date: . Type of procedure: DC Cardioversion. Performed by: Antolin Ayala MD/ Dr Deborah Linder Informed consent: Signed by patient. Indication: 56 y.o. male with past medical history significant for tobacco abuse and alcohol use was transferred to [facility] from [facility] due to increased exertional dyspnea [...] Continue anticoagulation. Antolin Ayala MD Cardiac Electrophysiology [facility] 06-06-2022 Note Patient refused all discharge education stating I don't want to hear it, I just want to go home. Patient signed AVS but is refusing to wait for prescriptions to be filled by imeds. RN instructed on the importance of medications but patient still refusing and walked off unit. Tasha LAWSON notified. [facility] 06-06-2022 Note Hospital Medicine Daily Progress Note - 06/06/2022 11:21 AM; Room: [address] [place], [place] [address]- Admission: 05/31/2022 8:24 PM; Length of stay: 6 days THE HOSPITALIST TEAM PREFERS TO USE [employer] CHAT FOR COMMUNICATION 7AM-7PM. IF I DO NOT RESPOND WITHIN 15 MINUTES, PLEASE PAGE ME/CALL THROUGH THE VEHICLE OPERATOR TECHNICIAN. FROM 7PM-7AM, PLEASE PAGE [phone](COVR) Code Status: Full Code Discharge Destination: home [...] LDL 64 05/31/2022 No results found for: [id number], IRON, TIBC, C3, C4, MELISA, CANCA, ASO, [...] informed consent. The patient was brought to medical laboratory scientist in a fasting state. The right neck area was prepped and draped in usual fashion. Micropuncture technique was used for access under ultrasound guidance into the right internal jugular vein. A 6-Romansh x 11 cm sheath was placed. The right wrist area was prepped and draped in usual fashion. Micropuncture technique was used for access in the right radial artery under ultrasound guidance. A 6-Romansh x 11 cm sheat (more content not included)... [facility] 06-06-2022 Note Cardiology Progress Note Subjective F/U- [...] medical history presented as a transfer from [facility] due to worsening exertional dyspnea. [...] Farxiga, Aldactone. Continue eliquis anticoagulation. Bria Omalley SOCIAL SCIENCE PROFESSOR Division of Cardiology, [facility] Ph- [phone] Pager- [phone] Email- [email or web address] 06-05-2022 Note Hospital Medicine Daily Progress Note - 06/05/2022 2:44 PM; Room: [address] [place], [place] [address] Admission: 05/31/2022 8:24 PM; Length of stay: 5 days THE HOSPITALIST TEAM PREFERS TO USE [employer] CHAT FOR COMMUNICATION 7AM-7PM. IF I DO NOT RESPOND WITHIN 15 MINUTES, PLEASE PAGE ME/CALL THROUGH THE VEHICLE OPERATOR TECHNICIAN. FROM 7PM-7AM, PLEASE PAGE [phone](COVR) Code Status: Full Code Discharge Destination: rehab [...] LDL 64 05/31/2022 No results found for: [id number], IRON, TIBC, C3, C4, MELISA, CANCA, ASO, [...] discharge transport been arranged?: No Signed David Mustafa MD [facility] Medicine 06/05/2022 2:44 PM [facility] 06-05-2022 Note Social Work Note Met with patient at bedside to conduct screening. Patient was guarded when answering questions. Patient states that right now he is living with friends from house to house , but is originally from [place]. Patient declined housing, financial and mental health resources. Patient states that he has friends that can help him and declined answering any more questions. [facility] 06-05-2022 Note Cardiology Progress Note Subjective F/U- [...] medical history presented as a transfer from [facility] due to worsening exertional dyspnea. [...] eliquis anticoagulation. DC heparin infusion Bria Omalley SOCIAL SCIENCE PROFESSOR Division of Cardiology, [facility]- [phone] Pager- [phone] Email- [email or web address] 06-04-2022 Note ---- Attestation signed by Sahil [...] fibrillation, cardiomyopathy POST-OP DIAGNOSIS: Atrial fibrillation, cardiomyopathy VEHICLE OPERATOR TECHNICIAN: Sahil Medrano MD, Deborah Vergara DO ANESTHESIA: Moderate sedation COMPLICATIONS: None. OPERATIVE TERM: DC cardioversion. An informed consent was obtained from the patient after explaining the indication, risk and benefits, and alternatives. The patient understood, agreed, and signed the consent form. The patient was brought to the medical laboratory scientist and transesophageal echocardiogram was performed under conscious [...] during the procedure. IMPRESSION: Unsuccessful DC cardioversion. [facility] 06-04-2022 Note Patient: Patrice colby Procedure Information Date/Time: 06/04/22 1327 Procedures: Coronary angiography Right heart cath Location: [facility] TELEPHOTO INSTALLER 2 BIPLANE / [facility] (Cath) Providers: To Lovett MD Clinical information reviewed: Allergies Meds Physical Exam Airway Mallampati: II TM distance: >3 FB Neck ROM: full Cardiovascular Dental Pulmonary Abdominal Anesthesia Plan ASA 3 other (Conscious sedation) Anesthetic plan and risks discussed with patient. Use of blood products discussed with patient who consented to blood products. Additional Equipment Requests [facility] 06-04-2022 Note Hospital Medicine Daily Progress Note - 06/04/2022 11:39 AM; Room: [address] [place] [address] Admission: 05/31/2022 8:24 PM; Length of stay: 4 days THE HOSPITALIST TEAM PREFERS TO USE [employer] CHAT FOR COMMUNICATION 7AM-7PM. IF I DO NOT RESPOND WITHIN 15 MINUTES, PLEASE PAGE ME/CALL THROUGH THE VEHICLE OPERATOR TECHNICIAN. FROM 7PM-7AM, PLEASE PAGE [phone](COVR) Code Status: Full Code Discharge Destination: rehab [...] LDL 64 05/31/2022 No results found for: [id number], IRON, TIBC, C3, C4, MELISA, CANCA, ASO, [...] discharge transport been arranged?: No Signed David Mustafa MD [facility] 06/04/2022 11:39 AM [facility] 06-04-2022 Note ---- Attestation signed by Eddi [...] 80 QT Interval 358 QTC CALCULATION(BAZETT) 486 R-[place] -70 T Wave [place] 22 Impression Atrial fibrillation with rapid ventricular [...] medical history presented as a transfer from [facility] due to worsening exertional dyspnea. [...] to DOAC starting tomorrow. Keysha Hernandez MD Die Storage Worker - PGY4 [facility] 06-03-2022 Note ---- Attestation signed by Lora Uribe PharmD at 06/04/2022 1:58 PM ---- Patrice Kang completed heart failure education. Disease state, signs and symptoms of heart failure, diet/lifestyle, and when to seek medical attention were discussed along with medications and their dose, directions, and side effects. Time spent providing education was 15 minutes. Thanks, Samarai Latif, 06/03/22 [facility] 06-03-2022 Note Pt admitted to [facility] for acute systolic heart failure, estimated EF 25%. Pt has echo/cardiac cath scheduled. I will wait for current echo results to determine pt's eligibility to participate in cardiac rehab (CR) therapy with heart failure diagnosis and follow up with pt, if appropriate. JARON Rico tenter feeder Outpatient Coordinator Cardiac Rehab [facility] 06-03-2022 Note ---- Attestation signed by Sahil [...] 80 QT Interval 358 QTC CALCULATION(BAZETT) 486 R-[place] -70 T Wave [place] 22 Impression Atrial fibrillation with rapid ventricular [...] medical history presented as a transfer from [facility] due to worsening exertional dyspnea. [...] daily, Entresto, Farxiga, Aldactone. Keysha Hernandez MD Die Storage Worker - PGY4 [facility] 06-03-2022 Note Hospital Medicine Daily Progress Note - 06/03/2022 9:59 AM; Room: [facility]/3118-01 Admission: 05/31/2022 8:24 PM; Length of stay: 3 days THE HOSPITALIST TEAM PREFERS TO USE [employer] FOR COMMUNICATION 7AM-7PM. IF I DO NOT RESPOND WITHIN 15 MINUTES, PLEASE PAGE ME/CALL THROUGH THE VEHICLE OPERATOR TECHNICIAN. FROM 7PM-7AM, PLEASE PAGE [phone](COVR) Code Status: Full Code Discharge Destination: home [...] at 06/03/2022 0959 Last data filed at 06/02/2022 1958 Gross per 24 hour Intake 1200 ml [...] LDL 64 05/31/2022 No results found for: [id number], IRON, TIBC, C3, C4, MELISA, CANCA, ASO, PSA, CEA, CA125, CA199, AFP, CA153 Imaging ECG 12 lead Atrial fibrillation with rapid ventricular response Left axis deviation Anteroseptal infarct (cited on or before 31-MAY-2022) Abnormal ECG When compared with ECG of 31-MAY-2022 20:29, No significant change was found Discharge Planning Discharge Planning Does the patient need discharge transport arranged?: No Signed Israel Navarrete MD [facility] Medicine 06/03/2022 9:59 AM [facility] 06-02-2022 Note Hospital Medicine Daily Progress Note - 06/02/2022 12:04 PM; Room: 3118/3118-01 Admission: 05/31/2022 8:24 PM; Length of stay: 2 days THE HOSPITALIST TEAM PREFERS TO USE [email or web address] FOR COMMUNICATION 7AM-7PM. IF I DO NOT RESPOND WITHIN 15 MINUTES, PLEASE PAGE ME/CALL THROUGH THE VEHICLE OPERATOR TECHNICIAN. FROM 7PM-7AM, PLEASE PAGE [phone](COVR) Code Status: Full Code Discharge Destination: home [...] LDL 64 05/31/2022 No results found for: [id number], IRON, TIBC, C3, C4, MELISA, CANCA, ASO, PSA, CEA, CA125, CA199, AFP, CA153 Imaging ECG 12 lead Atrial fibrillation Left anterior fascicular block Possible Anterior infarct (cited on or before 31-MAY-2022) Abnormal ECG When compared with ECG of 31-MAY-2022 20:29, (unconfirmed) QT has shortened Confirmed by LETI, ([id number]), order editor Imtiaz MEDRANO, SAHIL Zacarias ([id number]) on 06/01/2022 11:58:43 AM Discharge Planning Discharge Planning Does the patient need discharge transport arranged?: Maybe Signed Israel Navarrete MD [facility] Medicine 06/02/2022 12:04 PM [facility] 06-01-2022 Note Nutrition Consult ac knowledged for newly dx HF. Will provide diet education prior to discharge; note Attending has indicated pt will remain in-house until at least Friday for cardiac cath. [facility] 06-01-2022 Note [facility] Medicine Daily Progress Note - 06/01/2022 12:05 PM; Room: [facility]/3118-01 Admission: 05/31/2022 8:24 PM; Length of stay: 1 days THE HOSPITALIST TEAM PREFERS TO USE [email or web address] FOR COMMUNICATION 7AM-7PM. IF I DO NOT RESPOND WITHIN 15 MINUTES, PLEASE PAGE ME/CALL THROUGH THE VEHICLE OPERATOR TECHNICIAN. FROM 7PM-7AM, PLEASE PAGE [phone](COVR) Code Status: Full Code Discharge Destination: home [...] LDL 64 05/31/2022 No results found for: [id number], IRON, TIBC, C3, C4, MELISA, CANCA, ASO, PSA, CEA, CA125, CA199, AFP, CA153 Imaging ECG 12 lead Atrial fibrillation Left anterior fascicular block Possible Anterior infarct (cited on or before 31-MAY-2022) Abnormal ECG When compared with ECG of 31-MAY-2022 20:29, (unconfirmed) QT has shortened Confirmed by DR. LETI ([id number]), order editor Imtiaz MEDRANO, SAHIL Zacarias ([id number]) on 06/01/2022 11:58:43 AM Discharge Planning Discharge Planning Does the patient need discharge transport arranged?: No Signed Israel Navarrete MD Hospital Medicine 06/01/2022 12:05 PM [facility] 05-31-2022 Note Hospital Medicine History and Physical 05/31/2022 8:30 PM THE HOSPITALIST TEAM PREFERS TO USE [employer] FOR COMMUNICATION 7AM-7PM. IF I DO NOT RESPOND WITHIN 15 MINUTES, PLEASE PAGE ME/CALL THROUGH THE VEHICLE OPERATOR TECHNICIAN. FROM 7PM-7AM, PLEASE PAGE [phone](COVR) Chief Complaint Direct transfer for new onset Afib and HF History of Present Illness Patrice Kang is an 56 y.o. male with no known significant past medical history, history of smoking and EtOH use, presents to the hospital today as a direct transfer from outside facility, [facility]. Patient initially presented at their [...] Diagnosis Date Noted Acute systolic heart failure ([facility]) 05/31/2022 Assessment and Plan New onset systolic [...] for anticoagulation. Cardiology consultation Encourage smoking cessation [facility] protocol for EtOH use. VTE Prophylaxis: [...] this hospital stay by a member of [facility]. Past Medical History None prior to [...] Not on f (more content not included)... [facility] Summary Purpose Family History No Family History Records FoundNo Family History Records FoundNo Family History Records Found Advance Directives No Advanced Directives Records FoundNo Advanced Directives Records FoundNo Advanced Directives Records Found Additional Source Comments (unrecognized sect ion and content) No Status Records FoundNo Status Records FoundNo Status Records Found INFORMATION SOURCE (unrecogn ized section and content) DATE CREATED AUTHOR 12/17/2017 [facility] l DATE CREATED AUTHOR AUTHOR'S ORGANIZ ATION 09/11/2022 [facility] pital DATE CREATED AUTHOR AUTHOR'S ORGANIZ ATION 05/30/2023 [facility] FOR RECORDS PERTAINING TO PATIENTS WHO [...] BE BASED ON THE PRIMARY CLINICAL RECORDS. [employer] provides no warranty or guarantee of the accuracy or completeness of information in this document.
[2023-06-02 13:38] LABS: Anion Gap 11.9; Calcium 8.9 mg/dL (8.5-10.1); Chloride 104 mmol/L (98-107); Estimated GFR (African America >60 (>=60); Estimated GFR (Non-African Ame >60 (>=60); Glucose 115 mg/dL (74-106); Potassium 3.9 mmol/L (3.5-5.1); Sodium 140 mmol/L (136-145)
== END 2023-06-02 13:09 | disposition home or self-care (01) ==
LOC: LAB 13:10
PROVIDERS: Visit Provider Internal Medicine Cardiovascular Disease
DX: I48.0 Paroxysmal atrial fibrillation (principal)
CPT/HCPCS: 36415; 80048; 85025